=== PATIENT | female | born 1930 | race African-American/Black ===

== ENCOUNTER 2017-11-15 13:11 | Emergency (ER) | payer OTHER ==
[~2017-11-15] VITALS: Ht 165.1 cm; Wt 89.8 kg
--- NOTE | ~2017-11-15 | EKG ---
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 : 1930 Requested By: Billy Calles Order Number: [id number] MD: Van Paulson Measurements Intervals [place] Rate: 60 P: -10 DE: 208 QRS: 42 QRSD: 65 T: 218 QT: 419 QTc: 419 Interpretive Statements Sinus rhythm Abnormal R-wave progression, early transition LVH with secondary repolarization abnormality Compared to ECG 02/26/2010 11:04:03 ST and T wave abnormality is more pronounced early R-wave progression is no longer present Electronically Signed On 11-15-2017 17:34:44 SUBSTATION SUPERINTENDENT by Van Paulson [email or web address] <ELECTRONICALLY SIGNED> By: Van Paulson MD, FACC 11/15/17 1734 1333 1333 Van Paulson MD, [facility] /EPI
[~2017-11-15 13:11] MED LIST: ACCUPRIL40 MG PO; ALLOPURINOL 10100 M1 PO; AMLODIPINE BESY10 MG PO; AVAPRO300 MG PO; AZITHROMYCIN 2250 MG; CRESTOR40 MG PO; DARVOCET-N 1001 EACH PO; FLEXERIL PO; FOLIC ACID 1 MG1 MG GT; GLUCOPHAGE500 MG PO; HYDROCHLOROTH12.5 MG PO; HYDROCHLOROTHIA25 M1 PO; KRILL OIL 3001 EACH PO; MUCINEX600 MG; MULTIVITAMINS PO; NORVASC 5 MG TAB5 MG PO; OSELB75; PREDNISONE 10 M10 M1; SIMVASTATIN80 MG PO
[2017-11-15 13:59] LABS: URINE BILIRUBIN NEGATIVE (Negative); URINE BLOOD 1+ (Negative); URINE CLARITY CLEAR; URINE COLOR YELLOW; URINE GLUCOSE-RANDOM* NEGATIVE (Negative); URINE KETONES NEGATIVE (Negative); URINE LEUKOCYTES NEGATIVE (Negative); URINE NITRITE NEGATIVE (Negative); URINE PROTEIN (DIPSTICK) 2+ (Negative); URINE SPECIFIC GRAVITY 1.015 (1.005-1.035); URINE UROBILINOGEN 0.2 E.U./dl (0.2-1.0)
[2017-11-15 14:06] LABS: HEMOGLOBIN 12.5 gm/dL (12.0-15.0); MCH 24.3 pg (26.0-34.0); MCV 73.7 fL (80.0-100.0); PLATELET COUNT 219 thou/uL (150-400); RBC 5.15 mil/uL (4.20-5.00); RDW 15.9 % (10.5-14.5); WBC 7.5 thou/uL (4.0-11.0)
[2017-11-15 14:10] LABS: BACTERIA 1-9 Few /HPF (None Seen); CASTS None Seen /LPF (None Seen); SQUAMOUS 0-3 Few /LPF (0-3); URINE RBC 0-2 Rare /HPF (0-2); URINE WBC None Seen /HPF (0-5)
[2017-11-15 14:11] LABS: CRYSTALS None Seen /LPF (None Seen)
[2017-11-15 14:16] LABS: ANION GAP 6 mmol/L (7-16); BUN 28 mg/dL (7-18); CALCIUM 10.4 mg/dL (8.5-10.1); CHLORIDE 86 mmol/L (98-107); CO2 33 mmol/L (21-32); GLUCOSE 110 mg/dL (74-106); SODIUM 125 mmol/L (136-145)
[2017-11-15 14:18] LABS: POTASSIUM 2.9 mmol/L (3.5-5.1)
[2017-11-15 14:25] LABS: ALBUMIN 3.9 g/dL (3.4-5.0); SGOT 24 U/L (15-37); TOTAL BILIRUBIN 1.1 mg/dL (<0.1-1.0); TOTAL PROTEIN 7.2 g/dL (6.4-8.2); TROPONIN-I < 0.04 ng/mL (<0.06)
[2017-11-15 14:27] LABS: ABSOLUTE NEUTROPHILS 4.4 thou/uL (1.4-8.2)
[2017-11-15 14:29] LABS: ANISOCYTOSIS 1+; MICROCYTES 1+; OVALOCYTES FEW
[2017-11-15 14:41] LABS: SGPT 21 U/L (30-65)
[2017-11-15] MEDS ORDERED: POTASSIUM20 PO (15:20)
[2017-11-15 15:51] VITALS: BP 127/74
== END 2017-11-15 15:53 | disposition home or self-care (01) ==
LOC: ER 13:11
PROVIDERS: Physician Assistant
DX: I12.9 Hypertensive chronic kidney disease with stage 1 through stage 4 chronic kidney disease, or unspecified chronic kidney disease (principal); N18.9 Chronic kidney disease, unspecified; T50.995A Adverse effect of other drugs, medicaments and biological substances, initial encounter; E87.6 Hypokalemia; E87.1 Hypo-osmolality and hyponatremia; R55 Syncope and collapse; M25.561 Pain in right knee; M25.511 Pain in right shoulder; E78.00 Pure hypercholesterolemia, unspecified; M10.9 Gout, unspecified; Z90.710 Acquired absence of both cervix and uterus; Z88.8 Allergy status to other drugs, medicaments and biological substances; Y92.89 Other specified places as the place of occurrence of the external cause

== ENCOUNTER 2018-06-05 13:46 | Inpatient (IN) | payer OTHER ==
[~2018-06-05] VITALS: Ht 170.2 cm; Wt 85.9 kg
--- NOTE | ~2018-06-05 | PATH ---
[facility] [address] [address] PATHOLOGY RPT PROCEDURE Name: RICH DOWLING Room #: 204-P DIS IN M.R.#: [id number] Admission: 06/05/18 Date of : 31 Discharge: 06/08/18 Report #: [id number] Path Case #: [id number] [facility] Accession Number: [id number] . 01 Material submitted: . PART A: GASTRITIS BX PART B: SUBMUCOSAL NODULES (CARDIA OF STOMACH) BX . 01 Clinical history: . Atypical chest pain, gastritis, submucosal nodule in cardia of stomach, rule out H. pylori . 02 Diagnosis: A. Gastric biopsy "gastric biopsy": - Mild to moderate chronic reactive gastropathy with mild chronic inflammation. - The immunoperoxidase stains for Helicobacter pylori is negative. . B. 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 - The immunoperoxidase stains for Helicobacter pylori is negative. (SHA:pit 06/08/2018) QTP/06/08/2018 . 02 Electronically signed: . Yuval Marks MD, Pathologist NPI- [id number] . 01 Gross description: . A. Received in formalin "Rich Dowling, gastritis BX rule out H. pylori" are 4 soft nunez tissue fragments, 0.1-0.3 cm which are entirely submitted as A1. . B. Received in formalin labeled "Rich Dowling, submucosal nodule cardia of stomach BX" is a 0.3 cm nunez and hemorrhagic tissue fragment which is entirely submitted as B1. (POLI; 06/07/2018) JBR/JBR . 02 Pathologist provided ICD-10: K29.50, K31.9 . 02 CPT . 779712, 769875, R84288 Specimen Comment: A courtesy copy of this report has been sent to Specimen Comment: [phone], . [place] [address] PATHOLOGY RPT PROCEDURE Name: RICH DOWLING Room #: 204-P [facility] IN M.R.#: [id number] Admission: 06/05/18 Date of : 31 Discharge: 06/08/18 Report #: [id number] Path Case #: [id number] Specimen Comment: Report sent to / DR MASON Performed at: [address], [place], [place] [id number] MD Juan Fried MD Phone: [phone] Performed at: [address] [id number] MD Luann Paez MD Phone: [phone]
--- NOTE | ~2018-06-05 | HC ---
[facility] [place] [address] [place] [address] CONSULTATION Name: RICH RIVERA Room #: 204-P [facility] IN M.R.#: [id number] Admission: 06/05/18 Attend Phys: Daniel Denny MD Discharge: 06/08/18 Date of : 31 Report #: [id number] THIS REPORT FOR: //name// CC: Daniel Denny Nephrology Consultation REASON FOR CONSULTATION: Chronic kidney disease and electrolyte imbalance. HISTORY OF PRESENT ILLNESS: This 88-year-old patient has chronic kidney disease with a baseline creatinine between 1.5 and 2 at the age of 88. She has longstanding hypertension, presumed hypertensive nephrosclerosis, has had acute renal injury in the past due to overuse of nonsteroidal anti-inflammatory medications and saw my partner, Dr. Santiago in 2013 with that problem. At this time, she was admitted with shoulder pain, which precipitated a rash of ibuprofen, which resulted in upset stomach, nausea, vomiting, poor p.o. intake, which resulted in electrolyte imbalance, further elevation of serum creatinine and weakness. She was admitted 2 days ago with those problems. Today, she had EGD, which revealed erosive antral lesions, which appeared to be healing. At the time of admission, her creatinine was 2.5, serum sodium of 117. Her urine sodium today is 56 and her urine creatinine 35, urine osmolarity pending. She also had hypokalemia at the time of admission with a serum potassium of 2.9, now up to 3.5 with replacement. Serum sodium has gone from 117 to 123 with gentle IV saline. PAST MEDICAL HISTORY: Longstanding hypertension, chronic kidney disease as mentioned. She has had multinodular goiter, hyperuricemia; hypertension, treated with irbesartan and amlodipine, as well has been on chronic hydrochlorothiazide, also takes Krill oil. ALLERGIES: Listed to NAPROXEN. REVIEW OF SYSTEMS: GENERAL: She has been feeling poorly and weak with some nausea and vomiting and poor appetite. EYES: Vision okay with corrective lenses. ENT: No mouth sores or ulcers. Hearing okay. ENDOCRINE: No diabetes or thyroid disease. RESPIRATORY: No shortness of breath, wheezing or asthma. CARDIAC: No palpitations, angina, heart failure or history of NH. GASTROINTESTINAL: As above. GENITOURINARY: Good urinary stream without dysuria or renal stone disease. NEUROLOGIC: No seizure, syncope, stroke or history of nephropathy. FAMILY HISTORY: Positive for hypertension. [address] [address] CONSULTATION Name: RICH RIVERA Room #: 204-P [facility] IN [facility].#: [id number] Admission: 06/05/18 Attend Phys: Daniel Denny MD Discharge: 06/08/18 Date of : 31 Report #: [id number] PHYSICAL EXAMINATION: GENERAL: This is an elderly patient. She is bright, alert, feeling well, eating her dinner. No apparent issues or problems at the current time. SKIN: Unremarkable. SKELETAL: Well developed, well nourished. HEENT: Extraocular movements full. Vision okay with corrective lenses. No scleral icterus. Hearing and vision intact. Mucous membranes moist. Tongue, buccal mucosa benign. NECK: Supple, no carotid bruits are heard. CHEST: Clear to auscultation. HEART: Regular with systolic murmur. ABDOMEN: Soft and nontender, without organomegaly. EXTREMITIES: Show no peripheral edema. Peripheral pulses are diminished. NEUROLOGIC: Grossly intact. LABORATORY DATA: As mentioned. Urine was isosthenuric at presentation without evidence of cells or casts. The hemoglobin is 11.9, the platelets are 251. Sodium 123, potassium 3.5, chloride 91, bicarbonate 25, BUN 28, creatinine 1.6. ASSESSMENT AND PLAN: Hypo-osmolar syndrome. She was hypo-osmolar multifactorially with poor p.o. intake, nausea, vomiting, hydrochlorothiazide, which diminishes free water clearance and leads to volume depletion and ibuprofen, which also diminishes free water clearance, as well as her chronic kidney disease, which diminishes free water clearance. She is gradually coming back. I believe at this point, her blood pressure being well controlled, volume status being okay that a couple of salt pills might help us accelerate the slow recovery process, as well as blood pressure stays down. She really does not need much else in the way of treatment. I suspect her urine osmolarity will come back showing some diminishment of free water clearance without a real dilute urine. As the ibuprofen, hydrochlorothiazide wear off, she may come back grinder to normal. With her chronic kidney disease, probably will remain relatively isosthenuric and adequate solute intake, which she appears to be now approaching will certainly help rebalance her serum sodium and get her back to normal. Certainly, hypothyroidism must be considered. I note that she had a very low TSH in the past, but no TSH measured recently and so that will need to be rechecked and I really do not believe given the hypokalemia that we need to worry much about the possibility of adrenal insufficiency here. We will follow her along. Thank you for letting me see this very pleasant woman. <ELECTRONICALLY SIGNED> By: Luis Metzger MD 06/28/18 1054 1757 0049 Luis Metzger MD /nt
--- NOTE | ~2018-06-05 | H ---
[facility] [place] [address] [place] [address] HISTORY AND PHYSICAL Name: RICH RIVERA Room #: 204-P [facility] IN M.R.#: [id number] Admission: 06/05/18 Attend Phys: Daniel Denny MD Discharge: Date of : 31 Report #: [id number] THIS REPORT FOR: //name// CC: Daniel Denny DATE OF SERVICE: 06/05/2018 CHIEF COMPLAINT: Chest pain, fatigue, no appetite. HISTORY OF PRESENT ILLNESS: The patient came to the Emergency Room with these complaints and was found to have a serum sodium of 117 along with a potassium of 2.5 and an elevated creatinine and required treatment in the Emergency Room and inpatient admission. She was seen in my office on 05/25/2018 for her right shoulder pain and referred to Dr. Rosales with whom she has an appointment on 06/06/2018. She had blood drawn on that day and was rescheduled to return to discuss the results. Her right shoulder pain has been present for a month or more and had been getting worse for the last several weeks. She reports having taken an occasional ibuprofen for it. She then developed poor appetite and anorexia slightly more than a week ago and has persisted on crackers and juice since then. She told the GI service that she was taking ibuprofen on a daily basis and that her acid reflux symptoms as "heartburn" became more prominent. She began taking yfra-khn-tupoxop Tums more frequently. At the same time, her appetite continued to decrease. PAST MEDICAL HISTORY: Significant for hypertension, gout, chronic kidney disease and a past history of kidney injury from NSAID medications for which she saw Dr. Santiago on 03/26/2014. Her creatinine in my office on 05/25/2018 had improved to 1.55 with a BUN of 22 from previous February values of 1.97 and 26. Her calcium has been high at 10.5 and 10.7, and she has mildly elevated parathyroid hormone of 68 (14-64). She has had low potassiums in the past. Hyperlipidemia. She has a large multinodular goiter. She has had several scattered pulmonary nodules in the past. She has chronic microcytosis running a hemoglobin of 13.4 and 12.7 earlier this summer in my office. CURRENT MEDICATIONS: She has continued to take hydrochlorothiazide 25 mg 1/[address] [address] HISTORY AND PHYSICAL Name: NICOLERICH EVELIN Room #: 204-P [facility] IN [facility].#: [id number] Admission: 06/05/18 Attend Phys: Daniel Denny MD Discharge: Date of : 31 Report #: [id number] daily while she has been ill and she does this ordinarily for hypertension, irbesartan 300 mg 1/2 tablet daily, amlodipine 10 mg 1 full tablet daily, rosuvastatin 40 mg 1/2 tablet daily, allopurinol 100 mg 1 or 2 tablets most often during the summer season when tomatoes are fresh and plentiful because she loves tomatoes and they trigger her gout. She no longer takes prescription potassium, but takes an oral hzcj-tmm-pywcnwo potassium supplement daily. An additional medication is aggx-kxf-bwhdxlv Krill oil and multiple vitamin tablets. ALLERGIES: ONLY ONE LISTED IS NAPROXEN, BUT SHE HAS A HISTORY OF RENAL INJURY FROM NSAID MEDICATIONS. REVIEW OF SYSTEMS: Negative except for the HPI. FAMILY HISTORY: Noncontributory. PHYSICAL EXAMINATION: GENERAL: Shows an 88-year-old female, in her hospital bed. She is seen approximately 12 hours after having received replacement doses of IV and oral potassium and a liter of saline, and she feels much better. HEENT: Remarkable for her oropharynx still being dry. NECK: Full from her known multinodular goiter. LUNGS: Clear. HEART: Her heart tones are normal, and there is a soft systolic murmur present. ABDOMEN: Soft, nontender, without hepatosplenomegaly or masses. EXTREMITIES: There is no pedal edema present in the lower extremities. NEUROLOGIC: Screening neurological examination is intact. LABORATORY DATA: Serum sodium was 117 in the Emergency Room, and this morning has risen to 120. It was 138 on 05/25/2018 in the office. Potassium was 2.5 in the ER and 12 hours later, is now 3.4. It was 3.8 on 05/25/2018 in the office. Creatinine was 2.0 in the ER and now it is 1.8 with the baseline being 1.55 on 05/25/2018 and was 1.97 on 03/14/2018. BUN remains at 27, it was 22 in the office on 05/25/2018 and was 26 on 03/14/2018 in the office. Magnesium is 2.0 and uric acid is 4.4. Albumin is 4.1. D-dimer is normal. Hemoglobin is 13.1 after dropping from 13.9 in the ER and response to rehydration. MCV is 73.9, and in the office on 05/25/2018, it was 77.5 and 2 months earlier, 77.9. Urinalysis shows 2+ blood with 10 epithelial cells and rare bacteria, and a culture is pending. Chest x-ray (because of a report of cough) suggested minor basilar atelectasis along with previously known large goiter in the right superior mediastinum that appears unchanged. [address] [place] [address] HISTORY AND PHYSICAL Name: RICH RIVERA Room #: 204-P [facility] IN M.R.#: [id number] Admission: 06/05/18 Attend Phys: Daniel Denny MD Discharge: Date of : 31 Report #: [id number] ASSESSMENT: 1. Profound hyponatremia and hypokalemia as a result of decreased oral intake while continuing to take her hydrochlorothiazide. 2. Progressively severe right shoulder pain. 3. Increasing heartburn and reflux disease adding to/causing her poor appetite, likely from non-steroidal antiinflammatory medication. 4. She has been taking ibuprofen regularly, it is unclear if it is 1 or more tablets a day. 5. 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 6. Progressive microcytosis. 7. Acute kidney injury on top of chronic kidney disease, stage 3. 8. Hyperlipidemia. 9. Nonspecific cough. 10. Hypercalcemia with an elevated parathyroid hormone of 68. 11. Volume depletion and dehydration. 12. Other medical problems as mentioned above. PLAN: The patient is to continue her intravenous saline to replace her last serum sodium as well as reexpand her vascular volume slowly. The saline contains potassium and she is also given oral potassium replacement. She will be seen in orthopedic consultation because of her right shoulder pain that seemed to precipitate this current episode of illness. She will be seen in gastroenterology consultation because of her epigastric pain and discomfort leading to the poor oral intake, which led to her electrolyte disturbance. CT scan will reassess her thyroid and small pulmonary nodules seen on previous CT scan as well as examine the abdomen and pelvis for causes of anorexia. By: 2041 2211 Daniel Denny MD /nt
--- NOTE | ~2018-06-05 | P ---
[facility] [place] [address] [place] [address] PROCEDURE REPORT Name: RICH RIVERA Room #: 204-P [facility] IN M.R.#: [id number] Admission: 06/05/18 Attend Phys: Daniel Denny MD Discharge: Date of : 31 Report #: [id number] THIS REPORT FOR: //name// CC: Daniel Denny MD BRIEF HISTORY: The patient is an 88-year-old woman who presented with atypical chest pain and upper abdominal pain. It was felt to be noncardiac in etiology. PREOPERATIVE DIAGNOSES: Atypical chest pain and upper abdominal pain. POSTOPERATIVE DIAGNOSES: 1. Moderate erosive antral gastritis, prepyloric antrum. 2. Small, less than 1-cm subcutaneous nodule, cardia of stomach. 3. Small 1-2-cm sliding type hiatus hernia. MEDICATIONS: Deep sedation with propofol per anesthesia. SPECIMENS: 1. Biopsies of erosive gastritis. 2. Biopsies of nodule, cardia of stomach. ESTIMATED BLOOD LOSS: 3 mL. PROCEDURE: EGD with biopsy. FINDINGS: Prior to propofol sedation, procedure of upper endoscopy was discussed with the patient as well as potential risks and its complications. She indicates she understands and desires to proceed. DESCRIPTION OF PROCEDURE: With the patient in left lateral decubitus position, the Olympus video endoscope was inserted in the cervical esophagus under direct vision without difficulty. Examination of this organ through its entire length revealed normal esophageal mucosa down the squamocolumnar junction. Squamocolumnar junction was inspected and noted to be unremarkable. No ulcers, erosions or Nicholas mucosa was seen. Intermittently, a small 1-2-cm sliding type hiatus hernia was noted. The scope was advanced into the stomach, which was examined on end view as well as retroflexed views. She was noted to have moderate erosive changes in the prepyloric antrum. They were shallow, but larger than typically seen. It is possible these may be healing ulcers. However, ulcer craters were not seen this time. Multiple biopsies were obtained. Upon retroflexion, the mucosa in the proximal stomach was noted to be normal. However, there was a small, less than 1-cm submucosal nodule in the cardia of the stomach. It had a smooth and benign appearance. Multiple biopsies were obtained. However, since this is submucosal, biopsies may be nondiagnostic. The pylorus, duodenal bulb and postbulbar duodenal sweep were unremarkable. The duodenal papilla was identified and noted to be unremarkable. [address] [address] PROCEDURE REPORT Name: RICH RIVERA Room #: 204-P [facility] IN M.R.#: [id number] Admission: 06/05/18 Attend Phys: Daniel Denny MD Discharge: Date of : 31 Report #: [id number] At that point, the scope was slowly withdrawn and careful circumferential views confirmed the above findings. The patient tolerated the procedure well. DISPOSITION: The patient with epigastric pain and atypical chest pain. This may be result of reflux disease, although erosive esophagitis was not seen. I would agree with use of a proton pump inhibitor. She should also be cautious with the use of nonsteroidals. She may have had ulcers she reports also in the past. We will follow up on biopsies for H. pylori and if positive, she may benefit from treatment. The submucosal nodule is small and less than 1 cm, has a benign appearance. The biopsies may or may not be diagnostic. 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 At this point in her life, this is likely a minimal significance to her. However, we will follow up on biopsies and make further recommendations as needed. <ELECTRONICALLY SIGNED> By: Gatito Ray MD 06/07/18 1502 1148 1321 Gatito Ray MD /nt
--- NOTE | ~2018-06-05 | EKG ---
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 MAGUIRE : 1930 Requested By: Hernandez Madden Order Number: [id number] MD: Van Paulson Measurements Intervals [place] Rate: 56 P: -62 MA: 227 QRS: 33 QRSD: 67 T: 123 QT: 421 QTc: 407 Interpretive Statements Sinus or ectopic atrial bradycardia Prolonged MA interval Abnormal R-wave progression, early transition LVH with secondary repolarization abnormality ST depression, diffuse lds Compared to ECG 11/15/2017 13:33:04 No significant change was found Electronically Signed On 06-06-2018 7:54:59 CDT by Van Paulson [email or web address] <ELECTRONICALLY SIGNED> By: Van Paulson MD, [facility] 06/06/18 0754 1413 1413 Van Paulsno MD, [facility] /EPI
[~2018-06-05 13:46] MED LIST changes: +POTASSIUM20 PO
[2018-06-05 13:57] VITALS: BP 115/57
[2018-06-05] MEDS ORDERED: TRAMADOL 50 MG50 MG PO (14:38)
[2018-06-05 14:40] LABS: ABSOLUTE NEUTROPHILS 6.1 thou/uL (1.4-8.2); EOSINOPHILS 0.3 % (0.0-3.0); HEMATOCRIT 41.7 % (37.0-47.0); HEMOGLOBIN 13.9 gm/dL (12.0-15.0); LYMPHOCYTES 22.1 % (24.0-44.0); MCH 24.6 pg (26.0-34.0); MCHC 33.3 g/dL (28.0-37.0); MCV 73.9 fL (80.0-100.0); MONOCYTES 11.6 % (1.0-8.0); PLATELET COUNT 291 thou/uL (150-400); RBC 5.64 mil/uL (4.20-5.00); RDW 14.7 % (10.5-14.5); WBC 9.4 thou/uL (4.0-11.0)
[2018-06-05 14:54] LABS: BUN 27 mg/dL (7-18); CALCIUM 10.8 mg/dL (8.5-10.1); CHLORIDE 80 mmol/L (98-107); CO2 29 mmol/L (21-32); GLUCOSE 145 mg/dL (74-106)
[2018-06-05 14:56] LABS: ANION GAP 8 mmol/L (7-16)
[2018-06-05 14:57] LABS: POTASSIUM 2.9 mmol/L (3.5-5.1); SODIUM 117 mmol/L (136-145)
[2018-06-05 15:02] LABS: ALBUMIN 4.1 g/dL (3.4-5.0); SGOT 26 U/L (15-37); SGPT 26 U/L (30-65); TOTAL BILIRUBIN 1.7 mg/dL (<0.1-1.0); TOTAL PROTEIN 7.9 g/dL (6.4-8.2); TROPONIN-I <0.06 ng/mL (<0.06)
[2018-06-05 15:08] LABS: HYPOCHROMASIA 2+; MICROCYTES 2+
[2018-06-05 15:24] LABS: CALCIUM 10.8 mg/dL (8.5-10.1)
[2018-06-05 15:26] LABS: POTASSIUM 2.5 mmol/L (3.5-5.1)
[2018-06-05 17:04] VITALS: BP 144/48
[2018-06-05 19:24] LABS: CALCIUM 10.7 mg/dL (8.5-10.1); CREATININE 1.8 mg/dL (0.6-1.0)
[2018-06-05 20:18] VITALS: BP 138/59
[2018-06-06 00:03] VITALS: BP 118/53
[2018-06-06 01:04] LABS: URINE BILIRUBIN NEGATIVE (Negative); URINE BLOOD 2+ (Negative); URINE CLARITY CLEAR; URINE COLOR YELLOW; URINE GLUCOSE-RANDOM* NEGATIVE (Negative); URINE KETONES NEGATIVE (Negative); URINE NITRITE-REFLEX NEGATIVE (Negative); URINE PROTEIN (DIPSTICK) TRACE (Negative); URINE UROBILINOGEN 0.2 E.U./dl (0.2-1.0)
[2018-06-06 01:05] LABS: URINE LEUKOCYTES-REFLEX 1+ (Negative)
[2018-06-06 01:10] LABS: SQUAMOUS 4-10 Moderate /LPF (0-3)
[2018-06-06 01:11] LABS: BACTERIA-REFLEX 1-9 Few /HPF (None Seen); CASTS None Seen /LPF (None Seen); CRYSTALS None Seen /LPF (None Seen); MUCUS None Seen strn/LPF (None Seen); URINE RBC 0-2 Rare /HPF (0-2); URINE WBC-REFLEX 0-5 Rare /HPF (0-5)
[2018-06-06 02:05] LABS: ABSOLUTE NEUTROPHILS 5.4 thou/uL (1.4-8.2); BASOPHILS 0.9 % (0.0-2.0); EOSINOPHILS 0.4 % (0.0-3.0); HEMATOCRIT 39.2 % (37.0-47.0); HEMOGLOBIN 13.1 gm/dL (12.0-15.0); LYMPHOCYTES 19.7 % (24.0-44.0); MCH 24.7 pg (26.0-34.0); MCHC 33.4 g/dL (28.0-37.0); MCV 73.8 fL (80.0-100.0); MONOCYTES 10.8 % (1.0-8.0); PLATELET COUNT 275 thou/uL (150-400); POLYS 68.2 % (36.0-66.0); RBC 5.32 mil/uL (4.20-5.00); RDW 14.8 % (10.5-14.5); WBC 7.9 thou/uL (4.0-11.0)
[2018-06-06 02:16] LABS: ALBUMIN 3.5 g/dL (3.4-5.0); ANION GAP 8 mmol/L (7-16); BUN 27 mg/dL (7-18); CALCIUM 9.9 mg/dL (8.5-10.1); CHLORIDE 85 mmol/L (98-107); CO2 27 mmol/L (21-32); CREATININE 1.8 mg/dL (0.6-1.0); GLUCOSE 117 mg/dL (74-106); POTASSIUM 3.4 mmol/L (3.5-5.1); SGOT 23 U/L (15-37); SGPT 25 U/L (30-65); SODIUM 120 mmol/L (136-145); TOTAL BILIRUBIN 1.4 mg/dL (<0.1-1.0); TOTAL PROTEIN 6.9 g/dL (6.4-8.2); TROPONIN-I <0.06 ng/mL (<0.06)
[2018-06-06 03:46] VITALS: BP 109/52
[2018-06-06 08:24] VITALS: BP 111/54
[2018-06-06 11:30] VITALS: BP 111/54
[2018-06-06 12:28] LABS: % SATURATION 27 % (20-39); IRON 86 ug/dL (50-170); TIBC 323 ug/dL (250-450)
[2018-06-06 15:31] VITALS: BP 103/40
[2018-06-06 19:53] VITALS: BP 127/51
[2018-06-07 03:20] LABS: HEMATOCRIT 36.2 % (37.0-47.0); HEMOGLOBIN 11.9 gm/dL (12.0-15.0); MCH 24.6 pg (26.0-34.0); MCHC 32.8 g/dL (28.0-37.0); RBC 4.83 mil/uL (4.20-5.00); RDW 14.8 % (10.5-14.5); WBC 7.5 thou/uL (4.0-11.0)
[2018-06-07 03:31] LABS: ALBUMIN 3.2 g/dL (3.4-5.0); CALCIUM 9.1 mg/dL (8.5-10.1); CREATININE 1.6 mg/dL (0.6-1.0); POTASSIUM 3.5 mmol/L (3.5-5.1); TOTAL BILIRUBIN 1.3 mg/dL (<0.1-1.0); TOTAL PROTEIN 6.1 g/dL (6.4-8.2)
[2018-06-07 05:14] VITALS: BP 108/48
[2018-06-07 07:44] VITALS: BP 107/54
[2018-06-07 09:28] LABS: URINE POTASSIUM-RANDOM* 22.1 mmol/L
[2018-06-07 12:25] VITALS: BP 126/56
[2018-06-07 13:19] LABS: ABSOLUTE RETIC COUNT 0.0609 10^6/uL; OBSERVED RETIC COUNT 1.29 % (0.6-2.6)
[2018-06-07 15:33] VITALS: BP 126/56
[2018-06-07 19:58] VITALS: BP 107/51
[2018-06-08 03:18] LABS: ALBUMIN 3.3 g/dL (3.4-5.0); CALCIUM 9.4 mg/dL (8.5-10.1); CREATININE 1.6 mg/dL (0.6-1.0); PHOSPHORUS 2.9 mg/dL (2.5-4.9); POTASSIUM 3.8 mmol/L (3.5-5.1)
[2018-06-08 04:22] VITALS: BP 95/45
[2018-06-08 08:10] VITALS: BP 119/56
[2018-06-08] MEDS ORDERED: VOLTAREN GEL 1100 G2 TOP (08:51)
[2018-06-08] MEDS ORDERED: NORCO 5-325 TA1 EACH PO (08:51)
[2018-06-08] MEDS ORDERED: PANTOPRAZOLE SO40 M1 PO (08:51)
[2018-06-08] MEDS ORDERED: TRAMADOL 50 MG50 MG PO (08:53)
[2018-06-08 09:35] VITALS: BP 119/56
== END 2018-06-08 10:54 | disposition home or self-care (01) | DRG 683 ==
LOC: ER 13:46 → EROBS 15:42 → 2N 15:42 → ENTRNSPT 06-08 10:29 → EDTRNSPTSTS 06-08 10:30 → 2N 06-08 10:54
PROVIDERS: Emergency Medicine; Internal Medicine; Nurse Practitioner; Specialist
PROC: 0DB68ZX Excision of Stomach, Via Natural or Artificial Opening Endoscopic, Diagnostic (ICD-10-PCS; principal; 2018-06-07)
DX: N17.9 Acute kidney failure, unspecified (principal); E87.1 Hypo-osmolality and hyponatremia; K29.00 Acute gastritis without bleeding; R63.0 Anorexia; E78.00 Pure hypercholesterolemia, unspecified; M10.9 Gout, unspecified; K57.90 Diverticulosis of intestine, part unspecified, without perforation or abscess without bleeding; E87.6 Hypokalemia; E78.5 Hyperlipidemia, unspecified; R12 Heartburn; K21.9 Gastro-esophageal reflux disease without esophagitis; N18.3 Chronic kidney disease, stage 3 (moderate); I12.9 Hypertensive chronic kidney disease with stage 1 through stage 4 chronic kidney disease, or unspecified chronic kidney disease; E83.52 Hypercalcemia; E86.0 Dehydration; E86.9 Volume depletion, unspecified; K44.9 Diaphragmatic hernia without obstruction or gangrene; R91.1 Solitary pulmonary nodule; M13.88 Other specified arthritis, other site; Z90.710 Acquired absence of both cervix and uterus; Z88.8 Allergy status to other drugs, medicaments and biological substances; Z79.899 Other long term (current) drug therapy; Z90.49 Acquired absence of other specified parts of digestive tract
CPT/HCPCS: 10081; 62110; 62900; 70005

== ENCOUNTER 2018-07-20 19:59 | Inpatient (IN) | payer OTHER ==
[~2018-07-20] VITALS: Ht 165.1 cm; Wt 83.0 kg
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
--- NOTE | ~2018-07-20 | PATH ---
[facility] [address] [place] [address] PATHOLOGY RPT PROCEDURE Name: RICH DOWLING EVELIN Room #: 352-P DIS IN M.R.#: [id number] Admission: 07/20/18 Date of : 31 Discharge: 07/23/18 Report #: [id number] Path Case #: [id number] [facility] Accession Number: [id number] . 01 Material submitted: . BX OF ANTRUM TO R/O H. PYLORI . 01 Clinical history: . Epigastric pain . 02 Diagnosis: Gastric biopsy, "biopsy of antrum, rule out H. pylori": - Mild chronic reactive gastropathy. - The immunoperoxidase stain for Helicobacter pylori is negative. . (SHA:vjm;07/22/2018) AGA/07/22/2018 . 02 Electronically signed: . Yuval Marks MD, Pathologist NPI- [id number] . 01 Gross description: . Received in formalin labeled "Rich Dowling, BX of antrum to rule out H. pylori," is a single segment of nunez soft tissue measuring 0.5 cm in maximum dimension. The specimen is entirely submitted in cassette A1. (TSD; 07/21/2018) TOB/TOB . 02 Pathologist provided ICD-10: K31.9 . 02 CPT . 481329, N15537 Specimen Comment: A courtesy copy of this report has been sent to Specimen Comment: [phone], . Specimen Comment: Report sent to / DR MASON Specimen Comment: A duplicate report has been generated due to demographic updates. Performed at: [address], [place] [id number] MD Juan Fried MD Phone: [phone] Performed at: [address] [id number] MD Luann Paez MD Phone: [phone]
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
--- NOTE | ~2018-07-20 | EKG ---
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: SISI : 1930 Requested By: Emily Russell Order Number: [id number] MD: Leonel Mendez Measurements Intervals [place] Rate: 67 P: -50 SC: 228 QRS: 33 QRSD: 78 T: 188 QT: 403 QTc: 426 Interpretive Statements Sinus or ectopic atrial rhythm Prolonged SC interval Abnormal R-wave progression, early transition Probable LVH with secondary repol abnrm ST depression, consider ischemia, diffuse lds Compared to ECG 06/05/2018 14:13:29 Electronically Signed On 07-21-2018 8:42:54 CDT by Leonel Mendez [email or web address] <ELECTRONICALLY SIGNED> By: Leonel Mendez MD 07/21/18841 57 57 Leonel Mendez MD /EPI
--- NOTE | ~2018-07-20 | D ---
[facility] [place] [address] DISCHARGE SUMMARY Name: RICH RIVERA Room #: 352-P [facility] IN M.R.#: [id number] Admission: 07/20/18 Attend Phys: Daniel Denny MD Discharge: 07/23/18 Date of : 32 Report #: [id number] THIS REPORT FOR: //name// CC: Gatito Denny DATE OF SERVICE: 07/23/2018 SUMMARY OF HISTORY AND PHYSICAL: Abdominal and epigastric pain: The patient presented to the Emergency Room after having a week's worth of progressive abdominal pain. She described the discomfort as being worse when eating and better when not eating. The pain was not radiating. Previous EGD was done 06/05/2018 with moderate erosive antral gastritis in the prepyloric area that could have been healing ulcers. She was also found to have severely low sodium of 119 and low potassium of 2.5 and required admission for evaluation and correction of these abnormalities. SUMMARY OF HOSPITAL COURSE: She was treated with intravenous normal saline with potassium added throughout her hospital stay and her serum sodium slowly increased from 119 to 125 to 131 to 133 on the day of discharge. The potassium increased from 2.5 to 3.5 on the day of discharge. She was volume depleted as evidenced by a BUN of 23 on admission that dropped to 18 and a creatinine of 1.9 that dropped to 1.4 as the IV fluids were continued. Her bilirubin was elevated at 2.2 on admission and dropped to 0.9. Her liver enzymes were not elevated. Total protein was 7.9 and dropped to 6.0 with rehydration, albumin 4.0 dropped to 3.0 and hemoglobin dropped from 14.3 to 10.9. She was seen in GI consultation and an EGD was performed. Additional information obtained by Dr. Lilian Hopkins showed that the patient had not taken her Protonix at home (which was prescribed on her hospitalization from 06/05/2018 to 06/08/2018), but did take her Aleve, which she had been told not to take. The EGD again showed erosive antral gastritis. The small sliding hiatal hernia was not seen on this followup EGD. There may have been a possible segment of Nicholas's in the distal esophagus and a lipoma in the cardia was again seen. In the Emergency Room, she was given a GI cocktail and her symptoms completely resolved for a short time. She clearly remembered the medication when later she said that she wanted to take that white stuff that was in the small container. Her symptoms improved with resumption of twice daily proton pump inhibitor ____. She did not get NSAID medications in the hospital. On the day of discharge, she was eating a normal diet, but did say that she would like something more to help ease her stomach, and therefore Carafate will be added twice daily at home. She has been on multiple hypertensive medications in the past of amlodipine, [address] [address] DISCHARGE SUMMARY Name: RICH RIVERA Room #: 352-P [facility] IN Julio.Bashir#: [id number] Admission: 07/20/18 Attend Phys: Daniel Denny MD Discharge: 07/23/18 Date of : 31 Report #: [id number] irbesartan and hydrochlorothiazide. In the hospital, adequate blood pressure control was present with amlodipine 10 mg as a single agent being 100/40 to 127/56. Her respirations were 15 and pulse between 59 and 88. Her right shoulder has been a painful problem for her in the past and on various hospital days she would say it did not bother her and then would say that it was quite bothersome. She was able to walk to the bathroom and back and stable and steady without needing assistance. LABORATORY DATA: Admitting sodium was 119 and was 133 at discharge. Potassium was 2.5 and 3.5 at discharge. BUN was 23 on admission and 18 at discharge, creatinine 1.9 on admission and 1.4 at discharge. Bilirubin was high at 2.2 on admission and dropped to 0.9 at discharge. Her AST was normal at 29 and 19 and her ALT was low at 25 and 20. Total protein was at the upper limits of normal at 7.9 on admission and low at 6.0 after rehydration. Albumin was 4.0 and dropped to 3.0 at discharge. Hemoglobin is 14.3 on admission and dropped to 10.9 at discharge. Troponin was 0.06. INR was 1.0. WBCs were 7.1 on admission, hemoglobin of 14.3. MCV was low at 74.7 and platelets are normal at 290,000. PMN slightly elevated at 66.2 and lymphocytes low at 22.0 and monocytes high at 10.6%. Urinalysis showed trace protein, 1+ blood with 1-9 few bacteria seen. Urine culture was not performed. CT scan of the abdomen and pelvis without contrast showed several nodules in the lung bases that were unchanged in size from a previous CT from 06/06/2018. Mild steatosis was present. The gallbladder was not seen, but there was no evidence of gallbladder surgery. Moderate arterial calcification was seen. The appendix was identified without signs of inflammation. There was a large volume of stool seen throughout the ascending, transverse and proximal descending colon. The uterus was surgically absent. Moderate degenerative changes involving the lower lumbar spine appeared chronic. A small umbilical hernia containing only fat was seen. Gastric emptying study was normal. Portable chest x-ray showed a mass under the right clavicle that on previous CT showed a lobulation from the right lower pole of the thyroid. There is a healed fracture of the posterior right fourth rib. DISCHARGE DIAGNOSES: 1. Abdominal pain secondary to acute antral gastritis. 2. Hyponatremia, hypokalemia and volume depletion replaced with IV fluids. 3. Acute kidney injury that resolved with IV fluids. 4. Chronic kidney disease, stage 3. 5. She could have healing ulcers on this admission and on the previous EGD from her last admission, EGD of 06/07/2018 - these could also be healing ulcers. [facility] [address] [place] [address] DISCHARGE SUMMARY Name: RICH RIVERA EVELIN Room #: 352-P [facility] IN .R.#: [id number] Admission: 07/20/18 Attend Phys: Daniel Denny MD Discharge: 07/23/18 Date of : 31 Report #: [id number] 6. Small sliding hiatal hernia. 7. 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 8. 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 9. Constipation. 10. Hypertension. 11. Enlarged thyroid gland with multiple nodules unchanged from 11/21/2012 CT scan. 12. Multiple noncalcified pulmonary nodules most of which were not seen on 11/21/2012 CT scan, but were defined on 06/06/2018 CT scan and unchanged on CT of 07/20/2016. 13. Mild hepatic steatosis. 14. Unclear typed report of CT regarding the presence or absence of dilatation of the ureters and presence or absence of kidney stones. 15. Right shoulder pain, persists, severity is variable. 16. Hyperlipidemia. 17. Distant history of gout. 18. Report of having a [facility] in 2013 at [facility] with the findings of hemorrhoids and diverticulosis. 19. Cognitive dysfunction. Please see speech therapy evaluation. Immediate recall memory is severely impaired at 0-24%. Cognition severely impaired at 25-49%, functional verbal and nonverbal expression retained at 90-100%, auditory or visual comprehension mildly impaired at 80-89% . The patient told speech therapist that she knows her son, thinks that she is losing it. Of note, speech therapy evaluation showed significant memory and cognitive deficits. Her presentation to the hospital on this occasion is well explained assuming that she continued to take hydrochlorothiazide (that she had been told not to) and also continued to take Aleve for her shoulder and other aches and pains and did not take the pantoprazole, which was a new medication on her May admission. The finding of significant cognitive deficits supports the possibility of this happening: The speech therapy recommends involving her son at physician visits and with her medication management. DISCHARGE MEDICATIONS: Limited to: Diclofenac gel to her sore joints twice daily, amlodipine 10 mg once daily, pantoprazole 40 mg before breakfast and dinner, tramadol 50 mg up to 4 times a day as needed for painful joints. Sucralfate 1 gram mid morning and again midafternoon is the new medication that is added. She is to come see me in my office the following week and to bring all of her medications including the ones she is supposed to have discontinued. Laboratory will be repeated to be sure her electrolytes have normalized. Greater assistance from her son will be pursued. ADDITIONAL DIAGNOSIS: Ongoing right shoulder pain at the rotator cuff/bicipital [facility] [address] [place] [address] DISCHARGE SUMMARY Name: RICH RIVERA Room #: 352-P [facility] IN Jammie#: [id number] Admission: 07/20/18 Attend Phys: Daniel Denny MD Discharge: 07/23/18 Date of : 31 Report #: [id number] tendon of varied severity. It is not known if she has actually made it to the orthopedist's office and had a steroid injection in this area. By: [id number] Daniel Denny MD /nt
[~2018-07-20 19:59] MED LIST changes: +NORCO 5-325 TA1 EACH PO; +PANTOPRAZOLE SO40 M1 PO; +TRAMADOL 50 MG50 MG PO; +VOLTAREN GEL 1100 G2 TOP
[2018-07-20 20:08] VITALS: BP 125/57
[2018-07-20 20:59] LABS: URINE BILIRUBIN NEGATIVE (Negative); URINE BLOOD 1+ (Negative); URINE CLARITY CLEAR; URINE COLOR YELLOW; URINE GLUCOSE-RANDOM* NEGATIVE (Negative); URINE KETONES NEGATIVE (Negative); URINE LEUKOCYTES NEGATIVE (Negative); URINE NITRITE NEGATIVE (Negative); URINE PROTEIN (DIPSTICK) TRACE (Negative); URINE UROBILINOGEN 0.2 E.U./dl (0.2-1.0)
[2018-07-20 21:08] LABS: CASTS None Seen /LPF (None Seen); CRYSTALS None Seen /LPF (None Seen); SQUAMOUS 0-3 Few /LPF (0-3)
[2018-07-20 21:09] LABS: BACTERIA 1-9 Few /HPF (None Seen); URINE RBC 0-2 Rare /HPF (0-2); URINE WBC None Seen /HPF (0-5)
[2018-07-20 21:47] LABS: ABSOLUTE NEUTROPHILS 4.7 thou/uL (1.4-8.2); BASOPHILS 0.9 % (0.0-2.0); EOSINOPHILS 0.3 % (0.0-3.0); HEMATOCRIT 42.2 % (37.0-47.0); HEMOGLOBIN 14.3 gm/dL (12.0-15.0); MCH 25.3 pg (26.0-34.0); MCHC 33.9 g/dL (28.0-37.0); MCV 74.7 fL (80.0-100.0); MONOCYTES 10.6 % (1.0-8.0); PLATELET COUNT 290 thou/uL (150-400); POLYS 66.2 % (36.0-66.0); RBC 5.65 mil/uL (4.20-5.00); RDW 14.6 % (10.5-14.5); WBC 7.1 thou/uL (4.0-11.0)
[2018-07-20 21:56] LABS: PROTIME 10.3 Seconds (9.3-11.4)
[2018-07-20 21:57] LABS: BUN 23 mg/dL (7-18); CALCIUM 10.5 mg/dL (8.5-10.1); CHLORIDE 81 mmol/L (98-107); CREATININE 1.9 mg/dL (0.6-1.0); GLUCOSE 129 mg/dL (74-106)
[2018-07-20 22:04] LABS: ANION GAP 7 mmol/L (7-16); CO2 31 mmol/L (21-32); LIPASE 134 U/L (73-393); SGOT 29 U/L (15-37); SGPT 25 U/L (30-65); TOTAL BILIRUBIN 2.2 mg/dL (<0.1-1.0); TOTAL PROTEIN 7.9 g/dL (6.4-8.2); TROPONIN-I <0.06 ng/mL (<0.06)
[2018-07-20 22:07] LABS: POTASSIUM 2.5 mmol/L (3.5-5.1); SODIUM 119 mmol/L (136-145)
[2018-07-20 23:30] VITALS: BP 116/51
[2018-07-20 23:40] VITALS: BP 116/51
[2018-07-21 00:25] VITALS: BP 126/57
[2018-07-21] MEDS ORDERED: AVAPRO300 MG PO (00:55)
[2018-07-21] MEDS ORDERED: AMLODIPINE BESY10 MG PO (00:56)
[2018-07-21] MEDS ORDERED: HYDROCHLOROTHIA25 M2 PO (00:57)
[2018-07-21 03:20] VITALS: BP 119/59
[2018-07-21 06:11] LABS: CALCIUM 9.4 mg/dL (8.5-10.1); CREATININE 1.6 mg/dL (0.6-1.0); POTASSIUM 3.4 mmol/L (3.5-5.1)
[2018-07-21 06:22] LABS: DIRECT BILIRUBIN 0.3 mg/dL (<0.1-0.3); TOTAL BILIRUBIN 1.8 mg/dL (<0.1-1.0)
[2018-07-21 08:00] VITALS: BP 100/56
[2018-07-21 15:45] VITALS: BP 104/47
[2018-07-21 20:30] VITALS: BP 108/51
[2018-07-22 03:30] VITALS: BP 104/53
[2018-07-22 07:39] VITALS: BP 118/71
[2018-07-22 07:48] LABS: CALCIUM 9.9 mg/dL (8.5-10.1); CREATININE 1.5 mg/dL (0.6-1.0); POTASSIUM 3.7 mmol/L (3.5-5.1)
[2018-07-22 16:26] VITALS: BP 127/56
[2018-07-22 19:40] VITALS: BP 107/50
[2018-07-23 04:50] VITALS: BP 101/48
[2018-07-23 05:55] LABS: HEMATOCRIT 33.6 % (37.0-47.0); MCH 24.8 pg (26.0-34.0); MCHC 32.6 g/dL (28.0-37.0); MCV 76.2 fL (80.0-100.0); RBC 4.41 mil/uL (4.20-5.00); RDW 15.1 % (10.5-14.5); WBC 5.5 thou/uL (4.0-11.0)
[2018-07-23 05:57] LABS: HEMOGLOBIN 10.9 gm/dL (12.0-15.0)
[2018-07-23 06:15] LABS: CALCIUM 9.2 mg/dL (8.5-10.1); CREATININE 1.4 mg/dL (0.6-1.0); POTASSIUM 3.5 mmol/L (3.5-5.1); TOTAL BILIRUBIN 0.9 mg/dL (<0.1-1.0)
[2018-07-23 07:29] VITALS: BP 106/60
[2018-07-23 15:13] VITALS: BP 100/40
[2018-07-23] MEDS ORDERED: CARAFATE 1 GM TA1 G1 PO (15:37)
[2018-07-23 15:58] VITALS: BP 100/40
== END 2018-07-23 16:31 | disposition home or self-care (01) | DRG 392 ==
LOC: ER 19:59 → 3W 23:06 → EROBS 23:06 → 3W 07-21 00:12
PROVIDERS: Internal Medicine; Internal Medicine Gastroenterology; Physician Assistant
PROC: 0DB68ZX Excision of Stomach, Via Natural or Artificial Opening Endoscopic, Diagnostic (ICD-10-PCS; principal; 2018-07-21)
DX: K29.00 Acute gastritis without bleeding (principal); E87.1 Hypo-osmolality and hyponatremia; N17.9 Acute kidney failure, unspecified; E78.00 Pure hypercholesterolemia, unspecified; M10.9 Gout, unspecified; K57.90 Diverticulosis of intestine, part unspecified, without perforation or abscess without bleeding; E87.6 Hypokalemia; E78.5 Hyperlipidemia, unspecified; E80.4 Gilbert syndrome; E07.9 Disorder of thyroid, unspecified; K64.9 Unspecified hemorrhoids; E86.9 Volume depletion, unspecified; N18.3 Chronic kidney disease, stage 3 (moderate); K44.9 Diaphragmatic hernia without obstruction or gangrene; I12.9 Hypertensive chronic kidney disease with stage 1 through stage 4 chronic kidney disease, or unspecified chronic kidney disease; D17.79 Benign lipomatous neoplasm of other sites; K59.00 Constipation, unspecified; R91.1 Solitary pulmonary nodule; K76.0 Fatty (change of) liver, not elsewhere classified; E11.22 Type 2 diabetes mellitus with diabetic chronic kidney disease; M19.90 Unspecified osteoarthritis, unspecified site; Z88.8 Allergy status to other drugs, medicaments and biological substances; Z79.1 Long term (current) use of non-steroidal anti-inflammatories (NSAID); Z90.710 Acquired absence of both cervix and uterus; Z90.49 Acquired absence of other specified parts of digestive tract; Z90.722 Acquired absence of ovaries, bilateral; Z83.3 Family history of diabetes mellitus; Z79.899 Other long term (current) drug therapy
CPT/HCPCS: 10879; 62110; 62900; 70005

== ENCOUNTER 2020-03-17 10:42 | Inpatient (IN) | payer OTHER ==
[~2020-03-17] VITALS: Ht 165.1 cm; Wt 80.5 kg
--- NOTE | ~2020-03-17 | HC ---
[facility] [place] [address] CONSULTATION Name: RICH RIVREA Room #: 462-P ADM IN M.R.#: [id number] Admission: 03/17/20 Attend Phys: Alireza Grigsby MD Discharge: Date of : 31 Report #: [id number] THIS REPORT FOR: cc: Daniel Denny MD, Stanley P. MD Smithson, David G. MD ~ CC: Alireza Denny DATE OF SERVICE: 03/27/2020 HISTORY OF PRESENT ILLNESS: The patient is an 89-year-old -[place] female admitted with abdominal pain, nausea, vomiting, had acute renal insufficiency superimposed on chronic kidney disease. She was noted to have hypokalemia, hyponatremia and had marked rhabdomyolysis with a CPK greater than 20,000. She had some chest pain with elevated troponin. EKG did not show evidence of ischemia. Cardiology has been involved. Nuclear stress test showed no evidence of stress-induced ischemia or prior NC. She does have moderate to severe mitral regurgitation, which will be treated conservatively and she can follow up with Cardiology as an outpatient for management of the mitral regurgitation. She was seen by Cardiology. The patient has also been seen by DrBashir , Nephrology. She has needed hemodialysis for acute tubular necrosis, superimposed on chronic kidney disease. Creatinine did reach a high of 9.2. She is currently being monitored by Nephrology. The patient has significant proximal weakness with a considerable decline in her functional status. We are seeing her in rehabilitation medicine consultation. PAST MEDICAL HISTORY: Includes hypertension, gout, diverticulosis, GI bleed, chronic kidney disease, prior history of decreased potassium. Past medical history also significant for diabetes mellitus type 2, diet controlled. SOCIAL HISTORY: She lives in a house, single story with retired son, did not utilize gait aids, although she had a walker at home. REVIEW OF SYSTEMS: No current complaints of chest pain, shortness of breath or abdominal discomfort. She was not on O2 premorbidly. PHYSICAL EXAMINATION: GENERAL: The patient is a pleasant 89-year-old -[place] female, appeared somewhat younger than stated age. VITAL SIGNS: Last recorded temperature 97.3, pulse 71, respirations 17, blood pressure 116/36. NEUROLOGIC: The patient is alert. She is pleasant, appears appropriate. HEENT: Appeared to be benign. Nasal prong O2 is intact on 2 liters. EXTREMITIES: She has functional range of motion of the upper extremities, proximal strength is probably a grade 3+ to 4- distally. She is a grade 4- and [address] [address] CONSULTATION Name: RICH RIVERA Room #: 462-P [facility] IN .R.#: [id number] Admission: 03/17/20 Attend Phys: Alireza Grigsby MD Discharge: Date of : 31 Report #: [id number] lower extremities, proximal strength is probably a grade 3+ to 4- distally. She is more of a 4-. No obvious focal sensory decrease. No calf swelling. Tone appeared to be intact. She is a max assist to try to come to standing and was able to stand on the 3rd attempt for about 30 seconds. Bed mobility has been max assist. She is very motivated. We have been working with her on some sitting balance and working on increasing tolerance. ASSESSMENT: An 89-year-old -[place] female with the following problem list: 1. Proximal myopathy. 2. Severe rhabdomyolysis. 3. Acute tubular necrosis. 4. Acute renal insufficiency superimposed on chronic kidney disease, has now been initially started on hemodialysis. 5. Newly diagnosed mitral regurgitation, moderate to severe. 6. Hypertension. 7. Prior medical history otherwise as noted above. She does have a history of diabetes mellitus type 2. PLAN: The patient is a candidate for an acute [address] [place] [address] inpatient rehabilitation stay. Can transfer when medically ready and a bed available. The patient appears amenable in this regard. Thank you for asking us to assist in this patient's care. By: 1209 1803 Gutierrez Hyman MD /GABY
[~2020-03-17 10:42] MED LIST changes: +CARAFATE 1 GM TA1 G1 PO; +HYDROCHLOROTHIA25 M2 PO
[2020-03-17 10:43] VITALS: BP 92/40
[2020-03-17 13:43] LABS: ABSOLUTE NEUTROPHILS 10.8 thou/uL (1.4-8.2); BASOPHILS 0.3 % (0.0-2.0); EOSINOPHILS 0.1 % (0.0-3.0); LYMPHOCYTES 3.5 % (24.0-44.0); MCH 24.9 pg (26.0-34.0); MCHC 32.3 g/dL (28.0-37.0); MONOCYTES 6.2 % (1.0-8.0); PLATELET COUNT 251 thou/uL (150-400); POLYS 89.9 % (36.0-66.0); RBC 4.42 mil/uL (4.20-5.00); RDW 15.8 % (10.5-14.5)
[2020-03-17 13:52] LABS: ALBUMIN 2.1 g/dL (3.4-5.0); CALCIUM 7.7 mg/dL (8.5-10.1); CREATININE 7.3 mg/dL (0.6-1.0); TOTAL BILIRUBIN 0.7 mg/dL (0.2-1.0); TOTAL PROTEIN 5.5 g/dL (6.4-8.2)
[2020-03-17 13:54] LABS: POTASSIUM 2.9 mmol/L (3.5-5.1)
[2020-03-17 15:46] LABS: URINE BLOOD 3+ (Negative); URINE CLARITY CLOUDY; URINE COLOR BROWN; URINE GLUCOSE-RANDOM* TRACE (Negative); URINE KETONES NEGATIVE (Negative); URINE LEUKOCYTES-REFLEX NEGATIVE (Negative); URINE PROTEIN (DIPSTICK) 3+ (Negative); URINE SPECIFIC GRAVITY 1.025 (1.005-1.035)
[2020-03-17 15:51] LABS: ICTOTEST (BILI CONFIRMATORY) Negative (Negative); URINE BILIRUBIN NEGATIVE (Negative); URINE NITRITE-REFLEX POSITIVE (Negative)
[2020-03-17 15:53] LABS: CASTS None Seen /LPF (None Seen); SQUAMOUS >10 Many /LPF (0-3); URINE WBC-REFLEX 0-5 Rare /HPF (0-5)
[2020-03-17 15:54] LABS: AMORPHOUS URATES Moderate /LPF (None Seen); BACTERIA-REFLEX 1-9 Few /HPF (None Seen); URINE RBC 0-2 Rare /HPF (0-2)
[2020-03-17 16:39] VITALS: BP 91/40
[2020-03-17 16:56] VITALS: BP 89/42
[2020-03-17 17:10] VITALS: BP 96/52
[2020-03-17 17:46] LABS: ABSOLUTE RETIC COUNT 0.0584 10^6/uL; HEMATOCRIT 36.5 % (37.0-47.0); HEMOGLOBIN 11.7 gm/dL (12.0-15.0); MCH 24.9 pg (26.0-34.0); MCHC 31.9 g/dL (28.0-37.0); MCV 77.9 fL (80.0-100.0); OBSERVED RETIC COUNT 1.24 % (0.6-2.6); RBC 4.69 mil/uL (4.20-5.00); RDW 16.3 % (10.5-14.5); WBC 11.8 thou/uL (4.0-11.0)
[2020-03-17 17:55] LABS: CALCIUM 7.7 mg/dL (8.5-10.1); CREATININE 7.1 mg/dL (0.6-1.0); POTASSIUM 3.3 mmol/L (3.5-5.1)
[2020-03-17 17:59] LABS: % SATURATION 9 % (20-39); IRON 15 ug/dL (50-170); TIBC 173 ug/dL (250-450)
[2020-03-17 20:22] LABS: CALCIUM 7.5 mg/dL (8.5-10.1); CREATININE 7.2 mg/dL (0.6-1.0); MAGNESIUM 2.3 mg/dL (1.8-2.4); POTASSIUM 3.3 mmol/L (3.5-5.1)
--- NOTE | 2020-03-17 20:58 | NUR ---
ASSUMMED PT CARE AT APPROXIMATELY 1710. PT A&O X4. ASSESSMENT CHARTED. FALL PRECAUTIONS IN PLACE. PT DENIES HAVING CHEST PAIN. PT DENIES HAVING ACUTE PAIN. PT DENIES HAVING SOB. PT STATED HE HAD MINIMAL NAUSEA AND DENIED WANTING ANTIEMETIC. VITAL SIGNS STABLE. EDUCATED PT ABOUT POC. PT STATED UNDERSTANDING AND DENIED HAVING FURTHER CONCERNS. PT COMFORTABLE IN BED. ADMISSION COMPLETE.
[2020-03-18] VITALS: BP 108/37
--- NOTE | 2020-03-18 00:27 | NUR ---
PATIENT C/O CHEST PAIN / IN CENTER CHEST, NO RADIATION AT 2150, BP 96/40. GAVE ONE NITRO WITH PAIN RESOLUTION. EKG DONE, SPOKE WITH DR. PEREZ WHO ORDERED TROPONIN. RESULT CAME BACK CRITICAL AT 0.86 DR. LLANES CAME TO UNIT TO REVIEW CHART AND WRITE ORDERS. CARDIOLOGY WAS CONSULTED.
[2020-03-18 01:06] LABS: GLYCOHEMOGLOBIN (HGB A1C) 6.1 % (4.8-5.6)
[2020-03-18 04:25] VITALS: BP 99/52
--- NOTE | 2020-03-18 05:36 | NUR ---
ASSESSMENTS CHARTED, MEDS GIVEN CHARTED. RAPID CALLED AT START OF SHIFT, SEE RAPID PROCEDURE. DENIES PAIN THE REMAINDER OF SHIFT. RECEIVING MAINTAINENCE FLUIDS. PATIENT HAS BEEN NPO SINCE MIDNIGHT FOR RENAL ULTRASOUND AND NOW ELEVATED TROPONIN. TREJO IN PLACE FOR ACCURATE I & O. FALL PRECAUTIONS IN PLACE DURING SHIFT.
[2020-03-18 05:39] LABS: CALCIUM 7.3 mg/dL (8.5-10.1); CREATININE 7.6 mg/dL (0.6-1.0); POTASSIUM 3.5 mmol/L (3.5-5.1)
--- NOTE | 2020-03-18 07:29 | EKG ---
[facility] [place] [facility] [place] [address] ELECTROCARDIOGRAM REPORT Name: RICH RIVERA Room #: 208-P ADM IN M.R.#: [id number] Admission: 03/17/20 Attend Phys: Alireza Grigsby MD Discharge: Date of : 31 Report #: [id number] THIS REPORT FOR: cc: Daniel Denny MD, Stanley P. MD Lundgren, Craig H. 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: AL : 1930 Requested By: Alireza Grigsby Order Number: [id number] MD: Van Paulson Measurements Intervals [place] Rate: 76 P: -42 KS: 181 QRS: 53 QRSD: 79 T: 183 QT: 377 QTc: 424 Interpretive Statements Sinus rhythm Probable LVH with secondary repol abnrm Compared to ECG 07/20/2018 20:58:54 First degree AV block no longer present Electronically Signed On 03-18-2020 7:28:54 CDT by Van Paulson [email or web address] <ELECTRONICALLY SIGNED> By: Van Paulson MD, [facility] 03/18/20 0728 04 04 Van Paulson MD, [facility] /EPI
[2020-03-18 08:20] VITALS: BP 115/67
[2020-03-18 12:05] VITALS: BP 113/45
--- NOTE | 2020-03-18 13:16 | 2DMMODE ---
[facility] [place] [address] 2 D/M-MODE ECHOCARDIOGRAM Name: RICH RIVERA Room #: 208-P ADM IN M.R.#: [id number] Admission: 03/17/20 Attend Phys: Alireza Grigsby MD Discharge: Date of : 31 Report #: [id number] THIS REPORT FOR: cc: Daniel Denny MD, Stanley P. MD Lammoglia, Francisco J. MD ~ APPROVED REPORT Study performed: 03/18/2020 12:17:59 EXAM: Comprehensive 2D, Doppler, and color-flow Echocardiogram Patient Location: Bedside Room #: 208 Status: routine BSA: 1.90 HR: 72 bpm BP: 115/67 mmHg Rhythm: NSR Other Information Study Quality: Adequate Indications Hypotension Dyspnea Chest Pain Hx: DM, HTN, ESRD. 2D Dimensions RVDd: 35.79 mm IVSd: 11.00 (7-11mm) LVOT Diam: 20.17 (18-24mm) LVDd: 42.81 mm PWd: 10.00 (7-11mm) Ascending Ao: 31.88 (22-36mm) LVDs: 24.73 (25-40mm) Aortic Root: 34.41 mm Volumes Left Atrial Volume (Systole) Single Plane 4CH: 51.92 mL Single Plane 2CH: 49.75 mL Aortic Valve AoV Peak Benigno.: 2.82 m/s AO Peak Gr.: 31.83 mmHg AO Mean Gr.: 14.43 mmHg [facility] [address] [place] [address] 2 D/M-MODE ECHOCARDIOGRAM Name: RICH RIVERA Room #: 208-P [facility] IN ..#: [id number] Admission: 03/17/20 Attend Phys: Alireza Grigsby MD Discharge: Date of : 31 Report #: [id number] AO V2 Mean: 1.77 m/s AO V2 VTI: 52.04 cm Mitral Valve E/A Ratio: 1.2 MV Decel. Time: 222.25 ms MV E Max Benigno.: 1.05 m/s MV A Benigno.: 0.91 m/s MV PHT: 64.45 ms IVRT: 55.36 ms Pulmonary Vein P Vein S: 0.67 m/s P Vein D: 0.34 m/s P Vein S/D Ratio: 1.97 Tricuspid Valve TR Peak Benigno.: 2.78 m/s RAP Estimate: 5.00 mmHg TR Peak Gr.: 31.00 mmHg PA Pressure: 36.00 mmHg Left Ventricle The left ventricle is normal size. Possible systolic anterior motion of the mitral valve is present causing a peak LVOT gradient of 133mmHg (mean of 58mmHg). There is normal LV segmental wall motion. Mild septal hypertrophy with moderatethickening of the proximal septum is present. Left ventricular systolic function is normal. LVEF is 60-65%. Moderate diastolic dysfunction is present. Right Ventricle The right ventricle is normal size. The right ventricular systolic function is normal. Atria Left atrium is dilated. The right atrium size is normal. Aortic Valve Aortic valve is thickened and calcified with adequate excursion. No aortic regurgitation is present. Mitral Valve Moderate mitral annular calcification. Probable systolic anterior motion of the mitral valve is present causing a peak LVOT gradient of 133mmHg (mean of 58mmHg). Severe mitral regurgitation. No evidence of mitral valve stenosis. [facility] [email or web address] [address] 2 D/M-MODE ECHOCARDIOGRAM Name: RICH RIVERA Room #: 208-P ADM IN M.R.#: [id number] Admission: 03/17/20 Attend Phys: Alireza Grigsby MD Discharge: Date of : 31 Report #: [id number] Tricuspid Valve The tricuspid valve is normal in structure. Mild tricuspid regurgitation. Estimated PAP is 35-40mmHg. Pulmonic Valve Pulmonic valve is not well visualized. Great Vessels The aortic root is normal in size. The ascending aorta is normal in size. IVC is normal in size and collapses >50% with inspiration. Pericardium There is no pericardial effusion. <Conclusion> The left ventricle is normal size. Mild septal hypertrophy mid and distally with moderate thickening of the proximal segment. LVEF is 60-65%. Left atrium is dilated. Aortic valve is thickened and calcified with adequate excursion. Moderate mitral annular calcification. Probable systolic anterior motion of the mitral valve is present causing a peak LVOT gradient of 133mmHg (mean of 58mmHg). Severe mitral regurgitation. The tricuspid valve is normal in structure. Mild tricuspid regurgitation. Estimated PAP is 35-40mmHg. Pulmonic valve is not well visualized. There is no pericardial effusion. <ELECTRONICALLY SIGNED> By: Alpesh Townsend MD 03/18/20 1315 14 14 Alpesh Townsend MD /INF
--- NOTE | 2020-03-18 15:41 | NUR ---
AAO. DENIES CP, N&V. NSR PER TELE. ECHO REVEALS LVEF 60-65%. ANURIC, CR 7.3. FALL PRECAUTIONS IN PLACE. WILL CONTINUE TO FOLLOW CLOSELY.
[2020-03-18 15:55] VITALS: BP 97/44
[2020-03-18 19:50] VITALS: BP 132/65; BP 132/665
--- NOTE | 2020-03-18 21:12 | H ---
[facility] [place] [address] HISTORY AND PHYSICAL Name: RICH RIVERA Room #: 359-P ADM IN M.R.#: [id number] Admission: 03/17/20 Attend Phys: Alireza Grigsby MD Discharge: Date of : 31 Report #: [id number] THIS REPORT FOR: cc: Daniel Denny MD, Stanley P. MD Angles, Mark A. MD ~ CC: Selina Denny MD DATE OF SERVICE: 03/17/2020 CHIEF COMPLAINT: Abdominal pain with nausea and vomiting. HISTORY OF PRESENT ILLNESS: The patient reports those symptoms for the last 2 days. She is an 89-year-old -[place] female who called me with these symptoms yesterday and I advised her to try clear liquids for 24 hours to see if that made a difference. She reports that she does feel somewhat better, but she still has the pain and decided to come to the Emergency Room for further evaluation and treatment. PAST MEDICAL HISTORY: Significant for multiple medical problems including hypertension, hyperlipidemia, gout, diverticulosis, GI bleed, chronic kidney disease and acute kidney injury due to nonsteroidal anti-inflammatory drugs and thiazide diuretics in the past. The patient also has a history of recurrent hypokalemia during many of her hospitalizations in the last 5 years. She also has a history of gastroesophageal reflux disease and a remote history of obesity. She has type 2 diabetes mellitus, diet controlled. FAMILY HISTORY: Not recorded. SOCIAL HISTORY: Shows she lives independently and has no vices. She does not use alcohol or tobacco products. She does have 2 sons. REVIEW OF SYSTEMS: CONSTITUTIONAL: The patient denies headaches or changes in vision or sense of smell or swallowing or sense of taste. NECK: She denies neck pain. CHEST: She denies chest pain. She denies shortness of breath different from her baseline. ABDDOMEN: Her abdominal discomfort is generalized and not present at this particular moment of my exam. EXTREMITIES: Without cyanosis or peripheral edema. She does have digital clubbing noted in her hands. BACK: The spine is nontender with slightly decreased mobility. [address] [address] HISTORY AND PHYSICAL Name: RICH RIVERA Room #: 359-P [facility] IN [facility].#: [id number] Admission: 03/17/20 Attend Phys: Alireza Grigsby MD Discharge: Date of : 31 Report #: [id number] NEUROLOGIC: Cranial nerves II-XII are intact. Craniocerebellar exam shows absence of Babinski sign. Romberg's was not tested. Gait was not tested. Otherwise, no focal deficits of motor function or sensation or deep tendon reflexes on gross exam. PHYSICAL EXAMINATION: VITAL SIGNS: In the Emergency Room showed a pulse of 92 with a blood pressure of 92/40, respiratory rate of 21 with an oxygen saturation of 98% on room air and a temperature of 36.8 degrees centigrade. Her reported weight was 184 pounds on arrival. Chest x-ray showed no acute cardiopulmonary disease. CT scan of the abdomen and pelvis without contrast was obtained due to the lab abnormalities. This showed a 1-cm noncalcified nodule in the right lung base, which is stable since 2018, "jackie mesentery" which is a nonspecific finding, but suggests underlying edema versus fibrosis, there was no evidence of bowel obstruction or fluid collections or abscess otherwise in the abdomen. Labs showed the following: Chemistry had a sodium 131, potassium 2.9, carbon dioxide of 19 with a chloride of 97, BUN of 57 and creatinine 7.3. The anion gap was 15, which is towards the upper limits of normal. The estimated GFR was 6. The nonfasting glucose was 135. Calcium was 7.7 with a total protein of 5.5 and albumin of 2.1. The total bilirubin is 0.7. The AST was markedly elevated at 998. The ALT was elevated also at 269. Alkaline phosphatase was normal at 73 and a lipase level was 304 and also normal. The CBC showed a white blood cell count that was slightly elevated at 12,000 with a differential done by machine that showed 89.9% segmented neutrophils, 3.5% lymphocytes, 6.2% monocytes, 0.1% eosinophils, and 0.3% basophils. The absolute neutrophil count was slightly elevated at 10.8. Urinalysis showed a cloudy brown urine with pH of 6.5 and a specific gravity of 1.025. Dipstick showed 3+ protein, 3+ blood, positive for nitrites, and negative for leukocyte esterase and bilirubin and ketones. I do not see the urine glucose measurement on this result. The microscopic exam was fairly benign with many squamous epithelial cells, moderate amorphous urates, trace glucose there is and 1-9 bacteria per high power field with no casts. Culture of the urine is ongoing. In the Emergency Room, the patient was given some lactated Ringer's solution and couple of liters of IV normal saline per Dr. Gerardo' conversation with Dr. Santiago from Nephrology. 1. Acute renal failure on chronic kidney disease. At this point, the patient is hypokalemic, but mildly acidotic and is dehydrated. I agree with Dr. Santiago's recommendations to gently hydrate the patient and work on improving her electrolytes. I have ordered an ultrasound and Doppler of the kidneys to see if there is any evidence of vascular disease or occult evidence for obstruction, which is not seen on CT. I will defer to Dr. Santiago's [facility] [address] [place] [address] HISTORY AND PHYSICAL Name: RICH RIVERA Room #: 359-P ADM IN M.R.#: [id number] Admission: 03/17/20 Attend Phys: Alireza Grigsby MD Discharge: Date of : 31 Report #: [id number] recommendations once he gets a chance to evaluate the patient for Chandan. 2. Hypotension - this is likely due to dehydration and should respond to gentle intravenous replacement therapy. 3. Metabolic acidosis, mild - we will change IV from normal saline to D5W with 100 mEq of sodium bicarbonate and give the patient a single oral dose of potassium chloride to try and help normalize her acidosis and hypokalemia. Reassess electrolytes at 8 this evening and again in the morning tomorrow. 4. Shortly after the admission process, I received a phone call from the patient's nurse that she was having chest pain and she had actually given the patient a single sublingual nitroglycerin and obtained an EKG. Her reading of the EKG suggested left ventricular hypertrophy with repolarization changes and in looking at the computer, the report from EKGs couple of years ago also suggested that and I will be returning to the unit tonight to compare her EKGs to see if in fact, there is any significant change. Also requested a troponin level. Given the patient's history of hypertension and type 2 diabetes and kidney disease, she is certainly at higher than average risk for coronary artery disease. As her blood pressure remains on the low side, I will continue gentle rehydration efforts but stop them if I see any signs of congestive heart failure developing. 5. Type 2 diabetes. We will do serial Accu-Cheks to make sure that she has adequate control and start a low intensity sliding scale if needed. 6. History of gout and osteoarthritis. The patient absolutely denied to me that she was using any nonsteroidal anti-inflammatories such as Aleve or Advil. At this point, she probably should not be getting any diclofenac gel either as there is a known history for hepatic side effects. If it has anything to do with her acute renal insufficiency, then I would expect improvement in her BUN and creatinine over the next few days. 7. Gastroesophageal reflux disease. Continue current medication. 8. Other medical problems as outlined above. I did discuss with the patient about the potential need for hemodialysis. Her father was a dialysis patient. She told me that she is not really interested in doing dialysis, but if the doctor recommends it to her, then she will proceed with it. I also told her I would forward information to Dr. Denny so he is aware of our plans. <ELECTRONICALLY SIGNED> By: Alireza Grigsby MD 03/18/202111 [id number] Alireza Grigsby MD /nt
--- NOTE | 2020-03-18 21:59 | NUR ---
PT ALERT AND ORIENTED. VSS AFEBRILE. HRR LCTA DIM BASES UNLABORED ON RA. NO C/O CHEST PAIN. NO S/S RESP DISTRESS PRESENTLY. BED ALARM ON. INSTRUCTEDPT ON FALL PRECAUTIONS. WILL CONTINUE TO MONITOR PT FOR CHANGES.
--- NOTE | 2020-03-19 02:43 | NUR ---
Pt c/o feeling nauseated. Zofran given sl. Hip pain down to a 3/10. will continue to monitor pt for changes.
[2020-03-19 04:09] VITALS: BP 108/54
--- NOTE | 2020-03-19 04:43 | NUR ---
PT PROGRESSING SLOWLY TOWARDS D/C GOALS. VSS AFEBRILE. UNLABORED ON RA. HRR. MURMUR NOTED. TREJO HAD 25 ML BLOOD TINGED URINE OUT. CCU NS THAT GAVE ME REPORT STATED DR BENDER IS AWARE SHE WAS ANURIC. [id number] INFUSING AT 80 ML/HR. TYLENOL STARTED FOR LEFT HIP PAIN TONIGHT ORDERED BY DR PEREZ WITH MODERATE RELIEF OBTAINED. ZOFRAN SL GIVEN FOR NAUSEA. NO EMESIS. PT WAS ABLE TO GET BACK TO SLEEP. WILL CONTINUE TO MONITOR PT FOR CHANGES.
[2020-03-19 05:48] LABS: ALBUMIN 1.7 g/dL (3.4-5.0); CALCIUM 7.1 mg/dL (8.5-10.1); CREATININE 8.5 mg/dL (0.6-1.0); POTASSIUM 3.1 mmol/L (3.5-5.1)
[2020-03-19 05:49] LABS: TROPONIN-I 0.95 ng/mL (<0.06)
--- NOTE | 2020-03-19 06:02 | NUR ---
NOTIFIED DR MORIN REGARDING CRITICAL TROP.95, K 3.1, BLOOD TINGED URINE 25 ML TOTAL FOR 12 HR SHIFT, BUN AND CR FOR 03/19. HE STATED TO CONTINUE D5W 100 MEQ NAHCO3. NO ORDERS FOR POTASSIUM REPLACEMENT. DR ARMANDO TO ADDRESS K AND POSSIBLE NEED FOR DIALYSIS UPON ROUNDS TODAY.
--- NOTE | 2020-03-19 07:33 | NUR ---
NOTIFIED DR ARMANDO OF PTS K 3.1, BUN69 CR 8.5, TROP .95, UO 25 ML, AND BLOOD TINGED URINE IN TREJO. IV FLUIDS DC'D ORDERED. DR ARMANDO STATED HE WOULD REVIEW ALL HER LABS AND SPOKE WITH PT BRIEFLY ABOUT DIALYSIS.
[2020-03-19 08:00] VITALS: BP 119/56
[2020-03-19 08:56] LABS: INR 1.1; PROTIME 10.9 Seconds (9.3-11.4)
[2020-03-19 13:00] VITALS: BP 126/52
[2020-03-19 13:18] VITALS: BP 118/50
--- NOTE | 2020-03-19 14:19 | NUR ---
INITIAL ASSESSMENT: SW reviewed chart and spoke with nursing and attending physician. Pt was admitted from home due to hypokalemia/ARF. Pt had temporary dialysis catheter placed earlier today. Pt also had liver bx and will have stress test tomorrow. SW spoke with pt via phone. Introduced role of SW. Pt is alert/orientated. Pt reports she lives at home with her son. Prior to admission, pt was independent with ADLs. Pt states she has a walker. No steps that she needs to navigate. No hx of services or post-acute placement. Pt's PCP is Dr. Daniel Denny. SW discussed possible need for outpatient dialysis upon discharge. Pt verbalized understanding. SW is following to assist as needed with discharge planning.
--- NOTE | 2020-03-19 14:23 | NUR ---
1300 PT BACK FROM DIALYSIS CATHETER INSERTION AND RENAL BIOPSY. BOTH SITES CLEAN, DRY AND INTACT. VITAL SIGNS AND ASSESSMENT COMPLETED. WILL CONTINUE TO MONITOR BOTH SITES.
--- NOTE | 2020-03-19 14:30 | NUR ---
PT CARE ASSUMED AT 0700, PT IS ALERT AND OREINTED X4, FORGETFUL AT TIMES. PT DENIES ANY CHEST PAIN, NAUSEA AND VOMITING. PT IS ON ROOM AIR, NO SIGNS OF DISTRESS NOTED. MURMUR NOTED UPON AUSCULTAION OF HEART, MD AWARE. PT HAS A TREJO, BROWN/DARK IN COLOR MD AWARE. TREJO PATENT AND SECURED. CALL LIGHT AND TABLE IN REACH. BED AT LOWEST LEVEL WITH ALARM ON. WILL CONTINUE TO MONITOR.
[2020-03-19 16:15] VITALS: BP 140/64
[2020-03-19 19:09] VITALS: BP 114/50
[2020-03-19 22:06] LABS: COMPLEMENT-C3 128 mg/dL (82-167); COMPLEMENT-C4 26 mg/dL (14-44); IgA 169 mg/dL (64-422); IgG 553 mg/dL (586-1602); IgM 38 mg/dL (26-217)
--- NOTE | 2020-03-20 02:10 | NUR ---
PT ALERT AND ORIENTED X3 . VSS AFEBRILE. LUNGS DIMINSHED BUT UNLABORED ON RA. ABD SIS SOFT NONTENDER. PT FEELS LIKE SHE NEEDS TO HAVE A BM BUT HAS ONLY PASSED GAS SO FAR. NPO AFTER MN FOR NUCLEAR STRESS TEST. FOLET TO DD DRAINING SMALL AMTS OF BLOOD TINGED URINE. DIALYSIS CATHETER IS INTACT TO RIGHT SC. SCHEDULED TYLENOL CONTROLLING LEFT HIP PAIN. DENIED CHEST PAIN. PT HAS BEEN COMPLIANT WITH FALL PRECAUTIONS. TURNING P Q 2 HRS. NO S/S DISTRESS. WILL CONTUNUE TO MONITOR PT FOR CHANGES.
[2020-03-20 03:21] VITALS: BP 128/62
--- NOTE | 2020-03-20 05:40 | NUR ---
pt resting quietly.no s/s distress.Pt NPO for nuclear stress test.
[2020-03-20 05:48] LABS: ABSOLUTE NEUTROPHILS 10.9 thou/uL (1.4-8.2); BASOPHILS 0.2 % (0.0-2.0); EOSINOPHILS 0.1 % (0.0-3.0); HEMATOCRIT 34.8 % (37.0-47.0); HEMOGLOBIN 11.2 gm/dL (12.0-15.0); LYMPHOCYTES 4.8 % (24.0-44.0); MCH 24.6 pg (26.0-34.0); MCHC 32.3 g/dL (28.0-37.0); MONOCYTES 4.5 % (1.0-8.0); PLATELET COUNT 275 thou/uL (150-400); POLYS 90.4 % (36.0-66.0); RBC 4.58 mil/uL (4.20-5.00); RDW 15.9 % (10.5-14.5)
[2020-03-20 06:01] LABS: ALBUMIN 1.7 g/dL (3.4-5.0); CALCIUM 7.6 mg/dL (8.5-10.1); CREATININE 9.2 mg/dL (0.6-1.0); PHOSPHORUS 6.4 mg/dL (2.5-4.9)
[2020-03-20 06:22] LABS: INR 1.1
--- NOTE | 2020-03-20 07:56 | NUR ---
BS 67 THIS AM AT 701 AM . IV APPEARED TO BE INFILTRATED. STARTED IV LEFT WRIST DEXTROSE 25 GM GIVEN IV. BS INCREASED TO 152 AT 0756. PT ASYMPTOMATIC AT TIME. PT NPO FOR PROCEDURE.
[2020-03-20 08:04] VITALS: BP 120/55
[2020-03-20 11:32] VITALS: BP 107/52
--- NOTE | 2020-03-20 12:07 | NUR ---
SW reviewed chart and spoke with nursing. Pt to have stress test today and starting dialysis today. Pt will also have dialysis tomorrow. REMI is following to assist as needed with discharge planning.
[2020-03-20 15:08] LABS: KAPPA FREE LIGHT CHAINS 107.2 mg/L (3.3-19.4); KAPPA/LAMBDA RATIO 2.37 (0.26-1.65); LAMBDA FREE LIGHT CHAINS 45.2 mg/L (5.7-26.3)
--- NOTE | 2020-03-20 18:26 | NUR ---
ASSUMED PATIENT CARE AT 0700. A/O X4. HAD HD TODAY. 500ML FLUID MOVED. GENERLIZED WEAKNESS. SLOWLY TOWARDS POC GOALS.
[2020-03-20 19:40] VITALS: BP 109/58
[2020-03-20 23:33] VITALS: BP 112/50
--- NOTE | 2020-03-21 00:35 | NUR ---
PT IS ALERT X PERSON AND PLACE. FORGETFUL TO TIME AND DATE. CONFUSED AT TIMES. HRR LUNGS CLEAR BUT DIMINISHED AT BASES. UNLABORED ON RA. TYLENOL SCHEDUED GIVEN FOR LEFT HIP PAIN WITH ADEQUATE RELIEF OBTAINED. PT RESTING QUIETLY. BED ALARM ON BED DOWN IN LOW LOCKED POSITION. CHECKING IN ON PT FREQUENTLY. WILL CONTINUE TO MONITOR PT FOR CHANGES. DIALYSIS CATHETER IS CLEAN DRY AND INTACT. TREJO WITH VERY LITTLE UO NOTED.
[2020-03-21 04:11] VITALS: BP 104/51
--- NOTE | 2020-03-21 05:02 | NUR ---
VSS AFEBRILE. PROGRESSING SLOWY TOWARDS D/C GOALS. DIALYSIS CATHETER REMAINS INTACT R NECK. TREJO WITH 25 ML OUTPUT. NO BM TONIGHT. WILL ASK AM TO GET MORE LAXATIVES ORDERED. MIRALAX GIVEN ON DAY SHIFT HAS NOT WORKED YET. BED DOWN. CALL LIGHT IN REACH. BED ALARM IS ON. PT SLEEPING PRESENTLY.
[2020-03-21 05:39] LABS: ALBUMIN 1.7 g/dL (3.4-5.0); ANION GAP 12 mmol/L (7-16); BUN 55 mg/dL (7-18); CALCIUM 8.1 mg/dL (8.5-10.1); CHLORIDE 91 mmol/L (98-107); CO2 24 mmol/L (21-32); GLUCOSE 85 mg/dL (74-106); PHOSPHORUS 4.6 mg/dL (2.5-4.9); SODIUM 127 mmol/L (136-145)
[2020-03-21 05:42] LABS: CREATININE 7.1 mg/dL (0.6-1.0)
--- NOTE | 2020-03-21 06:15 | NUR ---
SPOKE WITH DR EAST THIS AM. HE REQUESTED I CALL PT'S PHARMACY AND RECONICILE HER MEDICATIONS. PHARMACY IS CLOSED UNTIL 1000 AM. LEFT MESSAGE AT THE PHARMACY TO CALL DAYSHIFT NURSE AFTER 1000AM WHEN THEY OPEN UP TO RECONCILE MEDS FOR DR ESCUDERO.
[2020-03-21 07:54] VITALS: BP 108/45
[2020-03-21 09:08] LABS: HEP B SURFACE Ab(ANTI-HBS Non Reactive (()); HEPATITIS B SURFACE AG Negative (Negative)
[2020-03-21 13:08] LABS: GLOMERULR BASEM MEMBRN AB 3 units (0-20)
[2020-03-21 14:07] LABS: GLOBULIN TOTAL 2.7 g/dL (2.2-3.9); M-SPIKE Not Observed g/dL (Not Observed)
--- NOTE | 2020-03-21 14:54 | NUR ---
REMI reviewed chart and spoke with nursing. Pt had dialysis today and bx is pending. SW attempted to meet with pt at bedside. Pt receiving nursing care. SW to follow up with pt at a later time. SW contacted neprologist to determine if pt will need outpatient dialysis in place at time of discharge. REMI is following to assist as needed with discharge planning.
[2020-03-21 16:51] VITALS: BP 109/44
--- NOTE | 2020-03-21 17:00 | NUR ---
ASSUMED CARE APPROX 0700. PT ALERT AND ORIENTED X4. ASSESSMENT CHARTED AND VSS. PT HAD DIALYSIS THIS AM WITH NO COMPLICATIONS. DIALYSIS NURSE REPORTED THAT SHE HAD LOW BP BUT RECOVERED W/ FLUIDS. VS WNL THIS SHIFT. PT HAD LARGE BM THIS SHIFT AND REPORTED RELIEF. PT DENIES ACUTE PAIN OUTSIDE OF ARTHRITIC PAIN IN LT HIP. PT ON ROOM AIR. PT DENIES SHORTNESS OF BREATH OR DYSPNEA THIS SHIFT. PT RESTING COMFORTABLY IN BED. WILL CONTINUE TO MONITOR.
[2020-03-21] MEDS ORDERED: CRESTOR40 MG PO (20:03)
[2020-03-21] MEDS ORDERED: TORSEMIDE10 MG PO (20:04)
[2020-03-21] MEDS ORDERED: AVAPRO300 MG PO (20:05)
[2020-03-21 20:45] VITALS: BP 133/54
--- NOTE | 2020-03-22 04:35 | NUR ---
PATIENT IS ADVANCING SLOWLY IN HER CARE PLAN. VITAL SIGNS STABLE WITH PATIENT HAVING NO COMPLAINTS OF PAIN OR NAUSEA. MOSTLY ORIENTED, PATIENT IS ABLE TO RELAY NEEDS APPROPRIATELY. UP WITH ASSISTANCE INCIDENT FREE, PATIENT IS CONSIDERED A HIGH FALL RISK. CONTINUE PLAN OF CARE.
[2020-03-22 04:40] VITALS: BP 130/52
[2020-03-22 06:43] LABS: CALCIUM 8.3 mg/dL (8.5-10.1); POTASSIUM 4.3 mmol/L (3.5-5.1)
[2020-03-22 06:47] LABS: ALBUMIN 1.5 g/dL (3.4-5.0); PHOSPHORUS 3.3 mg/dL (2.5-4.9)
[2020-03-22 06:50] LABS: CREATININE 5.5 mg/dL (0.6-1.0)
[2020-03-22 07:58] VITALS: BP 130/44
--- NOTE | 2020-03-22 14:11 | NUR ---
SW reviewed chart and spoke with nursing. Pt did not have dialysis today. SW met with pt at bedside. Pt states her goal is to return home when medically stable. SW is following to assist as needed with discharge planning.
--- NOTE | 2020-03-22 15:17 | HC ---
[facility] [place] [address] CONSULTATION Name: RICH RIVERA Room #: 359-P ADM IN M.R.#: [id number] Admission: 03/17/20 Attend Phys: Alireza Grigsby MD Discharge: Date of : 31 Report #: [id number] THIS REPORT FOR: cc: Daniel Denny MD, Stanley P. MD Al-Absi, Ahmed I. MD ~ CC: Alireza Denny REASON FOR CONSULTATION: Elevated creatinine, acute kidney injury. REASON FOR PRESENTATION: Nausea, vomiting and diarrhea. HISTORY OF PRESENT ILLNESS: This is an 89-year-old with history of hypertension, chronic kidney disease, gastroesophageal reflux disease. She presented to the Emergency Room reporting that she has been having major issues with nausea, vomiting, diarrhea over the last few days. She was found to have an acute kidney injury with a creatinine value of 7.3 associated with hypokalemia and a potassium value of 2.9. She has mild metabolic acidosis and was admitted to further evaluate. We had seen this patient back in 2018 and she had major issues with an acute kidney injury, thought to be due to nonsteroidal anti-inflammatory medications. At that time, her creatinine has improved and she attained a value of around 1.5 upon discharge. There are no other focal symptoms in her history of present illness to explain the rapid deterioration in her kidney function. PAST MEDICAL HISTORY: 1. Hypertension. 2. Goiter. 3. Hyperuricemia. 4. ____. ALLERGIES: NAPROXEN. REVIEW OF SYSTEMS: GENERAL: Weak, nausea and vomiting. CARDIOVASCULAR: No chest pain or palpitation. PULMONARY: No cough or hemoptysis. GASTROINTESTINAL: As per the history of present illness. GENITOURINARY: No frequency, no urgency. NEUROLOGICAL: Significant for dizziness and lightheadedness MEDICATIONS: 1. Amlodipine. 2. Pantoprazole. 3. Diclofenac sodium. [facility] [address] [place] [address] CONSULTATION Name: RICH RIVERA Room #: 359-P [facility] IN [facility]#: [id number] Admission: 03/17/20 Attend Phys: Alireza Grigsby MD Discharge: Date of : 31 Report #: [id number] FAMILY HISTORY: Significant for hypertension. PHYSICAL EXAMINATION: GENERAL: The patient is alert, awake. VITAL SIGNS: Blood pressure is 99/52. Temperature 37.6, pulse rate is 84, respiratory rate is 20. HEAD AND NECK: No jugular venous distention. CHEST: No crackles. CARDIOVASCULAR: No rub detected. ABDOMEN: Soft. EXTREMITIES: Lower extremities, no edema. LABORATORY VALUES: Revealed a sodium value of 132, potassium 3.5, chloride 96, carbon dioxide 19, BUN 60, creatinine 7.6. UA with +3 protein. CBC, white blood cell count 11.8. hemoglobin 11.7. No eosinophilia. DIAGNOSTIC DATA: Chest x-ray: No acute process. Abdomen CT, no evidence of hydronephrosis. ASSESSMENT AND IMPRESSION: 1. Severe acute kidney injury. 2. Hypokalemia on presentation. 3. Metabolic acidosis. 4. Hyponatremia. PLAN: 1. This is a rather severe acute kidney injury with really no focal findings other than a GI illness. 2. Continue with the IV fluid for now. 3. Continue to watch electrolytes. 4. Continue to watch urine output. 5. No blood pressure medication at this point. 6. Workup for her acute kidney injury including serology marker. 7. No dialysis is indicated, but if the patient's creatinine is not improving, we will discuss with her the potential need for dialysis. 8. Mildly elevated troponin as per the primary team. 9. Leukocytosis investigations as per the primary team. <ELECTRONICALLY SIGNED> By: Selina Santiago MD 03/22/20 1517 [id number] Selina Santiago MD /nt
[2020-03-22 15:18] VITALS: BP 144/57
--- NOTE | 2020-03-22 17:07 | PATH ---
[facility] [address] [place] [address] PATHOLOGY RPT PROCEDURE Name: RICH DOWLING Room #: 359-P ADM IN M.R.#: [id number] Admission: 03/17/20 Date of : 32 Discharge: Report #: [id number] Path Case #: [id number] [facility] Accession Number: [id number] . 01 Material submitted: . kidney - RIGHT RENAL BX. Modifiers: right . 02 Diagnosis: Special studies report received from [facility], [address] [place] [address], [place] [address], on case [id number], labeled with their number [id number], dated 03/20/2020. . Specimen submitted: By Selina Santiago MD For Kidney, biopsy . DIAGNOSIS: . Acute Tubular Injury with Frequent Myoglobin-Positive Casts, Consistent with Rhabdomyolysis. . Chronicity Summary Total Glomeruli- 36 Global Glomerulosclerosis- 6 Segmental Sclerosis- Absent Interstitial Fibrosis- Minimal Tubular Atrophy- Minimal Arterial Intimal Fibrosis- Mild Arteriolar Hyalinosis- Absent . Clinical History: The patient is an 89-year-old woman with acute on chronic kidney injury. She has a history of hypertension. She reports recent nausea, vomiting, and diarrhea. Serum creatinine is 7.3. . Gross Description: Received from [facility] via [facility] are two specimen bottles; one bottle contains formalin and the other contains Bob's fixative. The bottles are labeled with the patient's name (Rich Dowling) and date of (1930). . Received in formalin are eight pieces of nunez tissue measuring 1.2 x 0.1 x 0.1 cm, 0.8 x 0.1 x 0.1 cm, and six at 0.1 x 0.1 x 0.1 cm. Two pieces are submitted for electron microscopy and the remainder of the tissue is submitted in its entirety for light microscopy. . Received in Bob's fixative is one piece of nunez tissue with stringy middle measuring 2.5 x 0.1 x 0.1 cm. The specimen is submitted in its [facility] [address] [place] [address] PATHOLOGY RPT PROCEDURE Name: RICH DOWLING Room #: 359-P ADM IN M.R.#: [id number] Admission: 03/17/20 Date of : 31 Discharge: Report #: [id number] Path Case #: [id number] entirety for immunofluorescence microscopy. . Microscopic Description: . LIGHT MICROSCOPY: . Multiple cores of renal parenchyma are present for evaluation represented by approximately 60% cortex. Separate fragments of fibroadipose tissue, skeletal muscle, and skin are also present. Up to 17 glomeruli are present with two globally sclerotic. The glomeruli are of normal size and cellularity and show frequent ischemic wrinkling and retraction of the tuft. There is no segmental sclerosis, fibrinoid necrosis, or crescent formation. The glomerular basemen membranes are without holes, spikes, or double contours on silver stain. There is diffuse interstitial edema and a focal mild interstitial mononuclear inflammatory infiltrate present within the corticomedullary junction. There is minimal background interstitial fibrosis and tubular atrophy. The tubular epithelium shows marked simplification with attenuation of brush borders and reactive nuclear changes. The tubular lumens show frequent globular to stringy eosinophilic casts, many of which are fuchsinophilic on trichrome stain. Immunoperoxidase staining for myoglobin is performed and shows frequent positive staining within the tubular casts as well as the tubular epithelium itself. There is no tubulitis. There is no significant arteriolar hyalinosis. Arteries show focal mild intimal fibrosis. There is no arteritis present. A Congo red stain for amyloid is negative. Toluidine blue-stained sections show two glomeruli with none globally sclerotic. . Standard of care requirements for proper analysis of renal biopsies mandates serial sections, and PAS, Gonzalez silver, trichrome and SMMT stains at multiple levels. PAS stains are used to evaluate various aspects of the glomerular, tubular, and vascular basement membranes. Gonzalez silver stains are used to evaluate thickening, reduplication, "spiking" or "bubbling" of the glomerular basement membrane. Toluidine blue stained sections highlight glomerular basement membranes and demonstrates unusual types of deposits. It also reveals details of tubular epithelial cells and aids in the analysis of vascular lesions. Marielena trichrome stains are used to evaluate interstitial fibrosis and basement membrane deposits. The SMMT stain helps evaluate basement membrane changes, immune deposits and tubulointerstitial scarring. Controls are routinely run on all special stains and are verified for acceptability. A review of the technical quality of routine slides is made before results are reported. . IMMUNOFLUORESCENCE: The sections are stained for IgG, IgM, IgA, C3, C1q, albumin, fibrinogen, and kappa and lambda light chains. The tissue consists entirely of renal medulla and soft tissue. No glomeruli are present for evaluation. There is no significant staining within the medulla. [place] and lambda stain [address] [address] PATHOLOGY RPT PROCEDURE Name: RICH DOWLING Room #: 359-P ADM IN M.R.#: [id number] Admission: 03/17/20 Date of : 31 Discharge: Report #: [id number] Path Case #: [id number] equally throughout the tubulointerstitium. . Positive and negative controls are run on all immunofluorescent stains and are verified for acceptability before results are reported. Internal antigens serve as positive controls. . ELECTRON MICROSCOPY: Two blocks are prepared. Ultrastructural evaluation of a glomerulus reveals basement membranes that are variably thickened with mild ischemic retraction. Glomerular capillary loops are patent. No immune-type electron-dense deposits are present along the glomerular basement membranes or within the mesangium. There is mild to moderate epithelial foot process effacement. The tubular basement membranes are without deposits. . Special procedures including immunofluorescence and electron microscopy correlate with the light microscopy findings. . Note: Some of the tests reported here may have been developed and performance characteristics determined by [facility]. They have not been cleared or approved by the U.S. Food and Drug Administration (FDA). The FDA does not require this test to go through premarket FDA review. This test is used for clinical purposes. It should not be regarded as investigational or for research. [facility] is certified under the Clinical Laboratory Improvement Amendments of 1988 (CLIA) as qualified to perform high complexity clinical laboratory testing. . Physician/Physician's office called on 03/20/2020 at 4:19 PM Central. . *I have reviewed the clinical history, the pertinent gross findings, all microscopic materials, discussed the case with the clinician when appropriate, and have rendered the final diagnosis. . . Final Diagnosis performed by Elaine Francois M.D. Electronically signed 03/20/2020 5:41:12 PM . . A complete copy of the report is on file. . Professional and technical services performed by [facility] at [address] [place] [address], [facility] [place]. . (IUV:amj 03/21/2020) . AZJ 03/21/[address] [address] PATHOLOGY RPT PROCEDURE Name: RICH DOWLING Room #: 359-P ADM IN M.R.#: [id number] Admission: 03/17/20 Date of : 31 Discharge: Report #: [id number] Path Case #: [id number] . 02 Electronically signed: . Luann Paez MD, Pathologist NPI- [id number] . 01 Gross description: . The specimen is received in formalin, labeled "Rich Dowling, right renal BX". Received are multiple needle cores and their fragments of nunez tissue which are forwarded to an outside laboratory for further processing. . Also received is a container of Bob's fixative, labeled "Josey, Rich, right renal BX". Received are multiple needle cores of pink-nunez tissue which are forwarded to an outside laboratory for further processing. (SDY; 03/19/2020) SYU/SYU 03/19/2020 1648 Local . 02 Pathologist provided ICD-10: S37.091A . 02 CPT . 658220 Specimen Comment: A courtesy copy of this report has been sent to [phone], [phone] Specimen Comment: [id number] Specimen Comment: Report sent to / DR PEREZ Performed at: [address] [facility], [place] [id number] MD Juan Fried MD Phone: [phone] Performed at: [address] [id number] MD Luann Paez MD Phone: [phone]
--- NOTE | 2020-03-22 18:19 | NUR ---
ASSUMED CARE APPROX 0700. PT ALERT AND ORIENTED X4. ASSESSMENT CHARTED AND VSS. PT BS HAVE BEEN STABLE THIS SHIFT. PT C/O INTERMITTENT NAUSEA AND REPORTS RELIEF WITH MEDICATION. PT DENIES ACUTE PAIN. PT DENIES CHEST PAIN. SR ON THE TELE MONITOR. SLOWLY PROGRESSING TOWARDS PLAN OF CARE. WILL CONTINUE TO MONITOR.
[2020-03-22 18:56] VITALS: BP 135/58
--- NOTE | 2020-03-22 22:31 | NUR ---
ASSUMED PT CARE AT 1900. PT IS QUITE FORGETFUL TONIGHT, REPEATEDLY ASKING THE SAME THINGS AND HAS TO BE FREQUENTLY REMINDED. TREJO PATENT WITH LITTLE OUTPUT, BLOOD TINGED. LEFT HIP PAIN BEING MANAGED WITH SCHEDULED TYLENOL. REQUESTING THE BEDPAN FREQUENTLY BUT NO BM THUS FAR. NO SIGNIFICANT CHANGES AT THIS TIME. PT IS CURRENTLY RESTING IN BED WITH EYES CLOSED.
[2020-03-23 04:03] VITALS: BP 160/67
[2020-03-23 06:39] LABS: ALBUMIN 1.6 g/dL (3.4-5.0); ANION GAP 10 mmol/L (7-16); BUN 60 mg/dL (7-18); CALCIUM 8.8 mg/dL (8.5-10.1); CHLORIDE 89 mmol/L (98-107); CO2 23 mmol/L (21-32); CREATININE 6.4 mg/dL (0.6-1.0); GLUCOSE 65 mg/dL (74-106); PHOSPHORUS 4.2 mg/dL (2.5-4.9); POTASSIUM 5.1 mmol/L (3.5-5.1); SODIUM 122 mmol/L (136-145)
[2020-03-23 07:38] VITALS: BP 188/55
--- NOTE | 2020-03-23 14:50 | NUR ---
PT IS A&OX3, BUT SHE IS FORGETFUL, RN HAS CALLED DR TO REPORT PT'S LOW BS (61 AT 0740AM) AND POOR EATING , PT 'S N/V CAN CONTROL BY MEDICATION AT MOST OF TIME, PT HAS DIALYSIS TODAY, NO FLUID REMOVED , PT'S VS ARE STABLE AT THIS TIME, PT DENIES PAIN AND SOB .
[2020-03-23 15:18] VITALS: BP 126/45
[2020-03-23 16:53] VITALS: BP 150/71
[2020-03-23 19:10] VITALS: BP 138/57
[2020-03-24 03:23] VITALS: BP 140/64
--- NOTE | 2020-03-24 04:27 | NUR ---
ASSESSMENT: PT STATE THAT THE NAUSEA HAS SUBSIDED AND THAT SHE DOES FEEL IF SHE NEEDS TO VOMIT. PT GOT CONFUSED DURING THE NIGHT, RINGING THE CALL BUTTON NUMEROUS TIMES FOR THE BEDPAN ONLY TO PASS GAS; WANTING THE TELEVISION TURNED ON THEN OFF WITHIN A FEW SECONDS AND STATING THAT SHE FEELS LIKE GOING TO SLEEP THEN ASKS THAT THE TELEVISION BE TURNED ON. VSS, AFEBRILE. SR PER MICHAEL. DIALYSIS TESSIO INTACT. TREJO WITH MINIMAL AMT OF DARK YELLOW URINE. PT IS OLIGUIC. TOLRATE MEDS CRUSHED IN APPLE SAUCE. SLOW PROGRESS TOWARDS DC GOALS, WILL CONTINUE TO MONITOR.
[2020-03-24 06:09] LABS: HEMATOCRIT 34.1 % (37.0-47.0); HEMOGLOBIN 10.9 gm/dL (12.0-15.0); MCH 24.6 pg (26.0-34.0); MCHC 32.1 g/dL (28.0-37.0); MCV 76.8 fL (80.0-100.0); RBC 4.43 mil/uL (4.20-5.00); RDW 15.5 % (10.5-14.5); WBC 19.5 thou/uL (4.0-11.0)
[2020-03-24 06:32] LABS: ALBUMIN 1.5 g/dL (3.4-5.0); ANION GAP 10 mmol/L (7-16); BUN 41 mg/dL (7-18); CALCIUM 8.7 mg/dL (8.5-10.1); CHLORIDE 93 mmol/L (98-107); CO2 24 mmol/L (21-32); GLUCOSE 78 mg/dL (74-106); PHOSPHORUS 4.2 mg/dL (2.5-4.9); SODIUM 127 mmol/L (136-145)
[2020-03-24 06:33] LABS: CREATININE 3.9 mg/dL (0.6-1.0); POTASSIUM 5.4 mmol/L (3.5-5.1)
[2020-03-24 07:30] VITALS: BP 111/67
--- NOTE | 2020-03-24 10:26 | NUR ---
CARE ASSUMED AT 0700, PT ALERT AND ORIENTED X4, PT DENIES ANY CHEST PAIN, NAUSEA AND VOMITING. PT HAS CHRONIC BACK PAIN AND HAS SCHEDULED TYLENOL. PT SEEMS MORE WEAK AND WILL RECOMMEND PT/OT WHEN DOCTOR DOES HIS ROUNDS. ASSESSMENT AND VITALS COMPLETED. PT REPOSITION EVERY 2 HOURS. CALL LIGHT AND TABLE WITHIN REACH. BED AT LOWEST LEVEL WITH ALARM.
--- NOTE | 2020-03-24 13:25 | NUR ---
1224 PT COMPLAINS OF CHEST PAIN, DESCRIBES IT PRESSURE, AND RATES IT 8/10. DR. IRVIN LOTT, GAVE ORDERS FOR EKG AND NITRO. NITRO GIVEN TO PT, PT PLACED ON O2 VIA NC. EKG COMPLETED, NO AL NOTED. PT STATES CHEST PAIN IS BETTER.
--- NOTE | 2020-03-24 15:10 | NUR ---
1440 DENA.CARE GIVEN, /C TREJO UE TO VERY FOUL SMELL. PT SEEMS VERY WEAK WHEN TRANFERRED TO CHAIR. 3 ASSIST WIH GAIT BELT.
[2020-03-24 15:26] VITALS: BP 91/50
[2020-03-24 19:21] VITALS: BP 119/50
--- NOTE | 2020-03-24 20:58 | NUR ---
PT WANTED TO GET UP AT THE BEGINNING OF THE SHIFT, RN ATTEMPTED BUT PT IS TOO FEEBLE TO TOLERATE THE BEDSIDE COMMODE AT THIS TIME. PT IS ALSO CALLING TO USE THE BATHROOM BUT WHEN STAFF ENTERS PT LOSES THE URGE. PT ALSO STATES POSITIONAL PAIN AND WAS ADJUSTED BY THE STAFF MEMBERS. PAIN MEDICATION WILL BE ADMINISTERED AND RN WILL FOLLOW POC
[2020-03-25 03:15] VITALS: BP 107/49
[2020-03-25 07:15] LABS: ALBUMIN 1.6 g/dL (3.4-5.0); ANION GAP 12 mmol/L (7-16); BUN 65 mg/dL (7-18); CALCIUM 8.7 mg/dL (8.5-10.1); CHLORIDE 92 mmol/L (98-107); CO2 23 mmol/L (21-32); GLUCOSE 80 mg/dL (74-106); PHOSPHORUS 5.2 mg/dL (2.5-4.9); SODIUM 127 mmol/L (136-145)
[2020-03-25 07:16] LABS: CREATININE 4.9 mg/dL (0.6-1.0)
[2020-03-25 07:18] LABS: POTASSIUM 6.1 mmol/L (3.5-5.1)
[2020-03-25 07:19] VITALS: BP 117/48
--- NOTE | 2020-03-25 07:52 | EKG ---
[facility] [place] [address] ELECTROCARDIOGRAM REPORT Name: RICH RIVERA Room #: 359-P ADM IN M.R.#: [id number] Admission: 03/17/20 Attend Phys: Alireza Grigsby MD Discharge: Date of : 32 Report #: [id number] THIS REPORT FOR: cc: Daniel Denny MD, Stanley P. MD Lundgren, Craig H. 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1930 Requested By: Gustavo Lyle Order Number: [id number] MD: Van Paulson Measurements Intervals [place] Rate: 77 P: -20 AR: 181 QRS: 22 QRSD: 71 T: 133 QT: 400 QTc: 453 Interpretive Statements Sinus rhythm Borderline repolarization abnormality Minimal ST elevation, anterior leads Compared to ECG 03/17/2020 22:05:38 Nonspecific change in the ST and T wave segments Electronically Signed On 03-25-2020 7:51:41 CDT by Van Paulson [email or web address] <ELECTRONICALLY SIGNED> By: Van Paulson MD, FAC 03/25/20 0751 1256 1256 Van Paulson MD, FAC /EPI
[2020-03-25 11:13] VITALS: BP 154/72; BP 156/59
[2020-03-25 12:21] VITALS: BP 115/40
--- NOTE | 2020-03-25 12:32 | NUR ---
ASSUMMED PT CARE AT APPROXIMATELY 0700. PT A&O X3. PT FORGETFUL AT TIMES. FREQUENT REORIENTATION PROVIDED. PT DENIES HAVING CHEST PAIN. PT STATED SHE HAS SOB ON EXERSION. 02 SAT STABLE. PT DENIES HAVING ACUTE PAIN. INFORMED DR. ESCUDERO OF PT'S K+ AND KIDNEY ENZYMES. DR. ESCUDERO ENTERED NEW ORDERS AND ORDERED DIALYSIS FOR TODAY. VITAL SIGNS STABLE. HYPOGLYCEMIC PROTOCOL FOLLOWED IN AM. BLOOD SUGARS STABLE. REPORT GIVEN TO JAYDA ORTIZ AT APPROXIMATELY 1200. JAYDA ORTIZ STATED UNDERSTANDING AND DENIED HAVING FURTHER QUESTIONS. PT COMFORTABLE IN BED. PT DENIES HAVING FURTHER CONCNERNS. EDUCATED PT ABOUT POC.
--- NOTE | 2020-03-25 12:35 | NUR ---
TAKEN OVER FROM JAYDA GAGNON. ASSESSMENT COMPLETED, PT DENIES CHEST PAIN, NAUSEA AND VOMITING. PT IS ON ROOM AIR, NO SIGNS OF DISTRESS NOTED. PT EATING LUNCH SRI, CALL LIGHT AND TABLE WITHIN REACH. BED AT LWEST LEVELW ITH ALARM ON.
--- NOTE | 2020-03-25 14:03 | NUR ---
SW reviewed chart and spoke with nursing. Pt receiving dialysis today. PT/OT ordered to evaluate pt for discharge needs. [facility] is following to assist as needed with discharge planning.
--- NOTE | 2020-03-25 18:47 | NUR ---
1830 PT COMPLAINS OF INCREASE ABDOMINAL PAIN IN THE LOWER QUANDRANT, RATES IT 04/05. DR. MORIN PAGED, ORDER FOR BLADDER SCAN. BLADDER SCAN SHOW LESS THAN 10ML, PAGE DR. MORIN BACK, GAVE ORDERS FOR EKG AND NITRO. VITALS TAKEN AND NITRO GIVEN TO PT. WAITING ON EKG.
[2020-03-25 19:23] VITALS: BP 114/55
--- NOTE | 2020-03-25 20:28 | NUR ---
UPON INITIAL ASSESSMENT, PT DENIED ANY CHEST PAIN OR ABDOMINAL PAIN. NO C/O NAUSEA. DENIED SOA. PT IS PASSING LOTS OF FLATUS AND STATED SHE MIGHT BE HAVING SOME GAS PAINS. EKG COMPLETED PER DR LAWRENCE. DR PEREZ NOTIFIED OF RESULTS. NO NEW ORDERS. FALL PRECAUTIONS IN PLACE. PROGRESSING SLOWLY TOWARD POC GOALS DUE TO IMPROVEMENT IN PAIN AT THIS TIME. WILL CONTINUE TO MONITOR.
--- NOTE | 2020-03-26 04:31 | NUR ---
PT HAS SLEPT MOST OF THE NIGHT. RESPIRATIONS EVEN AND UNLABORED. SHE DOES BECOME SOA W/ EXERTION WHEN HELPING REPOSITION HERSELF IN THE BED. AFEBRILE. VSS. SHE HAD 2 SMEAR BOWEL MOVEMENTS THIS SHIFT. REPOSITIONED PT REQUESTED DURING THE NIGHT. POOR PO FLUID INTAKE. FALL PRECAUTIONS IN PLACE. NO C/O CHEST PAIN DURING THE NIGHT. PROGRESSING SLOWLY TOWARD POC GOALS.
[2020-03-26 05:14] VITALS: BP 128/55
[2020-03-26 06:41] LABS: ALBUMIN 1.6 g/dL (3.4-5.0); CALCIUM 8.9 mg/dL (8.5-10.1); PHOSPHORUS 2.9 mg/dL (2.5-4.9)
[2020-03-26 06:42] LABS: CREATININE 2.8 mg/dL (0.6-1.0); POTASSIUM 4.5 mmol/L (3.5-5.1)
[2020-03-26 07:52] VITALS: BP 94/43
--- NOTE | 2020-03-26 13:35 | NUR ---
CARE ASSUMED AT 0700, PT ALERT AND ORIENTED X4,PT MORE AWAKE TODAY. PT DENIES CHEST PAIN. COMPLAINS OF SLIGHT NAUSEA AND STATES ABDOMINAL PAIN IS BETTER. PT IS ON 2L OF NC, NO SIGNS OF DISTRESS NOTED. PT WORKED WITH PT/OT TODAY, TOLERATED IT BETTER. PT APPETITE CONTINUE TO BE POOR,PROEIN SUPPLEMENT ENCOURAGE. CALL LIGHT AND TABLE WITHIN REACH. BED AT LOWEST LEVEL WITH ALARM ON. WILL CONTINUE TO MONITOR.
--- NOTE | 2020-03-26 15:29 | NUR ---
ORDER FOR PT TO BE TRANSFERRED TO , REPORT GIVEN TO JAYDA GRULLON. PT BELONGINGS PACKED AND SENT DOWN WITH PT. PT FAMILY CALLED AND UPDATED ON PT TRANSFER.
[2020-03-26 16:37] VITALS: BP 116/40
--- NOTE | 2020-03-26 16:58 | EKG ---
[facility] [place] [address] ELECTROCARDIOGRAM REPORT Name: RICH RIVERA Room #: 462-P ADM IN M.R.#: [id number] Admission: 03/17/20 Attend Phys: Alireza Grigsby MD Discharge: Date of : 32 Report #: [id number] THIS REPORT FOR: cc: Daniel Denny MD, Stanley P. MD Lundgren, Craig H. 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 : 1930 Requested By: Alireza Grigsby Order Number: [id number] MD: Van Paulson Measurements Intervals [place] Rate: 99 P: 70 PA: 185 QRS: 23 QRSD: 78 T: 161 QT: 311 QTc: 400 Interpretive Statements Sinus rhythm Nonspecific repol abnormality, diffuse leads Compared to ECG 03/24/2020 12:56:40 Nonspecific change in the ST segments Electronically Signed On 03-26-2020 16:57:41 CDT by Van Paulson [email or web address] <ELECTRONICALLY SIGNED> By: Van Paulson MD, [facility] 03/26/20 1657 01 01 Van Paulson MD, [facility] /EPI
--- NOTE | 2020-03-26 18:35 | NUR ---
PT TRANSFERRED FROM 3 VIA BED. PT DENIES ANY NEEDS, VSS.
[2020-03-26 19:05] VITALS: BP 90/48
[2020-03-26 23:36] VITALS: BP 137/36
--- NOTE | 2020-03-27 04:26 | NUR ---
ASSUMED CARE OF PT AT 1900. PT IS A/O X4. PT C/O NAUSEA. PRN NAUSEA AND STOMACH DISCOMFORT. PRN NAUSEA MEDICATION GIVEN DIRECTED. PT IS CURRENTLY IN HER BED AND APPEARS TO BE SLEEPING. WILL CONTINUE TO MONITOR.
[2020-03-27 07:04] LABS: ALBUMIN 1.5 g/dL (3.4-5.0); CALCIUM 9.1 mg/dL (8.5-10.1); PHOSPHORUS 3.1 mg/dL (2.5-4.9); POTASSIUM 4.6 mmol/L (3.5-5.1)
[2020-03-27 07:14] LABS: CREATININE 3.8 mg/dL (0.6-1.0)
[2020-03-27 07:27] VITALS: BP 116/36
--- NOTE | 2020-03-27 15:13 | NUR ---
ASSUMED CARES AT 0700. PT ORIENTED TO PERSON, PLACE AND SITUATION, FORGETFUL. DENIES PAIN AT THIS TIME. VITALS REMAIN STABLE. RIGHT IJ REMAINS INTACT. LEFT FOREARM IV INTACT AND PATENT. PT REPOSITIONED EVERY 2HRS. INCONTINENT OF BOWEL, CLEANED AND BARRIER CREAM APLLIED. UP WITH PHYSICAL THERAPY *1 MAX ASSIST. PT DID NOT VOID TODAY. EATING 25% PER MEAL AND 15% OF SUPPLEMENT. Q1H VISUAL CHECKS. CALL LIGHT WITHIN REACH. FALL PRECAUTIONS IN PLACE
[2020-03-27 15:22] VITALS: BP 103/36
[2020-03-27 19:32] VITALS: BP 99/44
--- NOTE | 2020-03-28 04:50 | NUR ---
PATIENT AOX3 CONFUSED AND FORGETFUL. PATIENT HAD 2 BOWEL MOVEMENTS THIS SHIFT. PAIN CONTROLLED THIS SHIFT. FALL PRECAUTION IN PLACE. CALL LIGHT AND PERSONAL ITEM WITHIN REACH. PATIENT IN BED ASLEEP AT THIS TIME BREATHING REGULAR AND UNLABOURED.
[2020-03-28 06:05] LABS: ALBUMIN 1.6 g/dL (3.4-5.0); CALCIUM 9.5 mg/dL (8.5-10.1); CREATININE 4.4 mg/dL (0.6-1.0); PHOSPHORUS 3.1 mg/dL (2.5-4.9); POTASSIUM 4.7 mmol/L (3.5-5.1)
[2020-03-28 09:15] VITALS: BP 90/37
--- NOTE | 2020-03-28 10:44 | NUR ---
ASSUMED CARE AT 0700. PT IS ALERT AND ORIENTED. NO COMPLAINTS AT THIS TIME. VSSA/2L O2. TOLERATING DIET. BLOOD SUGARS MONITORED AND STABLE. PT STATES UNRINATED YESTERDAY SHE THINKS IN THE BEDPAN. NO URINE THIS AM, TALKED WITH HER ABOUT NEEDING TO CLOSELY MONITOR IF SHE PEES AND TO TRY AND MEASURE IT. WILL CONT TO MONITOR. NO BM. PIV AND DIAYLISIS CATH WITHOUT ISSUES. PT/OT WORKING WITH PT. X2 ASSIST, BEDPAN. Q2 TURNS. FALL PRECAUTIONS IN PLACE. CALL LIGHT IN REACH. WILL CONTINUE TO MONITOR
[2020-03-28 15:08] VITALS: BP 83/45
[2020-03-28 20:13] VITALS: BP 101/35
[2020-03-29 02:57] VITALS: BP 120/28; BP 120/50
--- NOTE | 2020-03-29 03:29 | NUR ---
PATIENT ALERT AND ORIENTED X4. SMALL STOOL, LIQUID AT BEGINNING OF SHIFT. BS MONITORED PER ORDER. PATIENT HAS BEEN NPO SINCE 2358 ON 03/28/2020 FOR AM PROCEDURE. REPOSITIONED IN BED FOR COMFORT. VOIDED X1 - MILKY WHITE APPROX 50ML. PATIENT WILL HAVE DIALYSIS TODAY. PLEASANT AND COOPERATIVE. WILL MONITOR.
[2020-03-29 05:21] LABS: HEMATOCRIT 30.6 % (37.0-47.0); HEMOGLOBIN 9.5 gm/dL (12.0-15.0); MCH 24.6 pg (26.0-34.0); MCHC 31.2 g/dL (28.0-37.0); MCV 78.9 fL (80.0-100.0); RBC 3.87 mil/uL (4.20-5.00); RDW 15.9 % (10.5-14.5); WBC 15.1 thou/uL (4.0-11.0)
[2020-03-29 05:46] LABS: PROTIME 9.8 Seconds (9.3-11.4)
[2020-03-29 06:20] LABS: ALBUMIN 1.6 g/dL (3.4-5.0); CALCIUM 9.6 mg/dL (8.5-10.1); PHOSPHORUS 3.4 mg/dL (2.5-4.9); POTASSIUM 4.6 mmol/L (3.5-5.1)
[2020-03-29 15:20] VITALS: BP 78/38
[2020-03-29] MEDS ORDERED: GABAPENTIN 100100 MG PO (15:46)
[2020-03-29] MEDS ORDERED: ACETAMINOPHEN325 M1 PO (15:46)
[2020-03-29] MEDS ORDERED: GLUTOSE GEL 1515 G1 PO (15:46)
[2020-03-29] MEDS ORDERED: CARAFATE 1 GM TA1 G1 PO (15:46)
[2020-03-29] MEDS ORDERED: HUMALOG100 UNIT/1 SUBQ (15:46)
[2020-03-29] MEDS ORDERED: DEXTROSE 50%-WA50 ML IV PUSH (15:46)
[2020-03-29] MEDS ORDERED: GLUCAGEN1 MG/1 ML IM (15:46)
[2020-03-29] MEDS ORDERED: ONDANSETRON HCL4 M3 DISSOLVE (15:46)
[2020-03-29] MEDS ORDERED: MIRALAX17 GM PO (15:46)
[2020-03-29] MEDS ORDERED: NITROGLYCERIN0.4 MG SUBLING (15:46)
[2020-03-29] MEDS ORDERED: PANTOPRAZOLE SO40 M1 PO (15:46)
--- NOTE | 2020-03-29 16:32 | NUR ---
ASSUMED CARE AT 0700. PT IS ALERT AND ORIENTED. GOING TO RECIEVE DIALYSIS THIS AM. VSSA/2L O2. SPOKE WITH DR ESCUDERO, WILL NOT DO PROCEDURE IN IR TODAY. REQUESTING I WRITE A REPORT ABOUT HAPPENED WITH IR YESTERDAY. SEE NOTE/REPORT. PT NPO AT THIS AM, ORDERED RENAL DIET AFTER SPEAKING WITH RADIOLOGY CONFIRMING NOONE FROM IR WOULD BE IN TODAY. BLOOD SUGARS MONITORED. STABLE. PIV SL. FALL PRECAUTIONS IN PLACE. CALL LIGHT IN REACH. WILL CONTINUE TO MONITOR
--- NOTE | 2020-03-30 12:14 | D ---
[facility] [place] [address] DISCHARGE SUMMARY Name: RICH RIVERA Room #: 462-P [facility] IN M.R.#: [id number] Admission: 03/17/20 Attend Phys: Alireza Grigsby MD Discharge: 03/29/20 Date of : 31 Report #: [id number] THIS REPORT FOR: cc: Daniel Denny MD, Stanley P. MD Angles, Mark A. MD ~ THIS REPORT FOR: //name// CC: Selina Denny MD DATE OF SERVICE: 03/29/2020 HOSPITAL COURSE: The patient is an elderly -Welsh female who presented with acute renal failure after an apparent brief viral illness preceding it. The patient was found to have a creatinine of approximately 6 on arrival and it became progressively worse. Nephrology consult was held with Dr. Selina Santiago. Eventually, the patient needed a temporary dialysis catheter placed and she was started on hemodialysis. She did have problems with acidosis and hyperkalemia prior to the dialysis. Her urinary output continually decreased during those days. The patient was found to have rhabdomyolysis. It is suspected that the cause may have been from Lipitor, which she started recently prior to being admitted. She was taken off that medicine and after several days of dialysis, her CPK levels fell from over 20,000 down to around 3000. The patient's appetite remained rather poor during this hospital stay and she has lost some weight in the last year. I had her evaluated and treated by physical and occupational therapy and requested a consult with Dr. Gutierrez Hyman from Physical Medicine and Rehab. He recommended the patient have an inpatient rehab stay to help her get back on her feet again and to recover her renal function. Plans at discharge included transferring her to the [address] [place] [address] Rehab Unit. She will get physical therapy, occupational therapy and speech therapy and probably be seen by a psychologist for further evaluation and treatment. She will be continuing on hemodialysis under the care of Dr. Santiago and his group. Her permanent hemodialysis catheter which is recommended could not be placed prior to discharge because of the holiday weekend and we planned to make arrangements for the hemodialysis catheter to be permanently replaced after she is discharged from her rehab stay. DISCHARGE MEDICATIONS: Amlodipine 10 mg by mouth daily, Carafate 1 gram by mouth twice daily, nitroglycerin 0.4 mg sublingual every 5 minutes up to [address] [address] DISCHARGE SUMMARY Name: RICH RIVERA Room #: 462-P [facility] IN ..#: [id number] Admission: 03/17/20 Attend Phys: Alireza Grigsby MD Discharge: 03/29/20 Date of : 31 Report #: [id number] for chest pain, acetaminophen 325 mg by mouth 3 times a day as needed for pain, gabapentin 100 mg by mouth daily at bedtime, dextrose 50% in water, glucose liquid, glucose tabs. Oral treatments for hypoglycemia in the event of excessive over treatment of her serum blood sugar issues from diabetes. She also takes MiraLax 17 grams in a glass of water by mouth daily, ondansetron HCL 4 mg ____ every 6 hours p.r.n. nausea. Carafate 1 gram by mouth twice a day, pantoprazole 40 mg by mouth daily, Lispro insulin on the low intensity sliding scale and glucagon on a p.r.n. basis for hypoglycemia. DISCHARGE DIAGNOSES: 1. Acute renal failure. 2. Mild chronic kidney disease. 3. Rhabdomyolysis. 4. Hypertension. 5. Type 2 diabetes mellitus. 6. Hyperlipidemia. 7. History of remote gastrointestinal bleed. 8. History of right shoulder pain. 9. History of syncope. 10. History of orthostatic hypotension in the past. 11. History of elevated transaminase levels and fatigue. 12. ____ fatigue. The patient is being transferred to the rehab unit for her continuing care after discharge from the acute care part of the hospital. I will be following her there with Dr. Santiago and Dr. Hyman will become the attending. I have written an order for all statin drugs to be considered as allergies, so as to prevent rhabdomyolysis again in the future. <ELECTRONICALLY SIGNED> By: Alireza Grigsby MD 03/30/20 1214 [id number] Alireza Grigsby MD /nt
== END 2020-03-29 17:46 | DRG 682 ==
LOC: ER 10:42 → 2N 16:00 → EROBS 16:00 → 3W 16:00 → 2N 16:56 → 3W 03-18 20:18 → 4W 03-26 15:33
PROVIDERS: Emergency Medicine; Hospitalist; Internal Medicine Nephrology; ADMIT Internal Medicine; ATTEND Internal Medicine
DX: N17.0 Acute kidney failure with tubular necrosis (principal); E43 Unspecified severe protein-calorie malnutrition; M62.82 Rhabdomyolysis; E87.2 Acidosis; E87.1 Hypo-osmolality and hyponatremia; E86.0 Dehydration; I34.0 Nonrheumatic mitral (valve) insufficiency; E78.5 Hyperlipidemia, unspecified; K21.9 Gastro-esophageal reflux disease without esophagitis; F03.90 Unspecified dementia, unspecified severity, without behavioral disturbance, psychotic disturbance, mood disturbance, and anxiety; N18.9 Chronic kidney disease, unspecified; I12.9 Hypertensive chronic kidney disease with stage 1 through stage 4 chronic kidney disease, or unspecified chronic kidney disease; E11.22 Type 2 diabetes mellitus with diabetic chronic kidney disease; E11.40 Type 2 diabetes mellitus with diabetic neuropathy, unspecified; E87.6 Hypokalemia; I95.9 Hypotension, unspecified; M10.9 Gout, unspecified; K57.90 Diverticulosis of intestine, part unspecified, without perforation or abscess without bleeding; R07.89 Other chest pain; E66.9 Obesity, unspecified; R34 Anuria and oliguria; T46.6X5A Adverse effect of antihyperlipidemic and antiarteriosclerotic drugs, initial encounter; Y92.89 Other specified places as the place of occurrence of the external cause; Z90.710 Acquired absence of both cervix and uterus; Z68.29 Body mass index [BMI] 29.0-29.9, adult
CPT/HCPCS: 10040; 10045; 10081; 10879; 32100

== ENCOUNTER 2020-03-29 16:05 | Inpatient (IN) | payer OTHER ==
[~2020-03-29] VITALS: Ht 167.6 cm; Wt 84.2 kg
--- NOTE | ~2020-03-29 | HC ---
[facility] [place] [address] CONSULTATION Name: RICH RIVERA Room #: 509-P ADM IN M.R.#: [id number] Admission: 03/29/20 Attend Phys: Gutierrez Hyamn MD Discharge: Date of : 31 Report #: [id number] THIS REPORT FOR: cc: Daniel Denny MD, Stanley P. MD Deutch,Evert Zuluaga. PhD ~ CC: Gutierrez Denny DATE OF SERVICE: 03/31/2020 NEUROBEHAVIORAL STATUS EXAM ATTENDING PHYSICIAN: Gutierrez Hyman MD ART MUSEUM AIDE: Evert Rashid, PhD CLINICAL PRESENTATION: The patient is an 89-year-old black female originally admitted to the [facility] on 03/17/2020 with abdominal pain, nausea, vomiting and had acute renal insufficiency superimposed on chronic kidney disease. The patient was also noted to have hypokalemia, hyponatremia, and morbid rhabdomyolysis with a CPK greater than 20,000. Her assessment on admission to the rehab unit included possible myopathy; severe rhabdomyolysis; acute tubular necrosis; acute renal insufficiency superimposed on chronic kidney disease, now dialysis dependent; newly diagnosed mitral regurgitation, moderate to severe; hypertension; diabetes mellitus type 2; prior history of gout; history of gastrointestinal bleed and electrolyte abnormalities. A complete description of her medical condition and history can be found in her medical record. Neuropsychological consultation was requested to provide assistance in the assessment of cognitive and emotional status and to provide recommendations and services. Prior to this most recent admission, she reports living with the assistance of her son in their home. She has 2 children. The patient is a high school graduate. 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 She reports having a family history of dementia in her mother. The patient does not report any prior history of treatment for anxiety or depression. She does indicate that her son often told her that she is having memory problems that appeared to be dementia. The patient reports having been independent with instrumental activities of daily living and driving prior to this most recent medical event. TECHNIQUES UTILIZED: Clinical interview, review of medical records, staff consultation and behavioral observation, mini mental status exam 2 standard version, brief verbal fluency assessment and clock drawing. [facility] [address] [place] [address] CONSULTATION Name: RICH RIVERA Room #: 509-P [facility] IN [facility].#: [id number] Admission: 03/29/20 Attend Phys: Gutierrez Hyman MD Discharge: Date of : 31 Report #: [id number] EXAMINATION FINDINGS: The patient was alert and cooperative with the assessment. She reports being unable to walk as the reason for her hospitalization. There is no evidence of aphasia. Her thoughts are logical and goal oriented. There is no evidence of thought disorder. She does not report auditory or visual hallucinations. She describes difficulty with memory. She does not report problems with sleep, appetite, anxiety or depression. She indicates physically difficulty in walking is her main complaint. Performance on the MMSE 2 brief version is extremely low with a raw score of 11/16. She was 3/3 for initial registration, 3/5 for orientation to time, 5/[address] and 0/3 for immediate recall of 3 items after a brief time delay and distraction. Performance on the MMSE 2 standard version is in the borderline range with a T score of 29 and percentile rank at 2. She was 2/5 for serial sevens, 2/2 for naming, 1/1 for repetition, 3/3 for comprehension. She could read and follow single command and write a sentence. However, she was unable to copy a simple geometric design. The patient was unable to draw a clock and set the hands at a designated time. Impairment with planning as well as executive functioning associated with hand placement is noted. Brief letter fluency assessment was at the 7th percentile with a T score 35. Brief category assessment was in the borderline range with a T score of 29 and percentile rank at 2. Greater deficits were noted in category fluency, which often is consistent with deficits in semantic functioning and often seen in neurodegenerative disorders. The patient is presenting with deficits in immediate memory, visual spatial planning and problem solving and executive functioning. Variability in verbal fluency is noted. 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 RECOMMENDATIONS: The patient may benefit from a more thorough workup for neurodegenerative/neurocognitive deficits. The patient does acknowledge difficulty with memory. Consideration for use of medication to support memory would be of benefit. The use of compensatory strategies to assist with cognition will also be helpful. The patient should not return to driving. Assistance will also be necessary for the management of medication, finances and nutrition. [facility] [address] [place] [address] CONSULTATION Name: RICH RIVERA Room #: 509-P [facility] IN M.R.#: [id number] Admission: 03/29/20 Attend Phys: Gutierrez Hyman MD Discharge: Date of : 31 Report #: [id number] Thank you very much for allowing me to provide the consultation on this patient. By: 1651 Evert Rashid, PhD /nt
--- NOTE | ~2020-03-29 | H ---
[facility] [place] [address] HISTORY AND PHYSICAL Name: RICH RIVERA Room #: 509-P ADM IN M.R.#: [id number] Admission: 03/29/20 Attend Phys: Gutierrez Hyman MD Discharge: Date of : 31 Report #: [id number] THIS REPORT FOR: cc: Daniel Denny MD, Stanley P. MD Smithson, David G. MD ~ CC: Gutierrez Denny DATE OF SERVICE: 03/30/2020 HISTORY AND PHYSICAL/POSTADMISSION PHYSICIAN EVALUATION HISTORY OF PRESENT ILLNESS: The patient is an 89-year-old -Eritrean female who was originally admitted on 03/17/2020 with abdominal pain, nausea, vomiting and had acute renal insufficiency superimposed on chronic kidney disease. She was noted to have hypokalemia, hyponatremia and morbid rhabdomyolysis with a CPK greater than 20,000. She had some chest pain with elevated troponin. EKG did not show evidence of ischemia. Cardiology was involved. Nuclear stress test showed no evidence of stress-induced ischemia or prior PA. She was noted to have moderate to severe mitral regurgitation, which will be treated conservatively and she can follow up with Cardiology as an outpatient. She was followed closely by Nephrology and has needed hemodialysis for acute tubular necrosis, superimposed on chronic kidney disease. Her creatinine did reach a high of 9.2. She currently has a temporary dialysis catheter in place and the plan is to have a permanent one be placed as an outpatient. She has had a significant decrease in her functional level and has considerable proximal weakness consistent with a proximal myopathy. She has had a marked decline in her functional abilities. She has now been admitted for acute in-hospital inpatient rehabilitation. PAST MEDICAL HISTORY: Prior medical history includes hypertension, gout, diverticulosis, GI bleed, chronic kidney disease, prior history of decreased potassium. Past history includes diabetes mellitus type 2, diet controlled. SOCIAL HISTORY: She lives in a house, single story with retired son. She did not utilize gait aids premorbidly, although she did have a walker at home. REVIEW OF SYSTEMS: She did not complain of any chest pain, shortness of breath, abdominal discomfort. PHYSICAL EXAMINATION: GENERAL: The patient was seen later yesterday. She was in no distress. She had dialysis previously in the day. VITAL SIGNS: Temperature 36.5, pulse 83, respirations 18, blood pressure 111/35. She follows basic commands, was a little sleepy and appeared somewhat [address] [address] HISTORY AND PHYSICAL Name: RICH RIVERA Room #: 509-P [facility] IN .R.#: [id number] Admission: 03/29/20 Attend Phys: Gutierrez Hyman MD Discharge: Date of : 31 Report #: [id number] forgetful, was in no distress, cooperative. HEENT: Facies were symmetric. CHEST: Sounded clear to auscultation. CARDIOVASCULAR: Regular rate and rhythm. ABDOMEN: Bowel sounds positive, nontender. GENITOURINARY AND RECTAL: Deferred. EXTREMITIES: Upper extremities revealed functional range of motion. Proximal strength is 3+ to 4- and distally she is more of a grade 4-. In her lower extremities, proximal strength is probably at 3+ to 4-, distally is more of a 4-. No obvious focal sensory decrease. No calf swelling. Tone appeared to be intact. Bed mobility has been max assist. She has been unable to ambulate. ASSESSMENT: The patient is an 89-year-old -Eritre[place] female with the following problem list: 1. Proximal myopathy. 2. Severe rhabdomyolysis. 3. Acute tubular necrosis. 4. Acute renal insufficiency superimposed on chronic kidney disease is now dialysis dependent. 5. Newly diagnosed mitral regurgitation, moderate to severe. 6. Hypertension. 7. Diabetes mellitus type 2. 8. Prior history of gout. 9. Hypertension. 10. History of gastrointestinal bleed. 11. Electrolyte abnormalities. PLAN: The patient has been admitted for acute in-hospital inpatient rehabilitation. From a postadmission physician evaluation perspective, there are no relevant changes since the preadmission screening. Please see the above review of current and prior medical and functional conditions and comorbidities. Please see the patient's previous and current functional status. As far as risk of complication, she does have the multiple medical comorbidities as noted above. Initial plan of care involves the interdisciplinary acute inpatient rehabilitation program. Measurable functional goals would be for the patient to become modified independent with transfers, mobility and ADLs, so that she can hopefully return back to her prior living situation. Prognosis is reasonably good. She is at a lower level, but she appears motivated. Estimated length of stay is probably at least 2 weeks and likely longer. Potential barriers would include her multiple medical comorbidities and decreased functional status. The patient meets diagnostic criteria for an acute in-hospital inpatient rehabilitation stay. She meets the medical necessity criteria. We will have the multiple solutions delivery consultant physicians continue to follow up. She does have the [facility] [address] [facility] [facility] [address] [place] [address] HISTORY AND PHYSICAL Name: RICH RIVERA Room #: 509-P ADM IN M.R.#: [id number] Admission: 03/29/20 Attend Phys: Gutierrez Hyman MD Discharge: Date of : 31 Report #: [id number] tolerance for therapies and has appropriate discharge goals back to the home setting. By: 0807 1120 Gutierrez Hyman MD /nt
--- NOTE | ~2020-03-29 | PLAN ---
[facility] [place] [address] REHAB UNIT PLAN OF CARE Name: RICH RIVERA Room #: 509-P ADM IN M.R.#: [id number] Admission: 03/29/20 Attend Phys: Gutierrez Hyman MD Discharge: Date of : 31 Report #: [id number] THIS REPORT FOR: //name// CC: Gutierrez Denny DATE OF SERVICE: 04/01/2020 PROGRESS NOTE/OVERALL PLAN OF CARE SUBJECTIVE: The patient is seen back today in followup. She is in no distress. Last recorded temperature 97.7, pulse 73, respirations 18, blood pressure 107/48. She is working in therapies. Transfers are max assist. She was able to ambulate 4 steps max assist with a front-wheeled walker. Lower body dressing is dependent. ASSESSMENT: 1. Proximal myopathy. 2. Severe rhabdomyolysis. 3. Acute tubular necrosis. 4. Acute renal insufficiency superimposed on chronic kidney disease, now dialysis dependent. 5. Newly diagnosed mitral regurgitation, moderate to severe. 6. Hypertension. 7. Diabetes mellitus type 2. 8. Prior history of gout. 9. Hypertension. 10. History of gastrointestinal bleed. 11. Electrolyte abnormalities. PLAN: The overall plan of care is based on the preadmission screen, post-admission physician evaluation and information garnered from therapy assessments. 1. Estimated length of stay is probably at least 10 days to 2 weeks. 2. Medical prognosis is reasonably good. 3. Anticipated interventions includes the interdisciplinary acute inpatient rehabilitation program. 4. Anticipated functional outcomes would be for the patient to become modified independent with transfers and mobility and to improve as far as gait with the walker along with basic ADLs. 5. Discharge destination would be back to the home setting where she lives with her retired son. 6. Expected therapy by discipline includes PT and OT one and [id number] hours [address] [address] REHAB UNIT PLAN OF CARE Name: RICH RIVERA Room #: 509-P [facility] IN [facility].#: [id number] Admission: 03/29/20 Attend Phys: Gutierrez Hyman MD Discharge: Date of : 31 Report #: [id number] per day each five days a week throughout the duration of the acute inpatient rehabilitation stay. By: 0930 1004 Gutierrez Hyman MD /[facility]
--- NOTE | ~2020-03-29 | EKG ---
[facility] [place] [address] ELECTROCARDIOGRAM REPORT Name: RICH RIVERA Room #: 509-P ADM IN M.R.#: [id number] Admission: 03/29/20 Attend Phys: Gutierrez Hyman MD Discharge: Date of : 31 Report #: [id number] THIS REPORT FOR: cc: Daniel Denny MD, Stanley P. MD Epiphany, Epiphany MD ~ THIS REPORT FOR: //name// [facility] Test Date: 2020-04-02 Test Time: 18:30:14 Pat Name: RICH RIVERA Department: Room: 509 Gender: F Casino Runner: Julio GREY : 1930 Requested By: Gutierrez Hyman Order Number: [id number] MD: Measurements Intervals [place] Rate: 79 P: -51 VA: 203 QRS: 49 QRSD: 71 T: 112 QT: 362 QTc: 416 Interpretive Statements Sinus or ectopic atrial rhythm Probable LVH with secondary repol abnrm Baseline wander in lead(s) II,III,aVF Compared to ECG 03/25/2020 20:02:34 Ectopic atrial rhythm now present Sinus rhythm no longer present [email or web address] By: 29 29 Epiphany Epiphany, /EYAD
[~2020-03-29 16:05] MED LIST changes: +ACETAMINOPHEN325 M1 PO; +DEXTROSE 50%-WA50 ML IV PUSH; +GABAPENTIN 100100 MG PO; +GLUCAGEN1 MG/1 ML IM; +GLUTOSE GEL 1515 G1 PO; +HUMALOG100 UNIT/1 SUBQ; +MIRALAX17 GM PO; +NITROGLYCERIN0.4 MG SUBLING; +ONDANSETRON HCL4 M3 DISSOLVE; +TORSEMIDE10 MG PO
[2020-03-29 18:00] VITALS: BP 111/35
--- NOTE | 2020-03-29 19:40 | NUR ---
RECEIVED REPORT FROM FRANCES (4W) RN PRIOR TO PT BEING BROUGHT TO UNIT. PT ADMITTING FOR PROXIMAL MYOPATHY, ARF, AND SEVERE RHABDOMYOLYSIS. FOLLOW UP BY DR. MERRICK FABIAN. PT ALERT AND ORIENTED X3 FORGETFUL AT TIME. SHE LIVES HOME WITH HER SON, DENIES USING CANE OR WALKER AT HOME. ADMISSION HX AND ASSESSMENT COMPLETED. ADMISSION VITAL SIGNS, WEIGHT COMPLETED. PT WAS ON 2L OF OXYGEN. DENIES USING O2 AT HOME. TOOK OFF O2 AND PT SAT 96% ON RA NOW. TIME OF SHIFT CHANGE. GAVE REPORT TO NIGHT NURSE TO FAX MEDICATION LISTS AND CALL ADMISSION CONSULT. NOTICED NA 126 TODAY AND 111/[address] FABIAN TO CONTINUE TO FOLLOW UP WITH THESE. DISCUSSED WITH PT ABOUT REHAB AND ENCOURAGED PT TO PARTICIPATE WITH THERAPY TO GET STRONGER. PT SIGNED CONSENT. PT ATE 25% OF DINNER. NOT ABLE TO CHEW WELL D/T NEW LOWER PARTIAL PLATE. OT/PT AND MAY ASK ST TO EVALUATE HER SWALLOWING AND CHEWING AND ADJUST DIET NEED. FALL PRECAUTIONS IN PLACE AND NURSING WILL CONTINUE TO MONITOR.
--- NOTE | 2020-03-30 03:15 | NUR ---
assumed care at approx 1900 evening 03/29. pt lying in bed with head of bed elevated resting. pt alert and oriented x4, appropriate and cooperative somewhat forgetful. pt assisted with bedpan and pt had small liquid bm. pt took hs meds with applesauce tolerating well. pt appears to be sleeping soundly with hourly rounding checks. bed alarm on and call light in reach. will continue to monitor.
[2020-03-30 06:35] LABS: HEMATOCRIT 29.8 % (37.0-47.0); HEMOGLOBIN 9.3 gm/dL (12.0-15.0); MCH 24.7 pg (26.0-34.0); MCHC 31.4 g/dL (28.0-37.0); MCV 78.7 fL (80.0-100.0); RBC 3.78 mil/uL (4.20-5.00); RDW 16.1 % (10.5-14.5); WBC 12.1 thou/uL (4.0-11.0)
[2020-03-30 06:42] LABS: CALCIUM 9.1 mg/dL (8.5-10.1); POTASSIUM 3.8 mmol/L (3.5-5.1)
[2020-03-30 06:44] LABS: CREATININE 3.2 mg/dL (0.6-1.0)
[2020-03-30 08:25] VITALS: BP 124/48
--- NOTE | 2020-03-30 08:35 | NUR ---
ASSUME PT CARE AT 0700. PT ALERT AND ORIENTEDX3 FORGETFUL AT TIME. REPORTS SLEPT GOOD. 124/48, HR 77. T 97.4, SAT 95% ON RA. GAVE SUCRAFATE, HELD NORVASC 10MG DUE TO DIASTOLIC IS 48. WILL NOTIFY DR. FABIAN. PT HAS ANOTHER LIQUID STOOL NOW. ASSISTED PT SITTING UP IN BED. EATING BREAKFAST. DENIES PAIN, SOB, N/V. DR. HOLBROOK WAS HERE THIS AM. NO DIALYSIS ORDER TODAY. RIGHT IJ INTACT. LABS REVIEWED. NA 132 TODAY, WAS 126 YESTERDAY. DISCUSSED ABOUT CARE PLAN. ENCOURAGED PT TO VOICE HER NEEDS AND PARTICIPATE WITH THERAPY. HER GOALS TO GET STRONGER PRIOR DISCHARGE. FALL PRECAUTION IN PLACE. SCD IS IN PLACE SINCE LAST NIGHT. CALL LIGHT WITHIN REACH. WILL CONTINUE TO MONITOR.
[2020-03-30 19:59] VITALS: BP 93/37
--- NOTE | 2020-03-31 02:43 | NUR ---
PT LYING IN BED. TYLENOL PROVIDING PAIN RELIEF. RESTING COMFORTABLY. NO NEEDS VOICED. CALL LIGHT WITHIN REACH. FREQUENT OBSERVATION.
[2020-03-31 06:30] LABS: HEMATOCRIT 29.3 % (37.0-47.0); HEMOGLOBIN 9.4 gm/dL (12.0-15.0); MCH 25.5 pg (26.0-34.0); MCHC 32.3 g/dL (28.0-37.0); MCV 79.1 fL (80.0-100.0); RBC 3.7 mil/uL (4.20-5.00); RDW 16.1 % (10.5-14.5); WBC 9.9 thou/uL (4.0-11.0)
[2020-03-31 06:50] LABS: ALBUMIN 1.8 g/dL (3.4-5.0); CALCIUM 9.2 mg/dL (8.5-10.1); POTASSIUM 3.6 mmol/L (3.5-5.1); TOTAL BILIRUBIN 0.5 mg/dL (0.2-1.0); TOTAL PROTEIN 4.9 g/dL (6.4-8.2)
[2020-03-31 08:00] VITALS: BP 106/31
[2020-03-31 09:30] VITALS: BP 114/54
[2020-03-31 13:30] VITALS: BP 110/60
--- NOTE | 2020-03-31 13:52 | NUR ---
SAT UP IN CHAIR SAQIB APPROX [id number] "FEELS GOOD TO GET OUT OF BED" DID REPORT SOME MILD LE PAIN RATED A 4-5 ON 1-10 SCALE. DOES REPORT SOME RELIEF WITH POSITION CHANGES AND RAISING FEET ON CHAIR AT BEDSIDE. ALSO REPORTS SLIGHT DECREASE IN PAIN LEVEL AFTER RECEIVING TYLENOL 325MG PO AT 1400 APPEARS TO BE RESTING QUIETLY APPROX 30 MIN AFTER TAKING. APPETITE IS FAIR-USING BEDPAN X2 AND HAS BEEN INCON OF SMALL AMOUNT URINE X1. AM BP 106/31-BP MEDICATIONS HELD PER PARAMETERS-PT DENIES DIZZINESS-BP RECHECK AT 0845 BY PT 114/54 AND AGAIN AT 1330 BY THIS RN 110/60. DOES REQUIRE AMX ASSIST X2 TO TRANSFER TO/FROM BED/CHAIR/WC. FULL RANGE AFFECT AND EXPRESSING GRATITIUDE FOR CARE PROVIDED. REMAINS HIGH FALLS RISK WITH BED ALARM AND CHAIR ALARM IN PLACE.
[2020-03-31 20:19] VITALS: BP 107/48
--- NOTE | 2020-04-01 04:31 | NUR ---
PT LYING IN BED. TYLENOL PROVIDING PAIN RELIEF. RESTING COMFORTABLY. NO NEEDS VOICED. CALL LIGHT WITHIN REACH. FREQUENT OBSERVATION.
[2020-04-01 06:40] LABS: ALBUMIN 1.9 g/dL (3.4-5.0); CREATININE 4.8 mg/dL (0.6-1.0); PHOSPHORUS 3.7 mg/dL (2.5-4.9); POTASSIUM 3.7 mmol/L (3.5-5.1)
[2020-04-01 09:00] VITALS: BP 94/46
--- NOTE | 2020-04-01 12:20 | NUR ---
chart review, pt out of room working with therapy. will cont following as needed for dc needs.
[2020-04-01 13:00] VITALS: BP 146/57
--- NOTE | 2020-04-01 16:44 | NUR ---
ASSUMED CARE OF PT AT 0700. PT IS A&OX4. BLOOD PRESSURE LOW IN AM, AMLODIPINE HELD AND BP RECHECKED IN AFTERNOON. PT DENIES SYMPTOMS OF HYPOTENSION. PT DENIES PAIN AT THIS TIME, ASKS TO CONTINUE SCHEDULED TYLENOL DUE TO THERAPIES, PARTICIPATED IN SCHEDULED THERAPIES. ACCU CHECKS BID. IV TO LEFT FOREARM CLOTTED AND REMOVED THIS SHIFT. PLANS TO HAVE NEW DIALYSIS LINE PLACED TOMORROW 04/02/20, PT NPO AFTER MIDNIGHT, DISCUSSED PROCEDURE AND ORDERS WITH PT. RIGHT IJ LINE FOR DIALYSIS IN PLACE. REFUSED TURNS, STATES THAT SHE IS UNCOMFORTABLE WHEN TURNED IN BED. +1 PITTING EDEMA NOTED TO BLE. FALL PRECAUTIONS IN PLACE AND NURSING WILL CONTINUE TO MONITOR.
[2020-04-01 18:58] VITALS: BP 99/47
--- NOTE | 2020-04-02 01:38 | NUR ---
TOLERATED TURN TO LEFT SIDE AND PILLOWS UNDER CALVES AT 2300, ASKED FOR PILLOWS UNDER CALVES TO BE REMOVED AT MIDNIGHT. 2 ATTEMPTS TO START SALINE LOCK WERE UNSUCCESSFUL. DIET LEMON-CHITINA SODA FOR STOMACH ACHE AT MIDNIGHT IMMEDIATELY BEFORE MADE NPO. ODT ZOFRAN NOW FOR CONTINUED STOMACH ACHE AND MILD NAUSEA. PLANS DIALYSIS AND DIALYSIS CATH INSERTION TODAY
[2020-04-02 07:56] LABS: POTASSIUM 4.3 mmol/L (3.5-5.1)
[2020-04-02 07:58] LABS: CREATININE 5.8 mg/dL (0.6-1.0)
[2020-04-02 08:00] LABS: PHOSPHORUS 4.3 mg/dL (2.5-4.9)
[2020-04-02 08:15] VITALS: BP 112/42
--- NOTE | 2020-04-02 13:15 | NUR ---
team meeting, recommendation: forgetful, pleasant. neuro pysch to visit with son quinton. going to need to set up outpt dialysis, going to tunneled cath tomorrow. dc 20th, hh (pt, ot, nursing), clarification with if steps, and if has wheel chair or not. check on her prior level of function.
--- NOTE | 2020-04-02 17:17 | NUR ---
ASSUMED CARE OF PT AT 0700. PT IS A&OX4. MAP 65 DURING AM VITAL SIGN CHECK, PT REPORTS OCCASSIONAL SYMPTOMS OF HYPOTENSION. DR PEREZ CONTACTED ABOUT DECREASED MAP AND NURSING INSTRUCTED TO DISCUSS D/C OF AMLODIPINE WITH NEPHROLOGY AND THAT DR PEREZ IS OKAY WITH D/C. PLANS FOR TUNNELED DIALYSIS LINE TO BE PLACED TOMORROW. PT TO BE NPO AFTER MIDNIGHT. REFUSED TURNING AND REPOSITIONING. ORDERS FOR DIALYSIS TODAY. DURING DIALYSIS PT REPORTED "CHEST PAIN" NURSE ASSESSED PT. PT STATED THAT HER PAIN WAS 4/10 STATED THAT PAIN WAS IN EPIGASTRIC REGION AND DESCRIBED PAIN BURNING. B/P 118/[address] PEREZ CONTACTED AND ORDERS RECEIVED FOR TUMS. PT REASSESSED AFTER ADMINISTERING TUMS AND REPORTED RELIEF. FALL PRECAUTIONS IN PLACE AND NURSING WILL CONTINUE TO MONITOR.
[2020-04-02 18:30] VITALS: BP 136/53
--- NOTE | 2020-04-03 08:12 | EKG ---
[facility] [place] [address] ELECTROCARDIOGRAM REPORT Name: RICH RIVERA Room #: 509-P [facility] IN M.R.#: [id number] Admission: 03/29/20 Attend Phys: Gutierrez Hyman MD Discharge: 04/02/20 Date of : 32 Report #: [id number] THIS REPORT FOR: cc: Daniel Denny MD, Stanley P. MD Couchonnal, Luis F. 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 GREY : 1930 Requested By: Alireza Grigsby Order Number: [id number] MD: Leonel Mendez Measurements Intervals [place] Rate: 79 P: -51 [place]: 203 QRS: 49 QRSD: 71 T: 112 QT: 362 QTc: 416 Interpretive Statements Sinus or ectopic atrial rhythm Probable LVH with secondary repol abnrm Baseline wander in lead(s) II,III,aVF Compared to ECG 03/25/2020 20:02:34 Ectopic atrial rhythm now present Sinus rhythm no longer present Electronically Signed On 04-03-2020 8:11:49 CDT by Leonel Mendez [email or web address] <ELECTRONICALLY SIGNED> By: Leonel Mendez MD 04/03/20810 29 29 Leonel Mendez MD /EPI
== END 2020-04-02 19:46 | disposition short-term general hospital (02) | DRG 91 ==
PROVIDERS: Hospitalist; Nurse Practitioner Family; ADMIT Physical Medicine & Rehabilitation; ATTEND Physical Medicine & Rehabilitation
DX: G72.9 Myopathy, unspecified (principal); N17.0 Acute kidney failure with tubular necrosis; E43 Unspecified severe protein-calorie malnutrition; E87.1 Hypo-osmolality and hyponatremia; M10.9 Gout, unspecified; E11.22 Type 2 diabetes mellitus with diabetic chronic kidney disease; N18.9 Chronic kidney disease, unspecified; I34.0 Nonrheumatic mitral (valve) insufficiency; I12.9 Hypertensive chronic kidney disease with stage 1 through stage 4 chronic kidney disease, or unspecified chronic kidney disease; I95.9 Hypotension, unspecified; E87.6 Hypokalemia; M19.90 Unspecified osteoarthritis, unspecified site; G30.9 Alzheimer's disease, unspecified; K57.90 Diverticulosis of intestine, part unspecified, without perforation or abscess without bleeding; E78.5 Hyperlipidemia, unspecified; F02.80 Dementia in other diseases classified elsewhere, unspecified severity, without behavioral disturbance, psychotic disturbance, mood disturbance, and anxiety; E66.9 Obesity, unspecified; Z68.30 Body mass index [BMI] 30.0-30.9, adult; Z88.8 Allergy status to other drugs, medicaments and biological substances
CPT/HCPCS: 10112; 32100

== ENCOUNTER 2020-04-02 19:34 | Inpatient (IN) | payer OTHER ==
[~2020-04-02] VITALS: Ht 162.6 cm; Wt 83.1 kg
[2020-04-02 20:05] VITALS: BP 126/4; BP 126/40
[2020-04-02 20:29] LABS: HEMATOCRIT 28.4 % (37.0-47.0); HEMOGLOBIN 9.3 gm/dL (12.0-15.0); MCH 25.8 pg (26.0-34.0); MCHC 32.8 g/dL (28.0-37.0); MCV 78.7 fL (80.0-100.0); RBC 3.61 mil/uL (4.20-5.00); RDW 16.4 % (10.5-14.5); WBC 9.1 thou/uL (4.0-11.0)
[2020-04-02 20:32] LABS: CALCIUM 8.3 mg/dL (8.5-10.1); CREATININE 2.8 mg/dL (0.6-1.0); POTASSIUM 3.5 mmol/L (3.5-5.1)
[2020-04-03] VITALS (9 sets, daily range): BP systolic 85–134; BP diastolic 35–85
--- NOTE | 2020-04-03 05:44 | NUR ---
RECIEVED PT FROM REHAB UNIT, PT ADMITED TO 2N WITH CHEST PAIN, UNPON ARRIVAL TO UNIT PT CONITINUE TO C/O CHEST PAIN / INDIGESTION, PO MEDICATION GIVEN . DR PEREZ NOTIFED THAT PT REFUSED NITR AT THAT TIME BUT WAS GOING TO LET TUMS HELP. AFTER 30 MINS PT STATES SHE IS STILL HAVING CHEST PAIN. NITRO SL GIVEN X2 WITH GOOD RESULTS. AFTER 1 1/2 PT STATES CHEST RETURNED, NITRO SL GIVEN BP DROPPED TO 85/35 PT STATES CHEST RELEIEVD, CALLED PLACED TO DR PEREZ AND INFORMED HIM OF PT STATUS. US ABD ORDERD FOR AM, AND CXR NOW ORDERED. PT THEN SLEPT FOR 2-3 HOURS . NSR ON [employer], PT RESTING WELL AT THIS TIME NPO FOR TEST AND PROCEDURE THIS AM.
--- NOTE | 2020-04-03 08:13 | EKG ---
[facility] [place] [address] ELECTROCARDIOGRAM REPORT Name: RICH RIVERA Room #: 214-P ADM IN M.R.#: [id number] Admission: 04/02/20 Attend Phys: Alireza Grigsby MD Discharge: Date of : 31 Report #: [id number] THIS REPORT FOR: cc: Daniel Denny MD, Stanley P. MD Couchonnal, Luis F. 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
--- NOTE | 2020-04-03 13:36 | NUR ---
Patient admits from rehab 5N to CCU for chest pain. Patient lives in independent home with son. She is in procedure for tunnel dialysis catheter. Son Raghav at today will not call him. Sp with [facility]N casemgr who was in process of arranging outpatient community dialysis. Referral needed to be sent to [facility]. TRAN to fax and update. 5N following for possible readmission.
--- NOTE | 2020-04-03 17:20 | NUR ---
ASSUMMED PT CARE AT APPROXIMATELY 0700. PT A&O X3. FALL PRECAUTIONS IN PLACE. PT DENIES HAVING CHEST PAIN. PT DENIES HAVING SOB. PT STATED SHE HAD OCASSIONAL UPPER ABDOMINAL PAIN. PT RECEIVED ANALGESICS AND MEDICATIONS TO HELP DECREASE PAIN. PT STATED MEDICATIONS HELPED RELIEVE PAIN. VITAL SIGNS STABLE. HYPOGLYCEMIA PROTOCOL FOLLOWED WHEN NPO. BLOOD SUGARS STABLE. COMMUNICATED TEST RESULTS C DR. PEREZ. DR. PEREZ STATED UNDERSTANDING C NO NEW ORDERS. PT HAD IR PLACEMENT OF DIALYSIS CATH TODAY. DRESSING C/D/I. NO HEMATOMA. PT COMFORTABLE IN BED. PT DENIES HAVING FURTHER QUESTIONS. EDUCATED PT ABOUT POC.
[2020-04-04 00:45] VITALS: BP 123/50
[2020-04-04 04:45] VITALS: BP 120/52
[2020-04-04 06:17] LABS: HEMATOCRIT 27.6 % (37.0-47.0); HEMOGLOBIN 8.7 gm/dL (12.0-15.0); OBSERVED RETIC COUNT 2.7 % (0.6-2.6)
[2020-04-04 06:18] LABS: APTT 27.1 Seconds (24.5-32.8)
[2020-04-04 06:28] LABS: % SATURATION 22 % (20-39); IRON 39 ug/dL (50-170); TIBC 175 ug/dL (250-450)
[2020-04-04 06:45] LABS: FOLIC ACID 4.1 ng/mL (8.6-58.9)
[2020-04-04 07:45] VITALS: BP 131/54; BP 131/59
[2020-04-04 11:45] VITALS: BP 131/59
--- NOTE | 2020-04-04 13:27 | NUR ---
Faxed pertinent information to [facility]. Sp with clinic they are reviewing. At this time they have chair times MWF and T TH Sat times avail. Sp with son Raghav who will update family and discuss best chair time. Raghav reports family plans to transport/to and from dialysis. casemgt following.
--- NOTE | 2020-04-04 15:08 | H ---
[facility] [place] [address] HISTORY AND PHYSICAL Name: RICH RIVERA Room #: 214-P ADM IN M.R.#: [id number] Admission: 04/02/20 Attend Phys: Alireza Grigsby MD Discharge: Date of : 31 Report #: [id number] THIS REPORT FOR: cc: Daniel Denny MD, Stanley P. MD Angles, Mark A. MD ~ CC: Selina Santiago MD, Dr. Alireza Denny MD DATE OF SERVICE: 04/02/2020 CHIEF COMPLAINT: Chest pain. HISTORY OF PRESENT ILLNESS: The patient is an 89-year-old -Ecuad[place] female who developed her second episode of chest pain while she was on the [facility] rehab unit. It happened after she returned from dialysis today. It did not last more than an hour and it did get better with a single sublingual nitroglycerin. She was having some problems with low blood pressure before the chest pain and certainly after she got the nitroglycerin it went lower with systolic readings in the 90s and possibly as low as the 80s. The rapid response team was called, they assessed the patient, did an EKG and a troponin level. The latter was slightly elevated, but unreliably so in the presence of end-stage renal disease. The EKG was stable with left ventricular repolarization changes in the setting of a normal sinus rhythm and no other acute changes were noted. The patient did have a stress test on 03/21/2020, I believe. That test was negative for ischemia and had post-stress ejection fraction of greater than 80%. Unfortunately, her echocardiogram showed severe mitral valve regurgitation and some pulmonary artery hypertension. Because of her symptoms, I deemed it was unwise for her to stay on the rehab unit with a full code blue status and she should be observed overnight in telemetry bed where further decisions can be made in the morning if she has any further cardiac issues. I will defer on getting a Cardiology consult done. Incidentally, the patient was to have returned to the acute care hospital for placement of a tunneled IJ catheter tomorrow. We will leave that on the schedule for now unless significant compensation and her cardiac status happens overnight. PAST MEDICAL HISTORY: Includes hypertension, hyperlipidemia, gout, diverticulosis, GI bleeding, chronic kidney disease, end-stage renal disease, problems with nonsteroidal anti-inflammatory drugs and antidiuretics on her [address] [address] HISTORY AND PHYSICAL Name: RICH RIVERA Room #: 214-P [facility] IN [facility].#: [id number] Admission: 04/02/20 Attend Phys: Ailreza Grigsby MD Discharge: Date of : 31 Report #: [id number] kidneys in the past. Also hypokalemia; gastroesophageal reflux disease; obesity; type 2 diabetes mellitus, diet controlled. FAMILY HISTORY: Not applicable, but there is a strong history of heart disease in a sister and a brother. SOCIAL HISTORY: She lives independently and has no vices. Does not use alcohol or tobacco products and has 2 sons. REVIEW OF SYSTEMS: She reports other than the chest pain episode, she was beginning to feel quite a bit better. The rest of the review of systems is otherwise benign. PHYSICAL EXAMINATION: VITAL SIGNS: Show a pulse in the 80s, respiratory rate was 16. When I examined her, blood pressure had been as low as 90s systolic with a normal borderline low oxygenation at 91%, which responded to supplemental oxygen at 2 liters per nasal cannula. GENERAL: The patient is a very pleasant, not uncomfortable appearing -Ecuadorean female who is lying in bed at time of my exam. HEENT: The extraocular muscles are intact. The oropharynx is slightly dry and pink. No lesions, no exudates. NECK: Without adenopathy or thyromegaly or mass or significant bruit. LUNGS: Clear bilaterally. CARDIAC: Reveals a regular rhythm with a systolic murmur in the left anterior axillary line. Her rhythm is regular and benign. Peripheral pulses easily palpated. ABDOMEN: Soft. Bowel sounds are present, no visceromegaly or masses. LUNGS: Clear bilaterally. EXTREMITIES: Have trace edema in the lower extremities bilaterally. NEUROLOGIC: Mental status, she is alert. She is oriented to person and place, not time. No hallucinations or delusions. Affect is slightly muted, chronically. No focal deficits of motor function or deep tendon reflexes or craniocerebellar or sensation are noted on exam today. Her blood sugars have been reasonably good recently and she actually was low at 68 this morning. The EKG and troponins have been reviewed above. ASSESSMENT AND PLAN: 1. Recurrent episodes of chest pain -- because of the patient's history of heart disease including mitral valve regurgitation that is severe, pulmonary hypertension as well as blood pressure that was low today -- I believe this merits careful observation on the telemetry bed in the acute care hospital and I have requested that she be discharged from the rehabilitation unit to be fully admitted either in CCU or other medical-surgical telemetry. 2. End-stage renal disease. Pending outcome of her overnight observational status and labs, she is probably going to be okay for having a tunneled IJ [facility] [address] [place] [address] HISTORY AND PHYSICAL Name: RICH RIVERA Room #: 214-P [facility] IN [facility]#: [id number] Admission: 04/02/20 Attend Phys: Alireza Grigsby MD Discharge: Date of : 31 Report #: [id number] catheter placed tomorrow and watched overnight after that and then with stability she can return to the rehab unit. 3. Rhabdomyolysis -- her last CPK was less than 300. 4. Type 2 diabetes mellitus -- her control has been very good during her hospitalizations. 5. Hypertension and hypotension -- I will not give the patient further doses of amlodipine unless the garden implement mechanic feels we should persist with it. 6. Gastroesophageal reflux disease. We will start the patient on scheduled doses of Tums on the off chance that acid reflux is irritating her esophagus and causing her symptoms. She is on PPI therapy as well. <ELECTRONICALLY SIGNED> By: Alireza Grigsby MD 04/04/20 1508 54 21 Alireza Grigsby MD /nt
[2020-04-04 17:00] VITALS: BP 130/50
[2020-04-04 19:58] VITALS: BP 136/48
[2020-04-05 04:45] VITALS: BP 125/41
--- NOTE | 2020-04-05 05:38 | NUR ---
patients cares were assumed at shift change. patient was assessed and meds were passed. patient was placed on a turn 2q hours for her comfort. patient continued to c/o chest pain this later in this shift. chest pain has been ruled out as non cardiac no meds ordered for reflux. elevated this patient gave zofran and turned her on her left side. at 0510 ordered to transfer this patient to [address] [place] [address]. reposrt was given JAYDA Lindsey. ROUNDS WERE DONE AND THE BED WAS IN A LOW AND LOCKED POSITION.
[2020-04-05 06:01] LABS: ALBUMIN 1.8 g/dL (3.4-5.0); CALCIUM 8.2 mg/dL (8.5-10.1); CREATININE 2.8 mg/dL (0.6-1.0); PHOSPHORUS 3.2 mg/dL (2.5-4.9)
[2020-04-05 06:14] LABS: ALBUMIN 1.8 g/dL (3.4-5.0); DIRECT BILIRUBIN 0.2 mg/dL (<0.1-0.2); TOTAL BILIRUBIN 0.5 mg/dL (0.2-1.0); TOTAL PROTEIN 4.6 g/dL (6.4-8.2)
[2020-04-05 07:27] VITALS: BP 150/63
--- NOTE | 2020-04-05 08:37 | NUR ---
bg 77, Dr. Grigsby is aware.
[2020-04-05 10:34] VITALS: BP 132/57
--- NOTE | 2020-04-05 13:37 | P ---
[facility] [place] [address] PROCEDURE REPORT Name: RICH RIVERA Room #: 454-P [facility] IN M.R.#: [id number] Admission: 04/02/20 Attend Phys: Alireza Grigsby MD Discharge: Date of : 31 Report #: [id number] THIS REPORT FOR: cc: Daniel Denny MD, Stanley P. MD Thesing, John A. MD ~ CC: Alireza Denny MD UPPER ENDOSCOPY REPORT BRIEF HISTORY: The patient is an 89-year-old woman well known to me with severe epigastric pain and tenderness. She has had some symptoms into her chest. She does have a history of reflux disease. She had recent extensive cardiovascular evaluation and it was felt that her symptoms are not of GI origin. She also has chronic anemia, which is mildly microcytic that has been present for a number of years. PREOPERATIVE DIAGNOSES: Epigastric pain and tenderness. POSTOPERATIVE DIAGNOSES: 1. Mild diffuse gastritis. 2. Small intermittently seen sliding type hiatus hernia. MEDICATIONS: Deep sedation with propofol per anesthesia. SPECIMEN: None. ESTIMATED BLOOD LOSS: None. PROCEDURE: EGD. FINDINGS: Prior to propofol sedation, procedure of upper endoscopy discussed with the patient as well as potential risks and its complications. She indicates she understands and desires to proceed. DESCRIPTION OF PROCEDURE: With the patient in left lateral decubitus position, the Olympus video endoscope was inserted in the cervical esophagus under direct vision without difficulty. Examination of this organ through its entire style revealed normal esophageal mucosa down the squamocolumnar junction. Squamocolumnar junction was inspected and noted to be unremarkable. No evidence of ulcers or erosions. Nicholas mucosa was not seen. Intermittently, a small about 2-3 cm sliding type hiatus hernia was seen. Scope was advanced in the stomach, was examined on end view as well as retroflexed views. There was a pattern of mild diffuse gastritis. This has been noted in the past and previous biopsies were negative for H. pylori. Upon retroflexion submucosal lesion of [facility] [address] [place] [address] PROCEDURE REPORT Name: RIVERARICH Room #: 454-P [facility] IN M.R.#: [id number] Admission: 04/02/20 Attend Phys: Alireza Grigsby MD Discharge: Date of : 31 Report #: [id number] less than 2 cm was seen in the cardia of the stomach. 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 It appears to be stable. Additional biopsies were not obtained. Examination of distal stomach revealed a diffuse gastritis. It is noted that previous biopsies were negative for H. pylori and those were not repeated at this time. The pylorus, duodenal bulb and post-coronary sweep were inspected and noted to be unremarkable. At that point, the scope was slowly withdrawn and careful circumferential views confirmed the above findings. The patient tolerated the procedure well. DISPOSITION: The patient with epigastric pain and epigastric tenderness. Exam is essentially unremarkable for significant mucosal disease, which likely caused her symptoms. She has improved since her admission to the hospital. She is currently on PPI. She may benefit from long-term administration of the PPI due to recurrence of her symptoms. It is also noted she has had a previous cholecystectomy. There was no significant bile in her stomach. Her symptoms may be related to nonulcer dyspepsia. It also may be related to reflux disease. Treat with PPI at this point in time. No further GI workup is planned at this time. It is noted she did have abnormal liver function studies and we will repeat those. That may have been related to rhabdomyolysis several weeks ago. <ELECTRONICALLY SIGNED> By: Gatito Ray MD 04/05/20 1337 1005 1041 Gatito Ray MD /nt
[2020-04-05] MEDS ORDERED: VENOFER20 MG/ML IV PUSH (14:54)
[2020-04-05] MEDS ORDERED: IMDUR 30 MG TAB30 M1 PO (14:55)
[2020-04-05] MEDS ORDERED: CALTRATE-600 W1 EACH PO (14:56)
[2020-04-05] MEDS ORDERED: ONDANSETRON HCL4 M3 DISSOLVE (14:56)
[2020-04-05] MEDS ORDERED: FOLIC ACID1 MG PO (14:57)
--- NOTE | 2020-04-05 15:16 | NUR ---
Alert and oriented to time, place and person. bed rest. BM one time, no urine output so far during this shif. complains of cp, doctor is aware.
--- NOTE | 2020-04-05 15:32 | NUR ---
Pt dc'd back to [facility] acute rehab today. New dialysis referral intiated with [facility]. Son aware that they will have schedule options for MWF or TTHS pending their preference as family indicates they will transport. 5N cm to follow for any hh/dme and to finalize her outpt dialysis schedule. [facility] will need her flowsheets faxed.
--- NOTE | 2020-04-08 13:35 | D ---
[facility] [place] [address] DISCHARGE SUMMARY Name: RICH RIVERA Room #: 454-P [facility] IN M.R.#: [id number] Admission: 04/02/20 Attend Phys: Alireza Grigsby MD Discharge: 04/05/20 Date of : 31 Report #: [id number] THIS REPORT FOR: cc: Daniel Denny MD, Stanley P. MD Angles, Mark A. MD ~ THIS REPORT FOR: //name// CC: Selina Denny DATE OF SERVICE: 04/05/2020 HOSPITAL COURSE: The patient is an 89-year-old -Wallisian female who while on the rehab unit at [facility], where she was recovering after acute care hospitalizations for rhabdomyolysis and acute kidney failure and suddenly developed recurrent chest pain. As she was also being planned for placement of tunneled IJ hemodialysis catheter, she was transferred back to the acute care hospital and managed carefully. There is no evidence of myocardial infarction. EKG was entirely stable with left ventricular repolarization changes consistent with her prior EKGs also done recently. There was no evidence of infarction or ischemia. GI consult was obtained because of concerns that the patient might be having recurrent gastrointestinal inflammation and Dr. Gatito Ray saw the patient and performed an EGD on the morning of discharge. The results were benign. There was mild GI inflammation, but it did not warrant biopsies. The patient also had a small sliding hiatal hernia noted as well. The patient does have tenderness at the xiphisternal border and it is reproducible even when the patient is not having "chest pain." When questioned further about the tenderness and pain in that area, the patient admits that it began after she bumped hard into a door at her home prior to the admission for rhabdomyolysis. She denies any other trauma or falls. The patient is being discharged to return to the rehab unit for her continuing rehab stay prior to returning home. DISCHARGE DIAGNOSES: 1. Chest pain, musculoskeletal. 2. Sternal fracture. 3. End-stage renal disease. 4. Type 2 diabetes, diet controlled. [address] [address] DISCHARGE SUMMARY Name: RICH RIVERA Room #: 454-P [facility] IN ..#: [id number] Admission: 04/02/20 Attend Phys: Alireza Grigsby MD Discharge: 04/05/20 Date of : 31 Report #: [id number] 5. Severe mitral valve regurgitation. 6. Hypertension. 7. Sliding hiatal hernia with gastroesophageal reflux disease. 8. Multifactorial anemia including iron deficiency. 9. Hyperlipidemia. 10. History of gout. 11. History of diverticulosis. 12. Obesity. 13. General debility and severe malnutrition with an albumin level of 1.8. MEDICATIONS: At the time of discharge include; 1. Imdur 30 mg by mouth daily. 2. Topical lidocaine as needed for sternal pain. 3. Pantoprazole 40 mg daily. 4. Acetaminophen p.r.n. 5. Calcium carbonate 500 mg by mouth 3 times daily. 6. Gabapentin 100 mg by mouth nightly. 7. Sucralfate 1 g by mouth twice daily. 8. Nitroglycerin 0.4 mg sublingual every 5 minutes p.r.n. chest pain. 9. Ondansetron 4 mg by mouth q.6 hours p.r.n. nausea. 10. MiraLax 17 g in a glass of water by mouth daily. The patient is being discharged to the rehab unit. I will continue to follow her there as well as Dr. Santiago from Nephrology, where she will be under the care of Dr. Gutierrez Hyman. <ELECTRONICALLY SIGNED> By: Alireza Grigsby MD 04/08/20 1335 1451 1628 Alireza Grigsby MD /nt
== END 2020-04-05 15:28 | DRG 391 ==
LOC: 2N 19:34 → 4W 04-05 05:23
PROVIDERS: Hospitalist; Nurse Practitioner; ADMIT Internal Medicine; ATTEND Internal Medicine
DX: K29.60 Other gastritis without bleeding (principal); N18.6 End stage renal disease; E43 Unspecified severe protein-calorie malnutrition; S22.20XA Unspecified fracture of sternum, initial encounter for closed fracture; N17.9 Acute kidney failure, unspecified; M62.82 Rhabdomyolysis; I12.0 Hypertensive chronic kidney disease with stage 5 chronic kidney disease or end stage renal disease; K21.9 Gastro-esophageal reflux disease without esophagitis; I95.9 Hypotension, unspecified; K44.9 Diaphragmatic hernia without obstruction or gangrene; E11.22 Type 2 diabetes mellitus with diabetic chronic kidney disease; K57.90 Diverticulosis of intestine, part unspecified, without perforation or abscess without bleeding; D50.9 Iron deficiency anemia, unspecified; M10.9 Gout, unspecified; R13.10 Dysphagia, unspecified; Z20.828 Contact with and (suspected) exposure to other viral communicable diseases; I34.0 Nonrheumatic mitral (valve) insufficiency; E78.5 Hyperlipidemia, unspecified; E66.9 Obesity, unspecified; Z68.31 Body mass index [BMI] 31.0-31.9, adult; Z88.8 Allergy status to other drugs, medicaments and biological substances; X58.XXXA Exposure to other specified factors, initial encounter; Y93.89 Activity, other specified; Y92.89 Other specified places as the place of occurrence of the external cause; Y99.8 Other external cause status; Z99.2 Dependence on renal dialysis
CPT/HCPCS: 10081; 32100; 62110; 62900; 70005

== ENCOUNTER 2020-04-05 14:44 | Inpatient (IN) | payer OTHER ==
[~2020-04-05] VITALS: Ht 165.1 cm; Wt 72.1 kg
[2020-04-05] MEDS ORDERED: VENOFER20 MG/ML IV PUSH (14:54)
[2020-04-05] MEDS ORDERED: IMDUR 30 MG TAB30 M1 PO (14:55)
[2020-04-05] MEDS ORDERED: ONDANSETRON HCL4 M3 DISSOLVE (14:56)
[2020-04-05] MEDS ORDERED: CALTRATE-600 W1 EACH PO (14:56)
[2020-04-05] MEDS ORDERED: FOLIC ACID1 MG PO (14:57)
[2020-04-05 15:32] VITALS: BP 125/49
--- NOTE | 2020-04-05 15:59 | NUR ---
chart review. pt going back to acute rehab. cm visited with her on phone call. bedside nurse was in the room as well. re intro to cm and team meeting. dcp. pt independent prior to hospital, lives with her son. [place] is 1 contact for her. has 3 steps enter and 12 inside home. not driving in a while but did uses to drive to [place]. manage own medication. she will requirer outpt dialysis that is being worked on to set up, will cont following as needed for dc need.
--- NOTE | 2020-04-05 16:23 | NUR ---
PT ARRIVED AT 1530 FROM 4W. A/O*4, FORGETFUL. C/O MILD NON-CARDIAC CHEST PAIN AND RIGHT SHOULDER PAIN. VITALS ARE STABLE. PT HAS BLE EDEMA, 1+ AND RIGHT HAND EDEMA, EXTREMITIES ELEVATED. REDNESS NOTED AROUND SACRAL AREA, SMALL BUMP NOTED ON THE RIGHT BUTT CHEEK. PT REPOSITIONED Q2H. DIALYSIS CATH ON RIGHT CHEST REMAINS DRY AND INTACT. PIV ON RIGHT FOREARM AND LEFT UPPER ARM REMAIN INTACT AND PATENT. PT REMAINS ON BEDREST. Q1H VISUAL CHECKS. CALL LIGHT WITHIN REACH. FALL PRECAUTIONS IN PLACE
[2020-04-05 19:37] VITALS: BP 119/54
--- NOTE | 2020-04-06 01:02 | NUR ---
ASSESSMENT COMPLETED. PT IS ALERT AND ORIENTED WITH SOME MILD FORGETFULNESS. SHE IS OTHERWISE PLEASANT AND COOPERATIVE. SHE ASKED FOR A BEDPAN AND URINATED X1-WITH OLIGURIA.SHE ROLLS WELL IN BED TO HELP WITH REPOSITIONING. PT C/O LULU SORENESS-TIMED TYLENOL GIVEN. R HAND ELEVATED ON PILLOW AND RFA IV DC/D.PT ON ROOM AIR-DENIES ANY SOA/CHESTPAIN/DYSPEPSIA. SHE SWALLOWS WITH NO DIFFICULTIES. FALL PREC IN PLACE AND CALL LIGHT WITHIN REACH.WILL CONTINUE WITH POC TILL EOS.
[2020-04-06 05:21] LABS: HEMATOCRIT 26.6 % (37.0-47.0); HEMOGLOBIN 8.3 gm/dL (12.0-15.0); MCH 25.1 pg (26.0-34.0); MCHC 31.4 g/dL (28.0-37.0); RBC 3.32 mil/uL (4.20-5.00); RDW 17.1 % (10.5-14.5); WBC 8.1 thou/uL (4.0-11.0)
[2020-04-06 05:39] LABS: ALBUMIN 1.8 g/dL (3.4-5.0); CALCIUM 8.7 mg/dL (8.5-10.1); DIRECT BILIRUBIN 0.2 mg/dL (<0.1-0.2); POTASSIUM 4.2 mmol/L (3.5-5.1); TOTAL BILIRUBIN 0.5 mg/dL (0.2-1.0); TOTAL PROTEIN 4.6 g/dL (6.4-8.2)
[2020-04-06 05:41] LABS: CREATININE 3.8 mg/dL (0.6-1.0)
[2020-04-06 09:08] VITALS: BP 143/61
--- NOTE | 2020-04-06 14:14 | NUR ---
ASSUMED CARES AT 0700. PT ALERT AND ORIENTED*4 BUT FORGETFUL. C/O MILD RIGHT SHOULDER AND EPIGASTRIC PAIN, PAIN MED AND TUMS ADMINISTERED NEEDED. VITALS REMAIN STABLE. RIGHT CHEST TESIO REMAINS INTACT AND DRY. LEFT UPPER ARM IV REMAINS INTACT AND PATENT. PT CONTINUES TO HAVE BLE AND RIGHT HAND EDEMA, EXTREMITIES ELEVATED.TEDHOSE IN PLACE WHEN UP. PT CONTINUES TO HAVE REDNESS AND A SMALL BOIL-LIKE CYST ON HER SACRAL AREA, REPOSITIONED Q2H WHILE IN BED. UP WITH MIN ASSIST OF 1, GB AND WALKER AND TOLERATED WELL. PARTICIPATED WELL IN ALL THERAPIES. TRANSFERED TO DIALYSIS AT 1230 AND REPORT GIVEN TO DIALYSIS NURSE. Q1H VISUAL CHECK. CALL LIGHT WITHIN REACH. FALL PRECAUTIONS IN PLACE
[2020-04-06 15:30] VITALS: BP 149/66
[2020-04-06 20:00] VITALS: BP 128/47
--- NOTE | 2020-04-06 23:41 | NUR ---
PT ALERT AND ORIENTED X 4, FORGETFUL. UP TO BSC WITH MAX ASSIST X 1 PIVOT TRANSFER. RIGHT TESSIO DRESSING C/D/I. PT C/O STOMACH PAIN. TYLENOL AND TUMS GIVEN AT HS. PT REPOSITIONED MORE THAN Q2H FOR COMFORT. PT CALLS OUT FREQUENTLY FOR VARIOUS THINGS. BED ALARM ON FOR SAFETY. PT CHECKED ON HOURLY ROUNDS.
--- NOTE | 2020-04-07 04:29 | NUR ---
PT C/O STOMACH DISCOMFORT AND GAS. TYLENOL, TUMS AND PROTONIX GIVEN EARLY.
[2020-04-07 08:05] VITALS: BP 122/44
--- NOTE | 2020-04-07 16:22 | NUR ---
ASSUMED CARE AROUND 0700, PT A&O X 4, NO ACUTE DISTRESS NOTED. VSS O2 ON RA. PAIN CONTROLLED WITH MAMI TYLENOL. PT C/O NAUSEA AND INDIGESTION RECEIVED PRN ZOFRAN AND MAMI TUMS WITH ADEQUATE RELIEF. BOIL TO R BUTT CHEEK OOZING DRAINAGE, NOTIFIED PROVIDER, CULTER OF SPECIMEN COLLECTED AND SENT TO LAB, WOUND CARE ALSO CONSULTED. R TESSIO IN PLACE, DIALYSIS T/TH/SAT. PT RESTING IN BED, CALL LIGHT WITHIN REACH, WILL CONTINUE TO MONITOR PER POC.
[2020-04-07 19:20] VITALS: BP 114/46
--- NOTE | 2020-04-08 01:26 | NUR ---
PT ALERT AND ORIENTED X 4. RIGHT TESSIO DRESSING C/D/I. PT C/O STOMACH DISCOMFORT. SCHEDULED TYLENOL AND TUMS GIVEN AT HS. PT WAS CALLING OUT ALMOST EVERY 15 MINUTES IN EVENING FOR VARIOUS THINGS. PT APPEARS TO BE SLEEPING AT THIS TIME. BED ALARM ON FOR SAFETY.
[2020-04-08 06:51] LABS: ALBUMIN 1.8 g/dL (3.4-5.0); CALCIUM 8.6 mg/dL (8.5-10.1); CREATININE 3.8 mg/dL (0.6-1.0); PHOSPHORUS 3.7 mg/dL (2.5-4.9); POTASSIUM 3.9 mmol/L (3.5-5.1)
[2020-04-08 07:30] VITALS: BP 114/49
--- NOTE | 2020-04-08 10:38 | NUR ---
WOUND CONSULT; ROUNDING WITH SHARDA HUERAT. A SMALL WOUND TO THE RIGHT BUTTOCK/DENA-RECTAL AREA WAS ASSESSED. APPROX 0.2 X 0.2 X 1.0 WITH UNDERMINING 12 TO 12:00. SUGGESTIVE THAT THIS MAY HAVE BEEN AN ABCESS. THE WOUND IS TENDER TO THE PATIENT. NO DRAINAGE WAS NOTED. NO EYTHEMA. RECOMMENDATIONS; 1-Q2H TURNING 2-PACK WITH AQUACEL AG LOOSELY,COVER WITH A BORDERED FOAM DRESSING. DISCUSSED WITH JAYDA
--- NOTE | 2020-04-08 16:25 | NUR ---
PATIENT ALERT AND ORIENTED X 4 - MAKES NEEDS KNOWN. HAS BEEN WORKING WITH THERAPY ALL DAY. PATIENT STATED HAD NAUSEA AND DIZZINESS EARLIER THIS MORNING. VITALS TAKEN AND STABLE AND GIVEN ZOFRAN TO AID WITH GASTRIC DISCOMFORT. PATIENT LATER CHECKED ON AT LUNCH TIME AND STATED WAS FEELING BETTER. PATIENT APPETITE GOOD. HAD GENERALIZED PAIN DURING THE DAY AND ADMINISTERED TYLENOL WHICH HELPED WITH DISCOMFORT. PATIENT HAD WOUND CARE ASSESS BUTTOCK ULCER/BOIL. STATED WAS HEALING AND HAD SOME DRAINAGE WHICH A CULTURE SENT OUT ON. NO RESULTS OF YET. DRESSING CHANGED AND INTACT AND DRY CURRENTLY. PATIENT NEEDS ENCOURAGEMENT TO UTILIZE WALKER.
[2020-04-08 19:28] VITALS: BP 144/49
--- NOTE | 2020-04-09 04:26 | NUR ---
RECIEVED CARE OF THIS PATIENT AT 1900. PATIENT ALERT AND ORIENTED X4 BUT FORGETFUL. CALLS OUT FREQUENTLY, SOMETIMES FOR THINGS SHE CAN DO HERSELF. OTHET TIMES IT MIGHT BE TO TURN HER WHEN SHE WAS JUST CHE0KQN 5 MINS AGO. HAS A L CHEST TESSIO FOR DIALYSIS, WEDNESDAY, WEDNESDAY AD WEDNESDAY. IV IN LFA. SLEPT OFF AND ON DURING NIGHT. C/O PAIN. HAS SCHEDULED TYLENOL FOR PAIN THAT APPEARS TO WORK.
[2020-04-09 06:24] LABS: ALBUMIN 1.8 g/dL (3.4-5.0); CALCIUM 8.5 mg/dL (8.5-10.1); CREATININE 4.5 mg/dL (0.6-1.0); POTASSIUM 4.1 mmol/L (3.5-5.1)
[2020-04-09 07:30] VITALS: BP 132/46
--- NOTE | 2020-04-09 11:03 | NUR ---
WOUND CARE F/U ASSESS PERIRECTAL WOUND W/ SNAG GRINDER ANASTASIA, BISHNU DRSG IN PLACE,UNSURE WHEN IT FELL OFF, NO DRAINAGE NOTED, LESS HARRIETT, HEALING, NO S/S INFECTION, PT COOPERATIVE DENIES PAIN RECOMMENDATIONS; CONT POC W/ AQUACEL AG, BORDER FOAM DRSG TO AREA, DAILY AND REPLACE NEEDED SNAG GRINDER AWARE
--- NOTE | 2020-04-09 12:55 | NUR ---
team meeting, recommendation: re team and dc , hh ( pt, ot, st, nursing and sw). outpt dialysis [facility]. family to assist with bills and pills. no driving till cleared by .
--- NOTE | 2020-04-09 16:00 | NUR ---
1600 RESUMMED CARE FROM OVERNIGHT SHIFT THIS AM PATIENT IN ROOM LYING IN BED QUIET. PATIENT ATE BREAKFAST TOOK MEDICATION WITHOUT INCIDENCE PATIENT COMPLAINED ABOUT STOMACH HURTING THIS AM. PATIENT HAS TUMS SCHEDULED FOR HER STOMACH PAIN. PATIENTS ABDOMEN SOFT BOWEL SOUNDS PRESENT LUNGS CLEAR PATIENT HAD DIALYSIS DONE TODAY. PATIENT HAS EDEMA IN BOTH LOWER EXTREMITIES ORIENTED TIMES 4. PATIENT IS FORGETFUL PATIENT HAS SMALL WOUND ON ON RT BUTTOCK THAT WAS A BOIL BEFORE PT CAME HERE. WOUND CARE LOOKED AT AREA AND PUT BARRIER CREAM AND DRESSING OVER WOUND. PATIENT WORKED WITH PT WALKING HAS BEEN IMPROVING. PATIENT COOPERATIVE SISTER CALLED TO CHECK ON PATIENT AND WILL VISIT TOMMOROW. PATIENT WILL PROBABLY DISCHARGE ON 04/23/20 WITH HOME HEALTH COMING ABOARD TO ASSIST PATIENT AT HOME WILL CONTINUE TO MONITOR PATIENT FOR SAFETY AND BEHAVIORS.
[2020-04-09 19:32] VITALS: BP 144/48
--- NOTE | 2020-04-09 23:30 | NUR ---
ASSUMED CARE OF PT AT 1930. PT IS A&O TO SELF, PLACE, & TIME. IS STABLE. REPORTS ABD PAIN THE IS BEING MANAGED WITH ORAL MEDS & OTHER THERAPUETIC TECHNIQUES. IS ON ROOM AIR. IS UP WITH 1 ASSIST, GB, WALKER TO BEDSIDE COMMODE. PT HAS CALLED OUT TO USE THE BATHROOM 4 TIMES FROM THE START OF THE SHIFT TO 1999. PT REPORTED BEING ANXIOUS SINCE NOT BEING AT HOME & BELIEVES THAT HER STOMACH ISSUES MAY BE LINK TO HER ANXIETY. SHE REPORTED THAT SHE WAS WEAK FROM DIALYSIS TODAY. FALL PRECAUTIONS & HOURLY ROUNDING CONTINUED THIS SHIFT. PT IS CURRENTLY SLEEPING. CALL LIGHT WITHIN REACH. LABS & VITALS REVIEWED. WILL CONTINUE TO MONITOR.
[2020-04-10 09:51] VITALS: BP 113/42
--- NOTE | 2020-04-10 10:55 | NUR ---
WOUND CARE F/U; THE PATIENTS RIGHT BUTTOCKS/DENA-RECTAL WOUND. THE WOUND IS LESS TENDER. NO OTHER S/S OF INFECTION. NO DRAINAGE SEEN. NO S/S OF INFECTION REPORTED FROM NURSING. THE PATIENT HAS AN APPETITE. RECOMMENDATION; CONTINUE CURRENT TX RN PRESENT AND A PICTURE WAS TAKEN
[2020-04-10 11:00] VITALS: BP 130/56
--- NOTE | 2020-04-10 11:16 | NUR ---
ASSUMED CARE AROUND 0700, PT A&O X 4, NO ACUTE CHANGES DURING SHIFT. VSS, O2 ON RA. PT C/O NAUSEA RELIEVED WITH PRN ZOFRAN. BLE EDEMA, DRESSING CHANGED TO R BUTT. DIALYSIS T/TH/SAT TESSIO TO R CHEST. PT CONTINENT, BM 04/09/20. PT RESTING IN BED, CALL LIGHT WITHIN REACH, WILL CONTINUE TO MONITOR PER POC.
[2020-04-10 19:50] VITALS: BP 135/55
--- NOTE | 2020-04-11 02:40 | NUR ---
UP TO TOILET WITH MOD ASSIST AT HS FOR SMALL VOID AND SMALL BM. STOMACH UPSET DECREASED AFTER ZOFRAN AND TUMS. NUMEROUS REQUESTS. ANTICIPATING DIALYSIS TODAY
[2020-04-11 08:00] VITALS: BP 139/59
[2020-04-11 09:38] LABS: CALCIUM 8.7 mg/dL (8.5-10.1); CREATININE 4.5 mg/dL (0.6-1.0)
[2020-04-11 09:42] LABS: ALBUMIN 1.9 g/dL (3.4-5.0)
--- NOTE | 2020-04-11 16:02 | NUR ---
ASSUMED CARE OF PT AT 0720. PT IS A&OX3, IS FOREGETFUL. DENIES PAIN. IS STABLE. IS UP WITH 1 ASSIST, GB, WALKER. FALL PRECAUTIONS & HOURLY ROUNDING CONTINUED THIS SHIFT. LABS & VITALS REVIEWED. PT HAS SMALL WOUND ON RIGHT BUTTOCK. DRSG C/D/I. THIS NURSE TO CHANGE WHEN PT RETURNS FROM DIALYSIS. HAS RIGHT CHEST TESSIO INTACT. SPOKE WITH ANA MONZON, SHE WOULD LIKE FOR JAYDA TRAN IN TO CALL TO GIVE AN UPDATE ON POSSIBLY GETTING SOME EQUIPMENT FOR WHEN PT DISCHAGES HOME. THIS NURSE ATTEMPTED TO CALL CHELSEA WITHOUT SUCCESS. WILL PASS ON TO NIGHT NURSE. MEDS HELD FOR DIALYSIS. WILL CONTINUE TO MONITOR UPON RETURN.
[2020-04-11 20:25] VITALS: BP 146/40
--- NOTE | 2020-04-12 01:09 | NUR ---
PT ALERT AND ORIENTED X 4, FORGETFUL. RIGHT TESSIO DRESSING C/D/I. PT C/O STOMACH DISCOMFORT. SCHEDULED TYLENOL AND TUMS GIVEN AT HS. BED ALARM ON FOR SAFETY. PT APPEARS TO BE SLEEPING ON HOURLY ROUNDS.
[2020-04-12 06:40] LABS: ALBUMIN 1.9 g/dL (3.4-5.0); CALCIUM 8.2 mg/dL (8.5-10.1); CREATININE 2.7 mg/dL (0.6-1.0); PHOSPHORUS 2.9 mg/dL (2.5-4.9); POTASSIUM 3.8 mmol/L (3.5-5.1)
[2020-04-12 08:00] VITALS: BP 117/39
--- NOTE | 2020-04-12 14:35 | NUR ---
ASSUMED CARES AT 0700. PT AWAKE, ALERT AND ORIENTED*4 BUT FORGETFUL. DENIES PAIN. VITALS REMAIN STABLE. PT C/O NAUSEA THAT WAS RESOLVED BY REPOSITIONING AND A BURP. RIGHT CHEST TESIO REMAINS INTACT AND DRY. PY CONTINUES TO HAVE BLE EDEMA, TEDHOSE IN PLACE AND EXTREMITIES ELEVATED. PT UP WITH 1 MIN ASSIST, GB AND WALKER AND TOLERATED WELL. Q1H VISUAL CHECKS. CALL LIGHT WITHIN REACH. FALL PRECAUTIONS IN PLACE
[2020-04-12 20:00] VITALS: BP 131/43
--- NOTE | 2020-04-13 00:42 | NUR ---
PT ALERT AND ORIENTED X 4, FORGETFUL. AMB TO BR WITH WALKER AND ASSIST X 1 WITHOUT DIFFICULTY. RIGHT TESSIO DRESSING C/D/I. PT C/O STOMACH DISCOMFORT. SCHEDULED TYLENOL AND TUMS GIVEN AT HS. PT UP TO BATHROOM NUMEROUS TIMES TONIGHT. CALLS OUT FREQUENTLY FOR VARIOUS THINGS. BED ALARM ON FOR SAFETY. PT CHECKED ON HOURLY ROUNDS.
[2020-04-13 05:58] LABS: ALBUMIN 1.8 g/dL (3.4-5.0); CALCIUM 8.3 mg/dL (8.5-10.1); CREATININE 3.7 mg/dL (0.6-1.0); PHOSPHORUS 3.2 mg/dL (2.5-4.9); POTASSIUM 3.6 mmol/L (3.5-5.1)
[2020-04-13 07:30] VITALS: BP 124/53
--- NOTE | 2020-04-13 15:30 | NUR ---
ASSUMED CARE AT 1330. PATIENT IS ALERT, AND AWAKE, BUT SOME CONFUSION AND FORGETFULNESS NOTED. PT C/O NAUSEA. MEDICATION GIVEN. PATIENT HAS RIGHT CHEST TESSIO ACCESS FOR DIALYSIS. PLAN DIALYSIS LATER THIS AFTERNOON. PATIENT HAS RITESH L.E. EDEMA. FALL AND SAFETY PROTOCOLS IN PLACE. CONTINUES TO PROGRESS SLOWLY TOWARDS D/C GOALS. WILL CONTINUE TO MONITER.
[2020-04-13 19:39] VITALS: BP 134/48
--- NOTE | 2020-04-13 19:47 | NUR ---
ASSUMED CARES AT 0700. PT AWAKE, ALERT AND ORIENTED*4 BUT FORGETFUL. C/O ABDOMINAL DISCOMFORT AND NAUSEA, ZOFRAN AND TUMS ADMINISTERED NEEDED. VITALS REMAIN STABLE. RIGHT CHEST TESIO INTANT, DRESSING IS DRY. PT RECEIVING DIALYSIS FROM 1330. UP WITH 1 MIN ASSIST, GB AND WALKER. PARTICIPATED WELL IN ALL THERAPIES. Q1H VISUAL CHECKS. CALL LIGHT WITHIN REACH. FALL PRECAUTION IN PLACE
--- NOTE | 2020-04-14 01:32 | NUR ---
ASSUMED CARES AT 1900. PT IN BED AWAKE, ALERT AND ORIENTED*4 BUT FORGETFUL. VITALS ARE STABLE. PT C/O HEADACHE AND EPIGASTRIC PAIN, ACETAMINOPHEN AND TUMS ADMINISTERED NEEDED. C/O NAUSEA, PT REPOSITIONED. ABD SOFT AND ROUND, *1 BM THIS EVENING. PT VOIDING SMALL AMOUNTS OF LIGHT YELLOW URINE, NO FOUL ODOR. TESIO ON CHEST RIGHT REMAINS DRY AND INTACT. PT SLEEPING FROM 1000. UP WITH 1 MIN ASSIST, GB AND WALKER. Q1H VISUAL CHECKS. CALL LIGHT WITHIN REACH. FALL PRECAUTIONS IN PLACE
[2020-04-14 07:35] VITALS: BP 136/54
--- NOTE | 2020-04-14 13:40 | NUR ---
Assumed pt care at 7am.Pt in bed alert and oriented x4 but forgetful. Assessment completed.vss.Pt c/o nausea when breakfast delivered.Po antinausea given with relief.Assisted pt to br with walker.Voided and performed am care with miimal assist.Pt in chair for both breakfast and lunch.Poor appetite noted.Resting in chair with feet elevated.Will continue to monitor.
[2020-04-14 19:44] VITALS: BP 127/44
--- NOTE | 2020-04-15 00:34 | NUR ---
PT ALERT AND ORIENTED X 4, FORGETFUL. AMB TO BR WITH WALKER AND ASSIST X 1. RIGHT TESSIO DRESSING C/D/I. PT C/O ABDOMINAL DISCOMFORT. SCHEDULED TYLENOL AND TUMS GIVEN AT HS. BED ALARM ON FOR SAFETY. PT APPEARS TO BE SLEEPING ON HOURLY ROUNDS.
[2020-04-15 07:25] VITALS: BP 133/46
[2020-04-15 08:12] LABS: CALCIUM 8.4 mg/dL (8.5-10.1); CREATININE 3.3 mg/dL (0.6-1.0); PHOSPHORUS 2.8 mg/dL (2.5-4.9); POTASSIUM 3.9 mmol/L (3.5-5.1)
--- NOTE | 2020-04-15 13:26 | NUR ---
ASSUMED CARES AT 0700. PT AWAKE, ALERT AND ORIENTED*4 BUT FORGETFUL. VITALS REMAIN STABLE. PT C/O ABDOMINAL DISCOMFORT, DENIES NAUSEA. ABDOMEN SOFT AND OBESE, *2 BM TODAY, BS HYPERACTIVE. PT EATING LESS THAN 50% OF HER MEALS, STATES THAT SHE DOESN'T LIKE THE FOOD, DIFFERENT MEALS OFFERED BUT PT REFUSES. RIGHT CHEST TESIO REMAINS DRY AND INTACT. WOUND ON SACRAL AREA, CLEANED AND BARRIER CREAM APPLIED, DOUG. PT UP WITH 1 MIN ASSIST, GB AND WALKER AND TOLERATED WELL. Q1H VISUAL CHECKS. CALL LIGHT WITHIN REACH. FALL PRECAUTIONS IN PLACE
[2020-04-15 19:39] VITALS: BP 143/45
--- NOTE | 2020-04-16 03:47 | NUR ---
ASSUMED CARE AT APPROX 1900 EVENING 04/15. PT LYING IN BED WITH HEAD OF BED ELEVATED AT CHANGE OF SHIFT. PT C/O ABD PAIN AND REQUESTED HS TYLENOL EARLY. PT TOOK HS MEDS WITH WATER TOLERATING WELL. PT UP TO BATHROOM TO VOID WITH WALKER AND 1 ASSIST BEFORE FALLING ASLEEP. PT APPEARS TO BE SLEEPING SOUNDLY WITH HOURLY ROUNDING CHECKS. BED ALARM ON AND CALL LIGHT IN REACH. WILL CONTINUE TO MONITOR.
[2020-04-16 07:15] VITALS: BP 124/50
--- NOTE | 2020-04-16 09:43 | NUR ---
WOUND CARE F/U; ASSESS R BUTTOCK/PERIRECTAL WOUND W/ CORPORATE QUALITY ENGINEER LUIGI, WOUND ALMOST CLOSED, NO DRSG WAS ON, NO DRAINAGE, NO S/S INFECTION, HEALING, COOPERATIVE, NO PAIN, SEE PROCESS INTERVENTION FOR WOUND DETAILS RECOMMENDATIONS; CONT POC W/ AQUACEL AND BORDER FOAM DRSG DAILY AND PRN UNTIL WOUND CLOSED CORPORATE QUALITY ENGINEER AWARE
--- NOTE | 2020-04-16 13:24 | NUR ---
team meeting, recommendation: family to assist with bill and pills, dc th with hh ( pt, ot, st, nursing and sw). [facility]. no driving. will cont following as needed for dc needs. need to check with family to see if she has her own equip and how many stairs are in house.
--- NOTE | 2020-04-16 14:28 | PLAN ---
[facility] [place] [address] REHAB UNIT PLAN OF CARE Name: RICH RIVERA Room #: 506-1 ADM IN M.R.#: [id number] Admission: 04/05/20 Attend Phys: Gutierrez Hyman MD Discharge: Date of : 31 Report #: [id number] THIS REPORT FOR: //name// CC: Gutierrez Denny DATE OF SERVICE: 04/08/2020 SUBJECTIVE: The patient is seen back today in followup. She is in no distress. Last recorded temperature 36.5, pulse 71, respirations 20, blood pressure 140/57. She is pleasant. She has some decreased insight into her deficits, but with explaining seemed to understand more fully. Vital signs are stable. No focal calf swelling. Transfers are max assist. Gait was min assist 24 feet with a front-wheeled walker. In occupational therapy, lower body dressing is dependent. In speech therapy, she ws noted to have severe cognitive deficits with severe memory deficits. ASSESSMENT: 1. Proximal myopathy. 2. 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 3. Chest pain, noncardiac. 4. Prior severe rhabdomyolysis, which has improved. 5. Vyypiygu-ay-tjgjsi mitral regurgitation. 6. Hypertension with hypotension. 7. Diabetes mellitus, type 2. PLAN: The overall plan of care is based on the preadmission screen, post-admission physician evaluation and information garnered from therapy assessments. 1. Estimated length of stay is at least 10 days to 2 weeks. 2. Medical prognosis is reasonably good. 3. Anticipated interventions include the interdisciplinary acute inpatient rehabilitation stay. 4. Anticipated functional outcomes would be for the patient to improve as far as strength, mobility, ADLs and hopefully cognition, so that she can return back to the home setting. She needs to improve specifically regarding transfers as she needs quite a bit of assistance as well as gait mobility, ADLs and cognition. 5. Discharge destination is going to be back to the home setting where she lives with her retired son. 6. Expected therapy by discipline includes PT, OT and speech 1 hour per day each five days a week throughout the duration of the acute inpatient rehabilitation stay. [address] [address] REHAB UNIT PLAN OF CARE Name: RICH RIVERA EVELIN Room #: 506-1 ADM IN M.R.#: [id number] Admission: 04/05/20 Attend Phys: Gutierrez Hyman MD Discharge: Date of : 31 Report #: [id number] Again, for estimated length of stay it is probably at least 10 days to 2 weeks and potentially longer as warranted. <ELECTRONICALLY SIGNED> By: Gutierrez Hyman MD 04/16/20 1428 [id number] Gutierrez Hyman MD /nt
--- NOTE | 2020-04-16 14:28 | H ---
[facility] [place] [address] HISTORY AND PHYSICAL Name: RICH RIVERA Room #: 506-1 ADM IN M.R.#: [id number] Admission: 04/05/20 Attend Phys: Gutierrez Hyman MD Discharge: Date of : 31 Report #: [id number] THIS REPORT FOR: cc: Daniel Denny MD, Stanley P. MD Smithson, David G. MD ~ CC: Gutierrez Denny DATE OF SERVICE: 04/05/2020 HISTORY AND PHYSICAL AND POST-ADMISSION PHYSICIAN EVALUATION HISTORY OF PRESENT ILLNESS: The patient has been readmitted back to the acute in-hospital inpatient rehabilitation [place]. Please see the prior history and physical and discharge dictation. Also, please see the current history and physical documentation. I agree with documentation as noted. The patient is an 89-year-old -B[place] female with a proximal myopathy and severe rhabdomyolysis with acute renal insufficiency requiring hemodialysis. She was transferred off the rehab cal[place] after she developed acute chest pain, was on the telemetry floor, underwent further workup. She was ruled out from a cardiac perspective and was seen by GI. She had an EGD, which showed mild gastritis and a small hiatal hernia. Chest pain was noted to be able to be reproduced with pressure applied. She also had a tunneled dialysis catheter placed and is to continue on hemodialysis as per Nephrology. She has now been admitted with her significant proximal myopathy and improved rhabdomyolysis for inpatient rehabilitation. As far as past medical history, habits, social history, allergies, please see the history and physical documentation. MEDICATIONS: Per MAR. REVIEW OF SYSTEMS: Did not have any specific complaints of chest pain, shortness of breath, abdominal discomfort. Had complains of weakness with functional mobility as expected. PHYSICAL EXAMINATION: GENERAL: The patient was seen later yesterday. She was in no distress. Vitals are as noted. NEUROLOGIC: She is pleasant, sitting up at the edge of the bed. Facies are symmetric. CHEST: Sounded clear. HEENT: Appeared to be benign. CARDIOVASCULAR: Sounded regular rate and rhythm. Some tenderness to palpation of the chest wall itself. [facility] [address] [place] [address] HISTORY AND PHYSICAL Name: RICH RIVERA Room #: 506-1 ADM IN .R.#: [id number] Admission: 04/05/20 Attend Phys: Gutierrez Hyman MD Discharge: Date of : 31 Report #: [id number] ABDOMEN: Bowel sounds positive, nontender. GENITOURINARY AND RECTAL: Deferred. EXTREMITIES: She has functional range of motion of both upper extremities. Sanitary Landfill Supervisor are equal. Strength is probably a grade 3+/5. Lower extremities strength is probably a grade 3 to 3+/5. Tone appeared to be intact. She has been max assist, trying to come to stand and has been able to ambulate a short distance a few feet with a front-wheeled walker. No obvious focal sensory decrease. DTRs were decreased symmetric. ASSESSMENT: The patient is an 89-year-old -Bhut[place] female with the following problem list: 1. Proximal myopathy. 2. Acute renal insufficiency superimposed on chronic kidney disease, now dialysis dependent. 3. Chest pain, noncardiac. 4. Prior severe rhabdomyolysis, which has improved. 5. Bvztbdbk-pw-xlzxit mitral regurgitation. 6. Hypertension with hypotension. 7. Diabetes mellitus type 2. PLAN: The patient has been admitted for acute in-hospital inpatient rehabilitation. From a postadmission physician evaluation perspective, there are no relevant changes since the preadmission screening. Please see the above review of prior and current medical and functional conditions and comorbidities. Please see the patient's previous and current functional status. As far as risk of complications, the patient has multiple medical comorbidities as noted above. Initial plan of care involves the interdisciplinary acute inpatient rehabilitation program. Measurable functional goals would be for the patient to improve transfers, mobility, ADLs, so she can hopefully return back to her prior living situation. Prognosis is reasonably good with estimated length of stay probably at least 10 days to 2 weeks and likely longer if warranted. Also have speech therapy involved to assess regarding cognition, communication. Potential barriers would include her multiple medical comorbidities and decreased functional status. The patient meets diagnostic criteria for an acute in-hospital inpatient rehabilitation stay. She meets the medical necessity criteria and has had multiple medical comorbidities as noted above. We will have the bmw sales consultant physicians continue to follow up. She does have the tolerance for therapies and has appropriate discharge goals back to the home setting. <ELECTRONICALLY SIGNED> By: Gutierrez Hyman MD 04/16/20 1428 [id number] Gutierrez Hyman MD /[facility]
--- NOTE | 2020-04-16 15:14 | NUR ---
PATIENT IS ALERT AND ORINETED X 3-4 BUT FORGETFUL. LUNG WITH DIMINISHED SOUND PER AUSCULTATION IN ALL LOBE. BS+X4, ABD SOFT ROUND. PATIENT REQUESTED TO HAVE 1400HR CALCIUM CARBONATE EARLY DUE TO ABD PAIN, AND WAS GIVEN TO HER REQUESTED. SURGERY CONSULT FOR POSSIBLE 1&D PLACEMENT COMPLETED, SPOKE WITH MIKE AND DR. MARTINEZ. DRESSING TO BUTTOCKS/PERIRECTAL AREA CHANGED BY WOUND CARE NURSE, NO DRAINGAGE NOTED, AREA ALMOST CLOSED. PATIENT HAD BOWEL MOVEMENT TODAY. PATIENT TOOK ALL MEDICATION WHOLE WITHOUT DIFFICULTY. CONTINUE TO HAVE EDEMA TO BLE, RITESH LEG ELEVATED. TESIO TO RIGHT CHEST IN PLACE, DAILYSIS ON-GOING. PATIENT RATED PAIN 4/10, PAIN DECREASED TO 2/10 WHEN REASSESSED. NO SIGN OF ACUTE DISTRESS NOTED AT THIS TIME, WILL MONITOR FOR SAFETY.
[2020-04-16 19:45] VITALS: BP 123/46
--- NOTE | 2020-04-16 22:35 | NUR ---
ASSUMED CARE OF PT AT 1915. PT IS A&OX3. IS FORGETFUL. IS STABLE. REPORTS GENERALIZED ABD PAIN THAT IS MANAGED WITH MEDS & OTHER THERAPUETIC TECHNIQUES. IS ON ROOM AIR. IS UP WITH MIN ASSIST OF 1, GB, WALKER TO BATHROOM. FALL PRECAUTIONS & HOURLY ROUNDING CONTINUED THIS SHIFT. LABS & VITALS REVIEWED. PT HAS RIGHT CHEST TESIO CATH IN PLACE FOR DIALYSIS. PT IS IN BED. CALL LIGHT WITHIN REACH. WILL CONTINUE TO MONITOR.
[2020-04-17 08:00] VITALS: BP 128/52
--- NOTE | 2020-04-17 13:51 | NUR ---
ASSUMED CARES AT 0700. PT AWAKE, ALERT AND ORIENTED*4, FORGETFUL AND IMPULSIVE. PT TRANSFERRED SELF TO BED AND STATED THAT SHE DIDN'T KNOW SHE HAD TO CALL FOR HELP. VITALS REMAIN STABLE. C/O HEADACHE, TYLENOL ADMINISTERED NEEDED. SACRAL WOUND CLEANED AND PT ENCOURAGED TO STAY OFF HER BOTTOM BY REPOSITIONING. RIGHT CHEST TESIO REMAINS DRY AND INTACT. PT CONTINUES TO HAVE BLE EDEMA, DYANA HOSE IN PLACE AND EXTREMITIES ELEVATED. PT UP WITH 1 MIN ASSIST, GB AND WALKER AND TOLERATED WELL. Q1H VISUAL CHECKS. CALL LIGHT WITHIN REACH. FALL PRECAUTIONS IN PLACE
--- NOTE | 2020-04-17 14:39 | NUR ---
FOLLOWED UP ON REFERRAL FAXED TO [facility] SPOKE WITH JOE IN INTAKE THEY CAN ACCEPT AT DISCHARGE. ANTICIPATE DC 04/23.
[2020-04-17 20:04] VITALS: BP 149/54
--- NOTE | 2020-04-17 22:59 | NUR ---
ASSUMED CARE OF PT AT 1915. PT IS A&OX3, CONFUSED, & IMPULSIVE. IS STABLE. IS UP WITH 1 ASSIST, GB, WALKER. FALL PRECAUTIONS & HOURLY ROUNDING CONTINUED THIS SHIFT. LABS & VITALS REVIEWED. DRSG TO RIGHT BUTTOCKS INTACT. PT DENIES ABD PAIN AT THIS TIME. EDEMA NOTED IN BILAT LE. TESIO TO LEFT CHEST, DRSG INTACT. PT SCHEDULED FOR DIALYSIS TOMORROW AFTERNOON. WILL CONTINUE TO MONITOR.
--- NOTE | 2020-04-18 06:00 | NUR ---
Assumed pt care at 0100. Pt A/OX3,able to voice needs. Slept on and off this shift. Fall precautions in place,will continue to monitor pt.
[2020-04-18 06:14] LABS: ALBUMIN 1.7 g/dL (3.4-5.0); CREATININE 3.3 mg/dL (0.6-1.0); PHOSPHORUS 2.6 mg/dL (2.5-4.9); POTASSIUM 3.8 mmol/L (3.5-5.1)
[2020-04-18 09:57] LABS: WBC 3.9 thou/uL (4.0-11.0)
[2020-04-18 09:59] LABS: HEMATOCRIT 20.4 % (37.0-47.0); MCH 25.6 pg (26.0-34.0); MCHC 31.3 g/dL (28.0-37.0); MCV 81.7 fL (80.0-100.0); RBC 2.49 mil/uL (4.20-5.00); RDW 18.1 % (10.5-14.5)
[2020-04-18 10:03] LABS: HEMOGLOBIN 6.4 gm/dL (12.0-15.0)
[2020-04-18 10:30] VITALS: BP 121/64
[2020-04-18 10:52] LABS: HEMATOCRIT 23.2 % (37.0-47.0); HEMOGLOBIN 7.3 gm/dL (12.0-15.0)
--- NOTE | 2020-04-18 12:23 | NUR ---
WOUND CARE F/U ASSESS PERIRECTAL WOUND, DRSG INTACT, NO DRAINAGE, HEALING, ALMOST CLOSED, NO S/S INFECTION, COOPERATIVE,DENIES PAIN, SEE PROCESS INTERVENTION FOR WOUND DETAILS RECOMMENDATIONS CONT POC W/ AQUACEL AG AND BORDER FOAM DRSG TILL ALL HEALED, KEEP COVERED SINCE WOUND SO CLOSE TO RECTUM STOVE BOTTOM WORKER AWARE
--- NOTE | 2020-04-18 16:40 | NUR ---
ASSUMED CARE AT SHIFT CHANGE ALERT AND ORIENTED X3-4 AND FORGETFUL AT TIMES. BLE 3+ EDEMA NOTED,EXTREMETIES ELEVATED WITH PILLOW AND INSTRUCTED PATIENT TO KEEP THEM ELEVATED. VSS, DIALIZING, 1 UNIT OF RBC GIVEN WITH DIALYSIS. AND WILL CONTINUE WITH POC.
[2020-04-18 17:10] VITALS: BP 146/64; BP 153/76
[2020-04-18 21:25] VITALS: BP 110/40
[2020-04-19 02:06] LABS: HEPATITIS B SURFACE AG Negative (Negative)
--- NOTE | 2020-04-19 03:33 | NUR ---
assumed care at approx 1900 evening 04/18. pt sitting up in bed at change of shift alert and oriented x4. pt up to bathroom with walker with 1 assist before falling asleep at hs. pt took hs meds with water tolerating well. pt appears to be sleeping soundly with hourly rounding checks. bed alarm on and call light in reach. will continue to monitor.
[2020-04-19 06:04] LABS: HEMATOCRIT 23.8 % (37.0-47.0); HEMOGLOBIN 7.7 gm/dL (12.0-15.0)
[2020-04-19 07:30] VITALS: BP 116/41
--- NOTE | 2020-04-19 08:00 | NUR ---
Assumed care 0700. Denies complaints. Compliant with calling for help. A & O x4. Pleasant attitude.
--- NOTE | 2020-04-19 12:52 | HC ---
[facility] [place] [address] CONSULTATION Name: RICH RIVERA Room #: 506-1 ADM IN M.R.#: [id number] Admission: 04/05/20 Attend Phys: Gutierrez Hyman MD Discharge: Date of : 31 Report #: [id number] THIS REPORT FOR: cc: Daniel Denny MD, Stanley P. MD Soliman, Mohsin Q. MD [facility] ~ CC: Gutierrez Denny DATE OF SERVICE: 04/16/2020 REFERRING PROVIDER: Gutierrez Hyman MD REASON FOR CONSULTATION: Buttock abscess. HISTORY OF PRESENT ILLNESS: The patient is an 89-year-old -Stateless female who was initially admitted to the inpatient rehabilitation unit for proximal myopathy and rhabdomyolysis with acute kidney injury requiring hemodialysis. The patient was undergoing appropriate rehabilitative efforts when she developed acute chest pain, was transferred to the telemetry floor where she was seen by Cardiology and Gastroenterology. The patient's chest pain was ruled out as cardiac in origin and underwent a full GI workup including EGD showing a small hiatal hernia with gastritis. The patient has since improved and has been readmitted to the inpatient rehabilitation unit whereby she was complaining of right perianal pain with evidence of fullness and as such, I am asked to evaluate for possible abscess. PAST MEDICAL HISTORY: Acute kidney injury, on hemodialysis; chest pain; chronic kidney disease; fatigue; orthostatic hypotension; generalized debility. MEDICATIONS: Nitroglycerin p.r.n., Tylenol, Neurontin, MiraLax, Protonix, iron, Imdur, calcium and vitamin D3, Zofran p.r.n., and folic acid. ALLERGIES: NAPROXEN and STATINS, which caused her rhabdomyolysis. SOCIAL HISTORY: Does not utilize tobacco, alcohol or illicit drugs. FAMILY HISTORY: Reviewed and noncontributory. REVIEW OF SYSTEMS: GENERAL: The patient denies nocturnal fevers or chills. HEENT: No change in vision, change in hearing. NECK: No swelling or difficulty swallowing. HEART: No chest pain or palpitations. LUNGS: No cough or shortness of breath. ABDOMEN: No nausea, no vomiting. [facility] [address] [place] [address] CONSULTATION Name: RICH RIVERA Room #: 506-1 ADM IN M.R.#: [id number] Admission: 04/05/20 Attend Phys: Gutierrez Hyman MD Discharge: Date of : 31 Report #: [id number] GENITOURINARY: No dysuria or hematuria. ENDOCRINE: No polyuria or polydipsia. HEMATOLOGIC: No history of bleeding or easy bruising. EXTREMITIES: No history of weakness or limited range of motion. NEUROLOGIC: No history of syncope or near syncopal episodes. SKIN AND INTEGUMENT: No previous history of abnormal lesions or moles. PHYSICAL EXAMINATION: VITAL SIGNS: Temperature 97.8, pulse 82, respirations 18, blood pressure 140/88. GENERAL: Alert, in no acute distress. HEENT: Normocephalic, atraumatic. Pupils equal, round, reactive to light. NECK: Supple, without lymphadenopathy. Trachea midline. HEART: Regular rate and rhythm. LUNGS: Clear to auscultation bilaterally. ABDOMEN: Soft, nontender, nondistended, positive bowel sounds. GENITOURINARY: Normal external female genitalia. EXTREMITIES: No clubbing, cyanosis or edema. NEUROLOGIC: Cranial nerves 2-12 are grossly intact. PSYCHIATRIC: Normal mood and affect. SKIN AND INTEGUMENT: Perianal region shows an area of induration and fullness on the right buttock just to the lateral aspect of the anus. There is no fluctuance and the patient states her tenderness has improved markedly over the past day or so. RECTAL: With a brusher operator at the bedside present shows no fullness in the rectum itself and therefore, this appears to be in the gluteus muscle as opposed to a perianal or perirectal location. LABORATORY AND X-RAY DATA: None. ASSESSMENT AND PLAN: An 89-year-old -Stateless female with what appears to be a right gluteal abscess without drainable fluid at this time as she only has significant induration that is improving without fluctuance. I recommend at this time, continuation of Sitz baths, warm compresses and oral antibiotics and it should improve with time. I will see the patient again tomorrow to assess further and I am available for bedside incision and drainage if/when the need should arise. I sincerely appreciate this consult. We will follow her closely and leave any further recommendations in the patient's chart as appropriate. <ELECTRONICALLY SIGNED> By: Theo Núñez MD, FACS 04/19/20 1252 [id number] Theo Núñez MD, FACS /nt
--- NOTE | 2020-04-19 17:42 | NUR ---
Cooperative, med compliant. Any late meds due to hectic milieu, unrelenting. Asks for hgelp when up to toilet. Ankle edema 1 + left ankle, 2+ right ankle. Gonzalo hose on. Complains of being cold, warm air coming out of register. Given blankets. Given soda pop x 1. Lungs clear, HR regular, bowel sounds+.
[2020-04-19 19:40] VITALS: BP 124/45
--- NOTE | 2020-04-19 21:00 | NUR ---
Late Day Shift Note: Zoey called saying patient did not understand why she needed an IV even though she was informed that she needed Iron IVP and would be getting it once a day for 5 days. It was clarified with zoey that this nurse had not been the nurse to talk with her before and that the message had not gotten passed on to this nurse to return nijose's call. Zoey questioned if this delay in getting all of her 5 doses of Iron would delay patient's discharge, zoey was directed to S.W./nurse case manager of [facility] and to call on Wednesday. Two different nurses attempted to start IV twice with no success. Nursing [employer] was unable to attempt IV start, suggested [facility] nurse try, no success as 2nd nurse to try it. Plan is to locate IV Team/Charge nurse from ICU or ER to attempt IV start tomorrow and resume series with second dose on Wednesday and continue the total of 5 doses. If IV unable to be started then to notify Carmen JAMES for further instructions.
--- NOTE | 2020-04-20 04:17 | NUR ---
assumed care at approx 1900 evening 04/19. pt alert and oriented x4. pt appropriate and cooperative. assisted pt up to bathroom before hs. pt took hs meds with water tolerating well. pt appears to be sleeping soundly with hourly rounding checks. bed alarm on and call light in reach. will continue to monitor.
[2020-04-20 06:12] LABS: HEMATOCRIT 25.1 % (37.0-47.0)
[2020-04-20 06:53] LABS: CREATININE 2.8 mg/dL (0.6-1.0); PHOSPHORUS 2.3 mg/dL (2.5-4.9); POTASSIUM 3.7 mmol/L (3.5-5.1)
[2020-04-20 08:00] VITALS: BP 130/56
--- NOTE | 2020-04-20 10:31 | NUR ---
IV TEAM PAGED X 2, NO RESPONSE, CALLED AND LEFT MESSAGE ON DR. PEREZ' VOICEMAIN REGARDING INABILITY TO GAIN IV ACCESS. DR. LLANES RETURNED CALL, AND STATES "IRON SUCROSE SHOULD BE GIVEN THROUGH DIALYSIS". DIALYSIS CALLED, SPOKE WITH (COLT) WHO STATES HE WILL SEND MESSAGE TO NURSE ON-CALL (MAEGAN LINDSEY) TO CONTACT US. AWAITING CALL BACK FROM NURSE MAEGAN.
[2020-04-20 19:26] VITALS: BP 126/50
--- NOTE | 2020-04-21 03:39 | NUR ---
PT CALLS WITH NEEDS. DENIES PAIN UPON ASSESSMENT. WALKS TO BATHROOM WITH SBA WALKER AND GAITBELT.TEDS UNCOMFORTABLE SO REMOVED FOR THE NOC WILL RE-APPLY IN THE MORNING. BLE ELEVATED.S/P HD LATE IN THE DAY BP STABLE.AFEBRIL. OLIGURIC. WILL CONTINUE WITH POC TILL EOS.
[2020-04-21 08:12] VITALS: BP 116/46
--- NOTE | 2020-04-21 11:45 | NUR ---
PATIENT STATED HAD GOOD NIGHT. STATED COLD DURING THE MORNING HOURS. PATIENT MED COMPLIANT. ASSISTED INTO WHEELCHAIR PRIOR TO BREAKFAST. NO PAIN WHEN ASSESSED. CALL IV TEAM TO START IV ON PATIENT FOR DAILY IRON ADMINISTRATION. APPETITE POOR - STATED DID NOT LIKE SCRAMBLED EGGS. HAD HER CEREAL.
[2020-04-21 19:10] VITALS: BP 96/40
--- NOTE | 2020-04-21 22:43 | NUR ---
ASSUMED CARE OF PT AT 1915. PT IS A&OX3. IS FORGETFUL. IS ON ROOM AIR. DENIES PAIN AT THIS TIME. IS UP WITH 1 ASSIST, GB, WALKER TO BATHROOM. FALL PRECAUTIONS & HOURLY ROUNDING CONTNUED THIS SHIFT. PT HAS RIGHT CHEST TESIO ON PLACE. RFA IV INTACT. HAS BILAT LE TIGHT EDEMA. LEGS ELEVATED. PT REFUSED TO OFFLOAD HEALS & WEAR SCDS. EDUCATION PROVIDED. LABS & VITALS REVIEWED. WILL CONTINUE TO MONITOR. PT IS CURRENTLY IN BED. CALL LIGHT WITHIN REACH.
[2020-04-22 07:06] LABS: ALBUMIN 1.8 g/dL (3.4-5.0); CREATININE 2.7 mg/dL (0.6-1.0); PHOSPHORUS 2.4 mg/dL (2.5-4.9); POTASSIUM 3.5 mmol/L (3.5-5.1)
[2020-04-22 07:20] VITALS: BP 106/43
--- NOTE | 2020-04-22 10:40 | NUR ---
WOUND CARE F/U ASSESSED R BUTTOCK/PERIRECTAL AREA, WOUND HEALED, NO REDDNESS, NO S/S INFECTION,DUE TO OCCASIONAL INCONT KEEP AREA CLEAN, APPLY BARRIER CREAM DAILY AND PRN, COOPERATIVE, POSSIBLE DC TOMORROW RECOMMENDATIONS; NO DRSG NEEDED, BARRIER CREAM ONLY DAILY AND PRN INBOUND CALL CENTER REPRESENTATIVE AWARE
--- NOTE | 2020-04-22 14:28 | NUR ---
ASSUMED CARES AT 0700. PT AWAKE, ALERT AND ORIENTED*4. DENIES PAIN. VITALS REMAIN STABLE. PT CONTINUES TO HAVE BLE EDEMA, EXTREMITIES ELEVATED WHEN AT REST AND DYANA HOSE IN PLACE. SACRAL WOUND WOUND CLEANED AND SHOVE UP. IV ON RIGHT FOREARM REMAINS INTACT AND PATEN, IV IRON ADMINISTERED ORDERED. PT UP WITH 1 MIN - SBA ASSIST, GB AND WALKER AND TOLERATED WELL. Q1H VISUAL CHECKS. CALL LIGHT WITHIN REACH. FALL PRECAUTIONS IN PLACE
[2020-04-22 19:30] VITALS: BP 120/47
--- NOTE | 2020-04-23 01:30 | NUR ---
ASSUMED CARE OF PT AT 1900HRS. PT AOX4 BUT SOMETIMES FORGETFUL. FALL PRECAUTION IN PLACE. PT TOOK ALL MEDS WHOLE WITH WATER. PT REPORTED SOME PAIN BUT DENIED NAUSEA OR SOA. IV DCed DUE TO COMPLETION OF TREATMENT. PT IS SCHEDULED FOR A DAILYSIS PRIOR TO DC TOMORROE. PT WAS ABLE TO GET COMFORTABLE AND SLEEP PART OF THE SHIFT. VSS AND NO S/S OF ACUTE DISTRESS. WILL CONTINUE TO MONITOR.
[2020-04-23 06:49] LABS: CALCIUM 8.2 mg/dL (8.5-10.1); CREATININE 3.2 mg/dL (0.6-1.0); PHOSPHORUS 2.6 mg/dL (2.5-4.9); POTASSIUM 3.7 mmol/L (3.5-5.1)
[2020-04-23] MEDS ORDERED: AUGMENTIN 500-1 EACH PO (07:18)
[2020-04-23] MEDS ORDERED: CALTRATE-600 W1 EACH PO (07:20)
[2020-04-23] MEDS ORDERED: BISACODYL10 MG RECTAL (07:20)
[2020-04-23] MEDS ORDERED: MIRALAX17 GM PO (07:21)
[2020-04-23] MEDS ORDERED: COLACE 100 MG100 MG PO (07:21)
[2020-04-23] MEDS ORDERED: ONDANSETRON HCL4 M3 DISSOLVE (07:23)
[2020-04-23] MEDS ORDERED: SENNA8.6 MG PO (07:23)
[2020-04-23] MEDS ORDERED: PANTOPRAZOLE SO40 M1 PO (07:24)
[2020-04-23] MEDS ORDERED: FOLIC ACID1 MG PO (07:25)
[2020-04-23 07:30] VITALS: BP 114/42
[2020-04-23 07:34] LABS: HEMATOCRIT 25.9 % (37.0-47.0); HEMOGLOBIN 8.2 gm/dL (12.0-15.0)
[2020-04-23 08:20] VITALS: BP 120/47
--- NOTE | 2020-04-23 10:11 | NUR ---
pt dc home today. jaz , faxed dc orders to [facility] [phone], phone # [phone]. pt to start at [facility] outpt dialysis [place] [place] location 3 x week. pt fredis alcantara to transport her home.
--- NOTE | 2020-04-23 14:41 | NUR ---
Alert and orientated without s/o distress. Pleasant and interactive, compliant with meds and cares. Able to ambulate with walker with slow, steady gait. Breath sounds clear and slightly diminished, bilaterally equal. Regular HR auscultated. Color pale pink with brisk capillary refill and palpable peripheral pulses. +3 edema in lower extremities. Double lumen cathetar per R subclavian.
--- NOTE | 2020-04-23 15:42 | NUR ---
PT WAS TO DISCHARGE TODAY [place] WITH [facility] [place] [facility] [place] IS HAVING A LATE DIALYSIS TODAY AND WILL NOT DC TIL TOMORROW. NOTIFIED [facility] AND [facility] SPOKE WITH INTAKE AT [facility] AND PT'S CHAIR TIME IS 1115 AND WILL NEED TO ARRIVE AT 1045 ON FIRST VISIT AND WILL HAVE DIALYSIS , , AND SAT. THE FIRST DIALYSIS WILL BE ON WEDNESDAY,
[2020-04-23 23:50] VITALS: BP 127/38
--- NOTE | 2020-04-24 02:54 | NUR ---
DIALYSIS LATE IN EVENING. APPRECIATES TYLENOL AND TUMS AT 2130, OTHER MEDS HELD UNTIL DIALYSIS FINISHED AT 2300. 2.5 LITERS OFF DURING TREATMENT. UP TO TOILET WITH GAITBELT, HER OWN WALKER, AND STANDBY ASSIST. RESTING WELL AND ABLE TO MOVE SELF UP IN BED
[2020-04-24 08:00] VITALS: BP 121/41
[2020-04-24 08:32] VITALS: BP 121/41
--- NOTE | 2020-04-24 10:41 | NUR ---
ASSUMED CARES AT 0700. PT AWAKE, ALERT AND ORIENTED *4 BUT FORGETFUL. DENIES PAIN AT THIS TIME. VITALS REMAIN STABLE. SACRAL WOUND HEALED, PT ENCOURAGE TO REPOSITION SELF WHEN IN BED. UP WITH 1 SBA, GB AND WALKER AND TOLERATED WELL. DC TEACHING COMPLETED WITH PT AT THE BEDSIDE. Q1H VISUAL CHECKS. CALL LIGHT WITHIN REACH. FALL PRECAUTIONS IN PLACE
== END 2020-04-24 12:31 | disposition home health service (06) | DRG 91 ==
PROVIDERS: Hospitalist; Internal Medicine; Internal Medicine Nephrology; Nurse Practitioner Family; ADMIT Physical Medicine & Rehabilitation; ATTEND Physical Medicine & Rehabilitation
PROC: 5A1D70Z Performance of Urinary Filtration, Intermittent, Less than 6 Hours Per Day (ICD-10-PCS; principal; 2020-04-16)
PROC: 30233N1 Transfusion of Nonautologous Red Blood Cells into Peripheral Vein, Percutaneous Approach (ICD-10-PCS; 2020-04-18)
PROC: 5A1D70Z Performance of Urinary Filtration, Intermittent, Less than 6 Hours Per Day (ICD-10-PCS; 2020-04-23)
DX: G72.89 Other specified myopathies (principal); N17.0 Acute kidney failure with tubular necrosis; N18.6 End stage renal disease; E43 Unspecified severe protein-calorie malnutrition; I12.0 Hypertensive chronic kidney disease with stage 5 chronic kidney disease or end stage renal disease; E78.00 Pure hypercholesterolemia, unspecified; M10.9 Gout, unspecified; E11.22 Type 2 diabetes mellitus with diabetic chronic kidney disease; R53.81 Other malaise; R07.89 Other chest pain; D64.9 Anemia, unspecified; I10 Essential (primary) hypertension; K57.90 Diverticulosis of intestine, part unspecified, without perforation or abscess without bleeding; I34.0 Nonrheumatic mitral (valve) insufficiency; I95.9 Hypotension, unspecified; K21.9 Gastro-esophageal reflux disease without esophagitis; Z90.710 Acquired absence of both cervix and uterus; Z88.8 Allergy status to other drugs, medicaments and biological substances; Z68.26 Body mass index [BMI] 26.0-26.9, adult; Z99.2 Dependence on renal dialysis; Z79.899 Other long term (current) drug therapy
CPT/HCPCS: 10112; 32100

== ENCOUNTER 2020-06-15 13:59 | Emergency (ER) | payer OTHER ==
[~2020-06-15] VITALS: Ht 167.6 cm; Wt 91.2 kg
[~2020-06-15 13:59] MED LIST changes: +AUGMENTIN 500-1 EACH PO; +BISACODYL10 MG RECTAL; +CALTRATE-600 W1 EACH PO; +COLACE 100 MG100 MG PO; +FOLIC ACID1 MG PO; +IMDUR 30 MG TAB30 M1 PO; +SENNA8.6 MG PO; +VENOFER20 MG/ML IV PUSH
[2020-06-15] MEDS ORDERED: SENNA-DOCUSATE1 EAC1 PO (16:02)
[2020-06-15] MEDS ORDERED: DULCOLAX10 MG RECTAL (16:02)
[2020-06-15] MEDS ORDERED: MIRALAX119 GM PO (16:02)
[2020-06-15 16:09] VITALS: BP 110/74
--- NOTE | 2020-06-16 16:43 | EKG ---
[facility] [place] [address] ELECTROCARDIOGRAM REPORT Name: RICH RIVERA Room #: DEP [facility].#: [id number] Admission: 06/15/20 Attend Phys: Discharge: 06/15/20 Date of : 32 Report #: [id number] THIS REPORT FOR: cc: Daniel Denny MD, Stanley P. MD Lundgren, Craig H. 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: Idalia : 1930 Requested By: Paulo Gerardo Order Number: [id number] MD: Van Paulson Measurements Intervals [place] Rate: 83 P: -30 MT: 189 QRS: 45 QRSD: 74 T: 119 QT: 369 QTc: 434 Interpretive Statements Sinus rhythm Nonspecific ST segment abnormality Baseline wander in lead(s) V6 Compared to ECG 04/03/2020 06:48:08 No significant changes Electronically Signed On 06-16-2020 16:42:57 CDT by Van Paulson [email or web address] <ELECTRONICALLY SIGNED> By: Van Paulson MD, [facility] 06/16/20 [id number] Van Paulson MD, [facility] /EPI
== END 2020-06-15 16:09 | disposition home or self-care (01) ==
LOC: ER 13:59
DX: K59.00 Constipation, unspecified (principal); I10 Essential (primary) hypertension; E78.5 Hyperlipidemia, unspecified; Z90.710 Acquired absence of both cervix and uterus; Z79.899 Other long term (current) drug therapy; Z88.8 Allergy status to other drugs, medicaments and biological substances